=== PATIENT | female | born 1980 | race Caucasian/White ===

== ENCOUNTER 2016-10-22 10:26 | Emergency (ER) | payer BC ==
[2016-10-22 11:14] VITALS: BP 130/83
--- NOTE | 2016-10-22 15:13 | UC ---
Respiratory Complaint HPI - HPI Summary HPI Summary: PATIENT PRESENTS TO WITH CC OF COUGH WITHOUT PRODUCTION, SOB, POST NASAL DRAINAGE, AND SINUS PRESSURE X 5 DAYS. SHE DENIES WILKINSON, N/V/C/D. SHE ENDORSES SICK CONTACTS BUT NO TRAVEL. SHE STATES SHE HAS SOB ONLY WHILE COUGHING. COUGHING IS RATED 8/10 AND WORSE AT NIGHT. DENIES INSOMNIA OR SLEEP APNEA. DENIES ALLERGIES AND TAKES NO MEDICATIONS. SHE STATES SHE GETS SINUS INFECTIONS ABOUT ONCE PER YEAR AND USUALLY IMPROVES ON AZITHROMYCIN. - History of Current Complaint Chief Complaint: UCRespiratory Stated Complaint: COUGH,CHEST CONGESTION Hx Obtained From: Patient Hx Last Menstrual Period: 10/09/16 ?: No Onset/Duration: Sudden Onset Timing: Constant Severity Initially: Moderate Severity Currently: Moderate Pain Intensity: 3 Pain Scale Used: 0-10 Numeric Character: Cough: Nonproductive Aggravating Factors: Allergens, Deep Breaths Alleviating Factors: Bronchodilator, Upright Position Associated Signs And Symptoms: Positive: Negative, URI, Nasal Congestion, Hoarseness, Sinus Discomfort - Risk Factors Pulmonary Embolism Risk Factors: Negative Cardiac Risk Factors: Negative Pseudomonas Risk Factors: Negative Tuberculosis Risk Factors: Negative - Allergies/Home Medications Allergies/Adverse Reactions: Allergies Allergy/AdvReac Type Severity Reaction Status Date / Time No Known Allergies Allergy Verified 10/22/16 11:09 Home Medications: Home Medications [id number] W/ APAP [Delsym Cough + Cold D... [id number] mg/10Ml] 1 liq PO Q4H PRN 10/22/16 [History Confirmed 10/22/16] PMH/Surg Hx/FS Hx/Imm Hx Previously Healthy: Yes Endocrine History Of: Reports: Thyroid Disease - hypothyroidism, Hypothyroidism Cardiovascular History Of: Denies: Pacemaker/ICD Respiratory History Of: Reports: Asthma - Primarily childhood asthma, exacerbated by sports - Surgical History Surgical History: None - Family History Known Family History: Negative: Cardiac Disease, Hypertension, Diabetes - Social History Occupation: Employed Full-time Lives: With Family Alcohol Use: Occasionally Substance Use Type: None Smoking Status (MU): Never Smoked Tobacco - Immunization History Most Recent Influenza Vaccination: 03/2014 Most Recent Tetanus Shot: Within past 5 years Most Recent Pneumonia Vaccination: Never Review of Systems Skin: Negative ENT: Sore Throat, Nasal Discharge Respiratory: Cough Cardiovascular: Negative Neurovascular: Negative Musculoskeletal: Negative Neurological: Negative Psychological: Negative All Other Systems Reviewed And Are Negative: Yes Physical Exam Triage Information Reviewed: Yes Appearance: Well-Appearing, No Pain Distress, Well-Nourished Vital Signs: Initial Vital Signs Temp 99.2 F 10/22/16 11:11 Pulse 84 10/22/16 11:11 Resp 14 10/22/16 11:11 BP 130/83 10/22/16 11:11 Pulse Ox 98 10/22/16 11:11 Vital Signs Reviewed: Yes Eye Exam: Normal Eyes: Positive: Conjunctiva Clear ENT Exam: Normal ENT: Positive: Pharynx normal, Nasal congestion, Nasal drainage, Muffled/hoarse voice, Other: - PRESSURE OVER MAXILLARY AND FRONTAL SINUS BILATERALLY Dental Exam: Normal Neck exam: Normal Neck: Positive: Supple, Nontender, No Lymphadenopathy Respiratory Exam: Normal Respiratory: Positive: Chest non-tender, Lungs clear Cardiovascular Exam: Normal Cardiovascular: Positive: RRR Musculoskeletal Exam: Normal Musculoskeletal: Positive: Strength Intact Neurological Exam: Normal Neurological: Positive: Alert Psychological Exam: Normal Psychological: Positive: Normal Response To Family Skin Exam: Normal UC Diagnostic Evaluation - Laboratory O2 Sat by Pulse Oximetry: 98 Respiratory Course/Dx - Course Course Of Treatment: PATIENT WITH SINUS PRESSURE OVER MAXILLARY SINUS BILATERALLY. COUGH WITH SOB. PATIENT GIVEN ROBITUSSIN, TESSALON PERLES AND AZITHROMYCIN. PATIENT WILL FOLLOW UP OR RETURN IF SYMPTOMS BECOME WORSE. - Differential Dx/Diagnosis Differential Diagnosis/HQI/PQRI: Bronchitis, Laryngitis, Lower Resp Infection, Sinusitis Provider Diagnoses: SINUSITIS Discharge - Discharge Plan Condition: Stable Disposition: HOME Prescriptions: Azithromycin TAB* [Zithromax TAB (Z-BENY) 250 mg #6 tabs] 2 tab PO .TODAY, THEN 1 DAILY #1 beny Benzonatate CAP* [Tessalon CAP*] 100 mg PO TID #21 cap guaiFENesin/CODIEN 100MG-10MG* [Robitussin AC 100Mg-10Mg*] 10 ml PO BEDTIME PRN #60 udc MDD 10 PRN Reason: Cough Patient Education Materials: Sinusitis (ED) Referrals: Dianne Garcia MD [Primary Care Provider] - Additional Instructions: Follow up with PCP. Neti Pot can be used to clear out sinus of infection. Tylenol as needed for discomfort Robitussin with codeine at night for cough Tessalon during the day for cough - up to three times daily. Z-pack for sinusitis.
== END 2016-10-22 12:27 | disposition home or self-care (01) ==
LOC: UCCORT 10:26
DX: J32.9 Chronic sinusitis, unspecified (principal); E03.9 Hypothyroidism, unspecified
CPT/HCPCS: 99212; G0463

== ENCOUNTER 2016-12-12 16:56 | Emergency (ER) | payer BC ==
[2016-12-12 17:06] VITALS: BP 142/83
[2016-12-12] MEDS ORDERED: Albuterol HFA INHALER* 8 gm MDI INH ONE (17:43)
[2016-12-12] MEDS ORDERED: predniSONE TAB* 20 MG PO ONE (17:43)
--- NOTE | 2016-12-12 17:45 | UC ---
Respiratory Complaint HPI - HPI Summary HPI Summary: 36 female has a "bad cold" weeks ago. Has had a cough/wheezing/chest tightness intermittently since then Today had chills and felt out of sorts..had BP checked and it was high Has appt with PMD tomorrow Hx bronchospasm...once admitted to hosp with wheezing about 2 yrs ago had PFTs - History of Current Complaint Chief Complaint: UCGeneralIllness Stated Complaint: high blood pressure reading/light headed Time Seen by Provider: 12/12/16 17:30 Hx Obtained From: Patient Hx Last Menstrual Period: 11/09/16 Onset/Duration: Gradual Onset, Lasting Weeks Severity Initially: Mild Severity Currently: Mild Pain Intensity: 0 Pain Scale Used: 0-10 Numeric Character: Cough: Productive - at times Aggravating Factors: Nothing Alleviating Factors: Nothing Associated Signs And Symptoms: Positive: Wheezing - Allergies/Home Medications Allergies/Adverse Reactions: Allergies Allergy/AdvReac Type Severity Reaction Status Date / Time No Known Allergies Allergy Verified 12/12/16 17:05 PMH/Surg Hx/FS Hx/Imm Hx Previously Healthy: Yes Respiratory History: Bronchitis Psychological History: Anxiety - Surgical History Surgical History: None - Family History Known Family History: Negative: Cardiac Disease, Hypertension, Diabetes - Social History Alcohol Use: Occasionally Substance Use Type: None Smoking Status (MU): Never Smoked Tobacco - Immunization History Most Recent Influenza Vaccination: 03/2014 Most Recent Tetanus Shot: Within past 5 years Most Recent Pneumonia Vaccination: Never Review of Systems Constitutional: Chills Skin: Negative Eyes: Negative ENT: Negative Respiratory: Cough, Other - chest tightness Cardiovascular: Negative Gastrointestinal: Negative Genitourinary: Negative Motor: Negative Neurovascular: Negative Musculoskeletal: Negative Neurological: Negative Psychological: Negative All Other Systems Reviewed And Are Negative: Yes Physical Exam Triage Information Reviewed: Yes Appearance: Well-Appearing, No Pain Distress, Well-Nourished Vital Signs: Initial Vital Signs Temp 99.9 F 12/12/16 16:58 Pulse 81 12/12/16 16:58 Resp 16 12/12/16 16:58 BP 142/83 12/12/16 16:58 Pulse Ox 100 12/12/16 16:58 Eye Exam: Normal Eyes: Positive: Conjunctiva Clear ENT: Positive: Hearing grossly normal, Pharynx normal, TMs normal. Negative: Nasal congestion, Nasal drainage, Tonsillar exudate, Trismus, Muffled/hoarse voice Respiratory: Positive: No accessory muscle use, Respiratory distress, Wheezing - with forced expiration Cardiovascular: Positive: RRR, No Murmur Musculoskeletal: Positive: ROM Intact, No Edema Neurological: Positive: Alert Psychological Exam: Normal Skin Exam: Normal UC Diagnostic Evaluation - Laboratory O2 Sat by Pulse Oximetry: 100 - normal/not hypoxic Respiratory Course/Dx - Differential Dx/Diagnosis Provider Diagnoses: bronchitis with bronchospasm Discharge - Discharge Plan Condition: Stable Disposition: HOME Prescriptions: Amoxicillin (*) [Amoxicillin 875 MG (*)] 875 mg PO BID #14 tab Prednisone [Deltasone] 40 mg PO DAILY #8 tab Patient Education Materials: Bronchospasm (ED) Referrals: Dianne Garcia MD [Primary Care Provider] - 1 Day (follow up as planned) Additional Instructions: use inhaler as directed
== END 2016-12-12 18:06 | disposition home or self-care (01) ==
LOC: UCCORT 16:56
DX: J20.9 Acute bronchitis, unspecified (principal)
CPT/HCPCS: 99212; 99213; A9270-GY; G0463; J7512

== ENCOUNTER 2016-12-18 10:18 | Emergency (ER) | payer BC ==
[2016-12-18] MEDS ORDERED: Albuterol/Ipratropium NEB.SOL* Albuterol 2.5 MG/Ipratropium 0.5 MG 3 ML INH ONE (10:30)
[2016-12-18] MEDS ORDERED: methylPREDNISolone 125 MG* 2 ML VIAL IM ONE (10:34)
--- NOTE | 2016-12-18 10:42 | UC ---
Respiratory Complaint HPI - HPI Summary HPI Summary: Patient was here for outpatient chest xray to evaluated some ongoing wheezing and cough. She was seen at on 12/12/16 for Respiratory issues and placed on amoxicillin and prednisone. she is experiencing moderate - severe difficulty catching her breath and is sitting in the tripod position, breathing shallow. States she "had asthma as a kid" has had pulmonary function testing that did not show asthma. she is afebrile, Outpatient xray neg for pneumonia, positive for inflammation and elevated lung volumes suggestive of COPD. - History of Current Complaint Stated Complaint: DIFFICULTY BREATHING Time Seen by Provider: 12/18/16 10:25 Hx Obtained From: Patient Hx Last Menstrual Period: 11/09/16 ?: No Onset/Duration: Sudden Onset, Lasting Days Timing: Intermittent Episodes - of severity Severity Initially: Mild Severity Currently: Severe Character: Cough: Nonproductive Aggravating Factors: Allergens, Exertion, Deep Breaths, Recumbent Position Alleviating Factors: Nothing Associated Signs And Symptoms: Positive: Dyspnea, Wheezing, URI - Risk Factors Pulmonary Embolism Risk Factors: Negative Cardiac Risk Factors: Negative Pseudomonas Risk Factors: Negative Tuberculosis Risk Factors: Negative - Allergies/Home Medications Allergies/Adverse Reactions: Allergies Allergy/AdvReac Type Severity Reaction Status Date / Time No Known Allergies Allergy Verified 12/18/16 10:30 Home Medications: Home Medications Albuterol HFA INHALER* [Ventolin HFA Inhaler*] 2 puff INH Q6H PRN 12/18/16 [ History Confirmed 12/18/16] Omeprazole CAP* [Prilosec CAP* 20 MG] 20 mg PO DAILY 12/18/16 [History Confirmed 12/18/16] PMH/Surg Hx/FS Hx/Imm Hx Previously Healthy: Yes - Surgical History Surgical History: None - Family History Known Family History: Negative: Cardiac Disease, Hypertension, Diabetes - Social History Alcohol Use: Occasionally Substance Use Type: None Smoking Status (MU): Never Smoked Tobacco - Immunization History Most Recent Influenza Vaccination: 03/2014 Most Recent Tetanus Shot: Within past 5 years Most Recent Pneumonia Vaccination: Never Review of Systems Constitutional: Negative Skin: Negative Eyes: Negative ENT: Negative Respiratory: Shortness Of Breath, Cough Cardiovascular: Negative Gastrointestinal: Negative Genitourinary: Negative Motor: Negative Neurovascular: Negative Musculoskeletal: Negative Neurological: Negative Psychological: Negative All Other Systems Reviewed And Are Negative: Yes Physical Exam Triage Information Reviewed: Yes Appearance: Ill-Appearing, Pain Distress, Obese Vital Signs Reviewed: Yes Eye Exam: Normal ENT: Positive: Pharyngeal erythema, TMs normal Dental Exam: Normal Neck exam: Normal Neck: Positive: Supple, Nontender, No Lymphadenopathy Respiratory: Positive: Respiratory distress - moderate, Decreased breath sounds , Stridor, Wheezing, Inspiration, Other: - tripod position Cardiovascular: Positive: RRR, No Murmur, Pulses Normal Abdominal Exam: Normal Abdomen Description: Positive: Nontender, No Organomegaly, Soft Bowel Sounds: Positive: Present Musculoskeletal Exam: Normal Musculoskeletal: Positive: Strength Intact, ROM Intact, No Edema Neurological Exam: Normal Neurological: Positive: Alert, Muscle Tone Normal Psychological Exam: Normal Skin Exam: Normal Respiratory Course/Dx - Course Course Of Treatment: hx obtained, exam performed, meds reviewed, peak flow testing, neb treatment and solumedrol given. upon discharge patient states she remembered she had to show me a red spot on her arm. there is a large indurated reaaction to what patient thinks is a bug bite. recommend the current order of prednisone and warm compresses to the site. - Differential Dx/Diagnosis Differential Diagnosis/HQI/PQRI: Exacerbation Of COPD, Laryngitis, Lower Resp Infection, Pulmonary Embolism, Sinusitis Provider Diagnoses: moderate respiratory distress. wheezing. shortness of breath Discharge - Discharge Plan Condition: Stable Disposition: HOME Prescriptions: Albuterol 2.5MG/3ML (0.083%)* [Ventolin 2.5 MG/3 ML NEB.KRISH*] 2.5 mg INH Q4H #2 box predniSONE TAB* [Deltasone TAB*] 40 mg PO DAILY #8 tab Patient Education Materials: Reactive Airways Disease (ED) Referrals: Dianne Garcia MD [Primary Care Provider] - Additional Instructions: 1. You responded well to the nebulizer and steroids today. 2. Continue to use the medication as prescribed. 3. We did draw a CBC to rule out infection and a D Dimer to test for possibility of a blood clot. 4. Follow up with your Doctor if symtpoms get worse.
[2016-12-18] MEDS ORDERED: Albuterol 2.5 MG/3 ML NEB.SOL* (0.083%) INH ONE (10:46)
[2016-12-18] MEDS ORDERED: Ipratropium 0.5MG/2.5ML NEB* 0.5 MG/2.5 ML NEB.SOLN INH ONE (10:46)
[2016-12-18 10:50] VITALS: BP 141/86
[2016-12-18 14:18] LABS: Hematocrit 38 % (35-47); Hemoglobin 12.3 g/dl (12.0-16.0); Mean Corpuscular HGB Conc 32 g/dl (31-36); Mean Corpuscular Hemoglobin 28 pg (27-31); Mean Corpuscular Volume 87 fL (80-97); Mean Platelet Volume 9 um3 (7.4-10.4); Red Blood Count 4.37 10^6/ul (4.0-5.4); Red Cell Distribution Width 14 % (10.5-15)
== END 2016-12-18 11:50 | disposition home or self-care (01) ==
LOC: UCCORT 10:18
DX: R06.00 Dyspnea, unspecified (principal); R06.2 Wheezing; R06.02 Shortness of breath; E66.9 Obesity, unspecified
CPT/HCPCS: 36415; 85025; 85379; 93005; 96372; 99212; G0463; J2930; J7644

== ENCOUNTER 2016-12-18 20:20 | Emergency (ER) | payer BC ==
[2016-12-18] MEDS ORDERED: Albuterol/Ipratropium NEB.SOL* Albuterol 2.5 MG/Ipratropium 0.5 MG 3 ML INH ONE (20:49)
[2016-12-18] MEDS ORDERED: hydrOXYzine HCL TAB* 50 MG PO ONE (21:13)
[2016-12-18 22:27] VITALS: BP 136/80
--- NOTE | 2016-12-18 22:29 | ED ---
Yudith Samaniego Edward, scribed for Venancio Valentin MD on 12/18/16 at 2036 . Shortness of Breath - HPI Summary HPI Summary: 36 y/o female presents to ED c/o SOB initial onset at 0800. She was seen by [facility] and treated with a albuterol and atrovent nebulizer, which she states alleviated symptoms. She takes the nebulizer every 4 hours; last nebulizer taken at 18:10. Associated symptoms: wheezing and cough. Patient was seen at Urgent Care today, where she was treated with amoxicillin and prednisone. She also stated she had a similar respiratory issue around 2 years ago and was also treated with a nebulizer then. Secondary complaint of red spots on her left upper arm that spread to her upper back and left shoulder. Patient states that the spots are tender and pruritic. - History of Current Complaint Chief Complaint: EDShortnessOfBreath Time Seen by Provider: 12/18/16 20:32 Hx Obtained From: Patient Onset/Duration: Lasting Hours - today's episode, Lasting Days - prev episode last week, Still Present Timing: Constant Current Severity: Mild Aggrevating Factors: Deep Breaths Alleviating Factors: Bronchodilators - Predisone, Albuterol and Atrovent nebulizer Associated Signs & Symptoms: Cough (Nonproductive), Wheezing Related History: Obesity - Allergy/Home Medications Allergies/Adverse Reactions: Allergies Allergy/AdvReac Type Severity Reaction Status Date / Time No Known Allergies Allergy Verified 12/18/16 21:00 PMH/Surg Hx/FS Hx/Imm Hx Previously Healthy: No Endocrine/Hematology History: Reports: Hx Thyroid Disease - hypothyroidism Cardiovascular History: Denies: Hx Pacemaker/ICD Respiratory History: Reports: Hx Asthma - Primarily childhood asthma, exacerbated by sports Musculoskeletal History: Denies: Hx Arthritis, Hx Osteoporosis Sensory History: Reports: Hx Contacts or Glasses Denies: Hx Hearing Aid Opthamlomology History: Reports: Hx Contacts or Glasses Psychiatric History: Denies: Hx Panic Disorder Infectious Disease History: Denies: Traveled Outside the [place] in Last 30 Days - Family History Known Family History: Negative: Cardiac Disease, Hypertension, Diabetes - Social History Occupation: Employed Full-time Lives: With Family Alcohol Use: Occasionally Hx Substance Use: No Substance Use Type: Reports: None Hx Tobacco Use: No Smoking Status (MU): Never Smoked Tobacco Review of Systems Constitutional: Negative Eyes: Negative ENT: Negative Cardiovascular: Negative Positive: Shortness Of Breath, Cough, Other - wheezing Gastrointestinal: Negative Genitourinary: Negative Musculoskeletal: Negative Positive: Rash - Red spots on upper left arm spreading to upper back and shoulder Neurological: Negative Psychological: Normal All Other Systems Reviewed And Are Negative: Yes Physical Exam Triage Information Reviewed: Yes Vital Signs On Initial Exam: Initial Vitals Temp Pulse Resp BP Pulse Ox 97.4 F 97 22 149/88 95 12/18/16 20:22 12/18/16 20:22 12/18/16 20:22 12/18/16 20:22 12/18/16 20:22 Vital Signs Reviewed: Yes Appearance: Positive: Well-Appearing, No Pain Distress Skin: Positive: Warm, Skin Color Reflects Adequate Perfusion, Dry, Other - Macular rash on outside of left arm, lateral shoulder, and medial left upper arm Head/Face: Positive: Normal Head/Face Inspection Eyes: Positive: Normal ENT: Positive: Normal ENT inspection Neck: Positive: Supple, Nontender Respiratory/Lung Sounds: Positive: Wheezes - Sparse wheezing Cardiovascular: Positive: RRR Abdomen Description: Positive: Nontender, Soft Bowel Sounds: Positive: Present Musculoskeletal: Positive: Normal Neurological: Positive: Normal Psychiatric: Positive: Normal, Affect/Mood Appropriate Diagnostics - Vital Signs Vital Signs Temp Pulse Resp BP Pulse Ox 12/18/16 20:22 97.4 F 97 22 149/88 95 - Laboratory Lab Statement: Any lab studies that have been ordered have been reviewed, and results considered in the medical decision making process. Course/Dx - Course Course Of Treatment: Ms. Solo was not really in any distress on arrival to the ED. She did have some sparse wheezing and some anxiety associated with it. She has been treated appropriately so far and I gave her another duoneb and some hydroxyzine for the itching and she felt a lot better. I recommended that she continue her meds and she should see some improvement by tomorrow. - Diagnoses Provider Diagnoses: Bronchospasm Discharge - Discharge Plan Condition: Stable Disposition: HOME Patient Education Materials: Bronchiolitis (ED) Referrals: Dianne Garcia MD [Primary Care Provider] - 3 Days (Please follow up in 2-3 days) The documentation as recorded by the Yudith banks Edward accurately reflects the service I personally performed and the decisions made by me, Venancio Valentin MD.
== END 2016-12-18 22:26 | disposition home or self-care (01) ==
LOC: ED 20:20
DX: J98.01 Acute bronchospasm (principal); R21 Rash and other nonspecific skin eruption; R06.02 Shortness of breath; R05 Cough; R06.2 Wheezing; Z87.09 Personal history of other diseases of the respiratory system
CPT/HCPCS: 94640; 99282; A9270-GY

== ENCOUNTER 2016-12-24 10:07 | Observation (INO) | payer BC ==
[2016-12-24] MEDS ORDERED: methylPREDNISolone 125 MG* 2 ML VIAL IV ONE (10:28)
[2016-12-24] MEDS ORDERED: NS 0.9% 1000 ML* 1,000 ML IV ONE (10:28)
[2016-12-24] MEDS: Albuterol/Ipratropium NEB.SOL* Albuterol 2.5 MG/Ipratropium 0.5 MG 3 ML INH SCH ×2 (10:41→11:57)
--- NOTE | 2016-12-24 11:03 | RAD ---
Indication: Shortness of breath. 2 views of the chest including dual energy PA views demonstrate no mediastinal shift. Heart is of normal size and configuration. Lung whitney appear clear. IMPRESSION: NO ACTIVE CARDIOPULMONARY DISEASE IS NOTED. NO CHANGES NOTED SINCE DECEMBER 18, 2016.
[2016-12-24 11:25] LABS: FIO2 8; Patient Temp ABG 98.9
[2016-12-24 11:29] LABS: PCO2 Arterial 42 mmHg (35-45)
[2016-12-24 11:32] LABS: Hematocrit 37 % (35-47); Hemoglobin 11.9 g/dl (12.0-16.0); Mean Corpuscular HGB Conc 33 g/dl (31-36); Mean Corpuscular Hemoglobin 28 pg (27-31); Mean Corpuscular Volume 85 fL (80-97); Mean Platelet Volume 8 um3 (7.4-10.4); Red Blood Count 4.34 10^6/ul (4.0-5.4); Red Cell Distribution Width 13 % (10.5-15); White Blood Count 15.1 10^3/ul (3.5-10.8)
[2016-12-24 11:49] LABS: Albumin 4.1 g/dL (3.2-5.2); BUN/Creatinine Ratio 14.8 (8-20); C Reactive Protein 22.41 mg/L (< 5.00); Calcium 9.6 mg/dL (8.6-10.3); EGFR African American 92.5 (>60); EGFR Non-African American 71.9 (>60); Globulin 3.4 g/dL (2-4); Potassium 4.1 mmol/L (3.5-5.0); Total Bilirubin 0.4 mg/dL (0.2-1.0); Total Protein 7.5 g/dL (6.4-8.9)
[2016-12-24 11:56] LABS: Urine Bacteria Absent (Absent); Urine Bilirubin Negative (Negative); Urine Glucose Negative (Negative); Urine Nitrite Negative (Negative)
[2016-12-24] MEDS ORDERED: Iohexol 350* (CONTRAST) 500 ML MDV IV ONE (13:54)
--- NOTE | 2016-12-24 14:09 | RAD ---
INDICATION: Chest pain. Short of breath. Evaluate for pulmonary embolus. COMPARISON: Chest x-ray December 24, 2016 TECHNIQUE: Axial source images were obtained from the thoracic inlet to the hemidiaphragms following administration of [address] angiographic technique was utilized. Coronal and sagittal reconstructed images were acquired. CHEST FINDINGS: Neck/thyroid: The visualized neck to include the thyroid appear normal. Chest wall: There are no acute abnormalities of the bony thorax or chest wall. There is no supraclavicular, infraclavicular, or axillary lymphadenopathy. Lungs : There are no pulmonary parenchymal masses or infiltrates. The pulmonary interstitium appears normal. There are no endobronchial lesions. Cardiomediastinal structures: There is no CT evidence of acute pulmonary embolic disease. The heart is normal in size. There is no pericardial effusion. There is no evidence of aortic aneurysm or dissection. There is no mediastinal or hilar adenopathy. The esophagus appears normal. Pleura : There are no pleural-based masses or effusions. Other: None. IMPRESSION: NO CT EVIDENCE OF ACUTE PULMONARY EMBOLIC DISEASE. LUNGS CLEAR
[2016-12-24] MEDS ORDERED: Acetaminophen TAB* 325 MG PO PRN (17:29)
--- NOTE | 2016-12-24 18:00 | HP ---
History of Present Illness - History of Present Illness Reason for Visit: SOB with worsening cough History of Present Illness: Rand Stevens is a 36 yo obese white female with PMH of hypothyroidism that presents to ED on 12/24 with SOB and worsening cough over the past month. She describes her cough as productive green sputum that with an alternating dry cough. She has been coughing so hard that she is incontinent of urine. Standing makes her cough better and laying down makes the cough worse. She admits to increased wheezing and is unsure if SOB with exertion as she has been refraining herself from exerting herself. When asked about hx of asthma patient states she was hospitalized 2.5 years ago with similar sx but was never diagnosed after PFT. Per report from 11/03/2014 hospitalization, FEV1 was 117% of predicted at baseline but she tested positive after methacholine challenge. Patient admits to pain with breathing and chest pressure. She states she feels as if someone is "sitting on her chest" She also has erythematous rash on the dorsum of her upper arms that appear like hives and are mildly pruritic. Patient also admits increase in diarrhea in the past week and WILKINSON. She denies travel, palpitations, fever, chills, dizziness, numbness, history of blood clots. D-Dimer was done and was negative and Chest/thoracic CTA showed no evidence of PE or infiltrate. Patient discussed in detail the timeline up to today's admission. She states that Wed 12/12 she went to urgent care with worsening symptoms and was perscribed a course of amoxicillin for which she finished, albuterol, and four day course of prednisone. She then went back to the urgent care the next day and got a nebulizer treatment for home. She came to the ED here on 12/18 where she was diagnosed with bronchospasm for which she received Duoneb and hydroxyzine and went home same day with improvement. On Thursday 12/28 she went to [facility] ED with numbness in her face and arms, they ruled out CVA and Zepeda's Palsy and she went home the same day with no diagnosis. She followed up with PCP the next day for which she received another 4 day course of prednisone and omeprazole as she felt bloated and had abdominal pain. Once she finished her prednisone course on Saturday she states her cough was notable worsened and she used her home neb three times until she finally came to the ED this morning. - Past Medical History Endocrine: Hypothyroidism - Past Surgical History Past Surgical History: None - Past Family History Family History: CAD, Hypertension, Other - Father had TN at age 40 - Past Social History Smoke: No Occupation: Has worked for 8 years at [employer] Alcohol: Rare Drugs: None Review of Systems - Review of Systems Other: General: Negative for fever, chills Head: Positive for WILKINSON Negative for dizziness Lungs: Positive for productive cough, SOB, wheezing pain with inspiration, orthopnea Heart: Positive for chest pressure Negative for palpitations Abdomen: Positive for diarrhea over this past week Negative for n/v, constipation Extremities: Positive for edema Negative for numbness, muscle weakness Psych: Positive for increased stress/anxiety Negative for panic attacks - Medications/Allergies Allergies/Adverse Reactions: Allergies Allergy/AdvReac Type Severity Reaction Status Date / Time No Known Allergies Allergy Verified 12/18/16 21:00 Medications: Home medications: Albuterol HFA inhaler (Ventolin) 2 puffs Q 6 hours PRN Omeprazole 20mg PO daily for abdominal discomfort and reflux Levothyroxine 25 mcg PO daily for hypothyroidism Exam - Exam Vital Signs: Vital Signs (72 hours) 12/24/16 12/24/16 16:00 16:26 Temperature 98.1 F Pulse Rate 84 Respiratory 18 18 Rate Blood Pressure 141/89 (mmHg) O2 Sat by Pulse 96 Oximetry General: Patient is an alert and oriented obese 36 yo white female sitting upright in her hospital bed in [facility]. Skin: erythematous wheal appearing skin markings mainly on the posterior arm and some wheals on the legs. Neck: Carotid pulses are 2+ bilaterally with murmurs or thrills. Lungs: Chest is symmetric and nontender to palpation to sterum and rib compression. Deep breaths yield coughing spells for patient. Mild wheezing across lung whitney. No rhonchi or crackles. Heart: RRR no murmurs, rubs, or gallops. Abdomen: Normactive bowel sounds in all 4 quadrants. Abdomen is soft and tender to palpation in RUQ. Extremities: distal pulses are intact, legs without edema. Labs/Diagnostics: WBC 15.1 10^3/ul (3.5-10.8) H 12/24/16 11:10 RBC 4.34 10^6/ul (4.0-5.4) 12/24/16 11:10 Hgb 11.9 g/dl (12.0-16.0) L 12/24/16 11:10 Hct 37 % (35-47) 12/24/16 11:10 MCV 85 fL (80-97) 12/24/16 11:10 MCH 28 pg (27-31) 12/24/16 11:10 MCHC 33 g/dl (31-36) 12/24/16 11:10 RDW 13 % (10.5-15) 12/24/16 11:10 Plt Count 218 10^3/ul (150-450) 12/24/16 11:10 MPV 8 um3 (7.4-10.4) 12/24/16 11:10 Neut % (Auto) 75.4 % (38-83) 12/24/16 11:10 Lymph % (Auto) 16.6 % (25-47) L 12/24/16 11:10 [place] % (Auto) 4.7 % (1-9) 12/24/16 11:10 Eos % (Auto) 2.8 % (0-6) 12/24/16 11:10 Baso % (Auto) 0.5 % (0-2) 12/24/16 11:10 Absolute Neuts (auto) 11.4 10^3/ul (1.5-7.7) H 12/24/16 11:10 Absolute Lymphs (auto) 2.5 10^3/ul (1.0-4.8) 12/24/16 11:10 Absolute Monos (auto) 0.7 10^3/ul (0-0.8) 12/24/16 11:10 Absolute Eos (auto) 0.4 10^3/ul (0-0.6) 12/24/16 11:10 Absolute Basos (auto) 0.1 10^3/ul (0-0.2) 12/24/16 11:10 Absolute Nucleated RBC 0.01 10^3/ul 12/24/16 11:10 Nucleated RBC % 0 12/24/16 11:10 D-Dimer, Quantitative < 200 ng/mL (Less Than 230) 12/24/16 11:10 Patient Temperature 98.9 12/24/16 11:15 ABG pH 7.45 (7.35-7.45) 12/24/16 11:15 ABG pCO2 42 mmHg (35-45) 12/24/16 11:15 ABG pO2 113 mmHg (80-100) H 12/24/16 11:15 ABG HCO3 28.6 mmol/L (19-31) 12/24/16 11:15 ABG O2 Saturation 99.5 % (95-98) H 12/24/16 11:15 ABG Base Excess 4.7 (-2.0-2.0) H 12/24/16 11:15 Respiration Rate Not Reportable 12/24/16 11:15 O2 Delivery Device nebulizer 12/24/16 11:15 Ventilator Type Not Reportable 12/24/16 11:15 Vent Mode Not Reportable 12/24/16 11:15 FiO2 8 12/24/16 11:15 Inspiratory Time Not Reportable 12/24/16 11:15 PEEP Not Reportable 12/24/16 11:15 Pressure Support Not Reportable 12/24/16 11:15 Pressure Control Not Reportable 12/24/16 11:15 EPAP Not Reportable 12/24/16 11:15 IPAP Not Reportable 12/24/16 11:15 BiPAP Not Reportable 12/24/16 11:15 Sodium 136 mmol/L (133-145) 12/24/16 11:10 Potassium 4.1 mmol/L (3.5-5.0) 12/24/16 11:10 Chloride 102 mmol/L (101-111) 12/24/16 11:10 Carbon Dioxide 26 mmol/L (22-32) 12/24/16 11:10 Anion Gap 8 mmol/L (2-11) 12/24/16 11:10 BUN 13 mg/dL (6-24) 12/24/16 11:10 Creatinine 0.88 mg/dL (0.51-0.95) 12/24/16 11:10 Est GFR ( Amer) 92.5 (>60) 12/24/16 11:10 Est GFR (Non-Af Amer) 71.9 (>60) 12/24/16 11:10 BUN/Creatinine Ratio 14.8 (8-20) 12/24/16 11:10 Glucose 104 mg/dL (70-100) H 12/24/16 11:10 Lactic Acid 0.8 mmol/L (0.5-2.0) 12/24/16 11:10 Calcium 9.6 mg/dL (8.6-10.3) 12/24/16 11:10 Total Bilirubin 0.40 mg/dL (0.2-1.0) 12/24/16 11:10 AST 16 U/L (13-39) 12/24/16 11:10 ALT 14 U/L (7-52) 12/24/16 11:10 Alkaline Phosphatase 58 U/L (34-104) 12/24/16 11:10 Total Creatine Kinase 214 U/L (10-223) 12/24/16 11:10 Troponin I 0.00 ng/mL (<0.04) 12/24/16 11:10 C-Reactive Protein 22.41 mg/L (< 5.00) H 12/24/16 11:10 B-Natriuretic Peptide 14 pg/mL (-100) 12/24/16 11:10 Total Protein 7.5 g/dL (6.4-8.9) 12/24/16 11:10 Albumin 4.1 g/dL (3.2-5.2) 12/24/16 11:10 Globulin 3.4 g/dL (2-4) 12/24/16 11:10 Albumin/Globulin Ratio 1.2 (1-3) 12/24/16 11:10 Urine Color Straw 12/24/16 10:45 Urine Appearance Clear 12/24/16 10:45 Urine pH 7.0 (5-9) 12/24/16 10:45 Ur Specific D Hanis 1.006 (1.010-1.030) L 12/24/16 10:45 Urine Protein Negative (Negative) 12/24/16 10:45 Urine Ketones Negative (Negative) 12/24/16 10:45 Urine Blood 3+ (Negative) H 12/24/16 10:45 Urine Nitrate Negative (Negative) 12/24/16 10:45 Urine Bilirubin Negative (Negative) 12/24/16 10:45 Urine Urobilinogen Negative (Negative) 12/24/16 10:45 Ur Leukocyte Esterase Trace (Negative) H 12/24/16 10:45 Urine WBC (Auto) 1+(6-10/hpf) (Absent) H 12/24/16 10:45 Urine RBC (Auto) 3+(>10/hpf) (Absent) H 12/24/16 10:45 Ur Squamous Epith Cells Present (Absent) H 12/24/16 10:45 Urine Bacteria Absent (Absent) 12/24/16 10:45 Urine Glucose Negative (Negative) 12/24/16 10:45 D-Dimer: <200 (negative) CXR: No evidence of active cardiopulmonary disease. EKG: Sinus Rhythm with LVH with normal axis. Thoracic CTA: No evidence of embolic disease. Assessment/Plan - Assessment/Plan Assessment: This is a 36 yo obese white female with PMH of hypothyroidism admitted on 2016 with increasing SOB and cough. Assessment/Plan: 1) Bronchospasm secondary to intrinsic exercised induced asthma: Per positive results from methylcholine challenge, patient does have an exercise induced variant of asthma which has lead to her worsening symptoms of bronchospasm. Patient will be started on 60 mg PO daily prednisone treatment and continue Duonebs Q4 hours while awake. Patient will also be started on LABA and ICS treatment per asthma protocol. Patient will be started on Advair Diskus one inhalation Q 12 hours for combined therapy. Patient will also be started on Azithromycin 250 mg/Sodium Chloride @ 250 mls/hr IV Q 24 hrs for its added benefit of bronchodilation. A Pertussis titer will also be order even though treatment will not vary but for completeness sake. Order for patient to follow up with outpatient pulmonology. 2) Hypothyoidism: Continue Synthroid 25 mcg. 3) DVT Prophylaxis: Anticipate short stay for patient so ambulate patient daily and use of compression devices. 4) Code status: Full code.
[2016-12-24] MEDS: Azithromycin IV(*) 250 MG in NS 0.9% 250 ML* 250 ML IVPB SCH ×2 (18:06→18:11)
--- NOTE | 2016-12-24 18:33 | HP ---
HISTORY AND PHYSICAL: * ADDENDUM: Rand Solo is a 36-year-old obese female with a history of childhood asthma, who presents with asthma exacerbation. The patient is going to be placed on overnight observation. For further details of the patient's presentation and plan, please see history and physical dictated by Hayden Jo on 12/24/16, with which I agree. [id number]/[facility] #: [id number] MTDD
[2016-12-24] MEDS: Albuterol 2.5 MG/3 ML NEB.SOL* (0.083%) INH SCH ×2 (19:30→23:37)
--- NOTE | 2016-12-24 19:31 | HP ---
SUPERVISING PHYSICIAN ADDENDUM NOW INCLUDED ON THIS REPORT CC: Dr. Dianne Garcia* ADMISSION HISTORY AND PHYSICAL: DATE OF ADMISSION: 12/24/16 PRIMARY CARE PROVIDER: Dr. Dianne Garcia. SUPERVISING PHYSICIAN: Candie Gomez MD * (DICTATED BY DARWIN HAMPTON) CHIEF COMPLAINT: Shortness of breath. HISTORY OF PRESENT ILLNESS: This is a 36-year-old female with hypothyroidism and obesity who presented to the emergency department with complaints of shortness of breath and cough. The patient has had symptoms of a cough which has been intermittently productive with associated pleuritic chest pain for about a month. She states that the cough has been worse while lying flat and sitting. She has had multiple medical encounters over the last couple of weeks for these complaints. She was originally seen about 10 days ago at urgent care and treated with albuterol, prednisone, and amoxicillin at that time. She felt that she had improved slightly, but then symptoms got worse again. She was seen in the emergency department and received DuoNeb treatments at that time. She subsequently then presented to [facility] with complaints of numbness in her arms and face and had a reportedly negative workup. This was approximately 5 days ago and then was seen by her primary care provider both on and Saturday of last week and was treated with prednisone and omeprazole again where she thought she received some mild improvement in symptoms. She has had no associated fever or chills. She reports a similar hospital admission approximately 2 years ago. Review of her prior hospital admission shows that her presentation was quite similar, but more dramatic and she was having severe bronchospasm at that time and required an inpatient hospital stay for IV steroids. She subsequently underwent outpatient pulmonary function tests which did demonstrate a positive methacholine challenge. The patient is under the impression that she does not carry the diagnosis of asthma. PAST MEDICAL HISTORY: 1. Hypothyroidism. 2. Obesity. 3. Childhood exercise-induced asthma. PAST SURGICAL HISTORY: None. HOME MEDICATIONS: 1. Nebulized albuterol inhaled q.4 hours as needed for shortness of breath. 2. Albuterol inhaler 2 puffs inhaled q.6 hours as needed for shortness of breath. 3. Levothyroxine 25 mcg p.o. daily. 4. Multivitamin 1 tablet p.o. daily. 5. Omeprazole 20 mg p.o. daily. 6. Prednisone in a tapering dose starting 6 days ago. FAMILY HISTORY: Positive for hypertension and heart disease. SOCIAL HISTORY: The patient denies any smoking history. No occupational exposures. Lives at home with her . REVIEW OF SYSTEMS: As listed above in HPI. All other systems reviewed and negative. PHYSICAL EXAMINATION GENERAL: This is a pleasant 36-year-old obese female who does not appear to be in any acute distress and seems to be somewhat fatigued, lying in the hospital bed. VITAL SIGNS: Temperature 98.3 degrees Fahrenheit, pulse 82 beats per minute, respiratory rate 22 per minute, oxygen saturation 99% on room air, and blood pressure 159/57 mmHg. HEENT: Head is normocephalic, atraumatic. Mucous membranes are pink and moist. RESPIRATORY: She has reduced breath sounds diffusely without significant wheeze or rhonchi. CARDIOVASCULAR: Heart has a regular rate and rhythm without murmurs, rubs, or gallops. ABDOMEN: Soft and nontender to palpation. EXTREMITIES: She has trace edema. LABORATORY EVALUATION: Shows a CBC with white blood cell count of 15,100, hemoglobin 11.9 g/dL, and a platelet count of 218,000. D-dimer negative. ABG shows a normal pH with 7.45, PO2 normal at 113, PCO2 of 42, bicarb 28. Comprehensive metabolic panel shows sodium of 136, potassium 4.1, serum bicarb of 26, BUN 13, creatinine 0.88. Random glucose of 104. Transaminases and total bilirubin within normal limits. Troponin negative. CRP mildly elevated at 22. Urinalysis shows trace leukocyte esterase, positive white blood cells in the urine and 3+ blood. IMAGING: Chest x-ray shows no acute process. CTA shows no PE. Lungs are clear. EKG shows a sinus rhythm and LVH by voltage criteria. ASSESSMENT AND PLAN: This is a 36-year-old female with hypothyroidism and obesity as well as what it seems to be exercise-induced asthma, who presents with complaints of shortness of breath and cough for several weeks. 1. Asthma exacerbation - the patient's presenting symptoms appeared to be consistent with an asthma exacerbation. She received Solu-Medrol and multiple nebulizer treatments in the emergency department with some improvement. She is not hypoxic with a normal ABG and appears to be stable at this time. We will admit for further stabilization of her symptoms. We will treat with scheduled albuterol nebulizers as well as continue oral steroid therapy. We will start combination long-acting beta agonist and inhaled corticosteroid. Also, may be worth checking for pertussis due to her prolonged period of cough at this point which may not do much for her change of her treatment regimen, but would be helpful for contact precaution reasons. 2. Hypothyroidism - plan to continue her current dose of levothyroxine. 3. Obesity with a BMI of 39. 4. Code status - the patient is full code. 5. DVT prophylaxis - the patient is relatively low risk and will be placed on SCDs and encouraged to ambulate regularly. 6. Disposition: The patient is being admitted to observation status with anticipated likely discharge for tomorrow. DARWIN HAMPTON ADDENDUM: Rand Solo is a 36-year-old obese female with a history of childhood asthma, who presents with asthma exacerbation. The patient is going to be placed on overnight observation. For further details of the patient's presentation and plan, please see history and physical dictated by Hayden Jo on 12/24/16, with which I agree. CANDIE GOMEZ MD [id number]/[facility] #: [id number]/[facility] #: [id number] OSEI
[2016-12-24] MEDS: Mometasone/Formoter 100/5 MDI INH SCH (19:33)
[2016-12-25] MEDS: Albuterol 2.5 MG/3 ML NEB.SOL* (0.083%) INH SCH ×2 (03:24→07:41)
[2016-12-25] MEDS: Mometasone/Formoter 100/5 MDI INH SCH (07:41)
[2016-12-25] MEDS ORDERED: predniSONE TAB* 20 MG PO SCH (08:30)
[2016-12-25] MEDS ORDERED: Levothyroxine TAB* 25 MCG TAB PO SCH (09:00)
[2016-12-25 09:03] VITALS: BP 137/81
--- NOTE | 2016-12-25 11:07 | DCNOTE ---
DOA: 12/24/2016 DOD: 12/25/2016 Care team: Admitting provider: Dr. Candie Gomez Attending provider: DARWIN Duque PCP: Dr. Dianne Garcia Discharge diagnosis: 1) Asthma exacerbation Secondary diagnosis: 1) Hypothyroidism 2) Obesity: With BMI of 39 Discharge medications: 1) Dulera 100/5 Two inhalations twice daily. 2) Prednisone 60mg PO daily with 10 mg taper every 3 days (60 mg for one additional day, 50 mg for three days, 40 mg for three days, etc.) 3) Azithromycin 250mg PO for 4 days 4) Albuterol inhaler 2 inhalations every 4-6 hours scheduled dose and then once feeling better use as PRN. 5) Albuterol 2.5 mg nebulizer solution 3-4 times daily as needed. 6) Continue levothyroxine 25 mcg daily for hypothyroidism. Changes to medications: 1) Add Dulera 2) Add prednisone 3) Add Azithromycin 4) Add albuterol Imagin) CXR: no evidence of active cardiopulmonary disease. 2) EKG: Normal sinus rhythm and LVH, no axis deviation. 3) Thoracic CTA: No evidence for pulmonary embolus or lung infiltrate. Hospital Course: This is a 36 yo obese white female with PMH of hypothyroidism presented to the ED on 12/24 with worsening cough and SOB over that past month. Her cough is described as productive green sputum with alternating dry cough over that time. The cough is worse with laying down/sitting and better standing up. She admits to increased wheezing and SOB. Patient has sought out numerous medical encounters over the past two weeks including her original visit to urgent care and was treated with albuterol, prednisone, and amoxicillin at that time. She shara improved but then presented to ED on 12/18 with worsening symptoms and she received multiple DuoNebs. Patient states she went to [facility] ED after discharge from ED here with complaints of numbness and weakness in her legs with negative workup. After discharge there she states she went to her PCP which prescribed her prednisone and omeprazole with some relief. Patient reports hospitalizations 2 years ago with similar symptoms. Review of her admission shows more dramatic bronchospasm that required IV steroid. She underwent outpatient PFT which demonstrated a positive methacholine challenge but the patient is under the impression that she is not an asthmatic. Mrs. Solo was treated for an asthma exacerbation for which she received Solu-Medrol and nebulizer treatments in the ED with mild improvement. She showed continued improvement on albuterol nebulizer treatments and PO steroids. SHe was also started on LABA and inhaled steroids with Dulera for better asthma management. Patient remains stable throughout hospitalization with improving symptoms, normal oxygenation saturations, afebrile with normal ABG. PE upon discharge: General: Patient is obese white female in NAD. Skin: Several wheals appearing on the dorsum of the arms, otherwise no rashes or lesions. Lungs: Mild wheezing across lung whitney. No crackles of rhonchi. Heart: RRR, no murmurs, rubs, or gallops. Abdomen: Soft and tender to palpation, normactive bowel sounds in all four quadrants. Extremities: warm without edema. Follow up Plan/Disposition: Patient is to remain on Long acting beta agonist/inhaled corticosteroid combination (Dulura), prednisone PO 60mg with taper, and albuterol nebulizer treatments as she has a nebulizer at home for asthma management. She will also be instructed to finish her Azithromycin 250 mg orally for the next four days for added bronchodilation. Information regarding medications and tapering prednisone dose was relayed to the patient and any questions or concerns were answered. She will be instructed to follow up with PCP within the next couple of weeks and earlier if symptoms worsen. She will be returning home to her in the [place] area.
--- NOTE | 2016-12-26 04:09 | DS ---
CC: Dr. Dianne Garcia; Dr. Aguilar * DISCHARGE SUMMARY: DATE OF ADMISSION: 12/24/16 DATE OF DISCHARGE: 12/25/16 PRIMARY CARE PROVIDER: Dr. Dianne Garcia. DISCHARGING PROVIDER: DARWIN Hampton SUPERVISING PHYSICIAN: Candie Gomez MD (dictated by DARWIN Hampton) PRIMARY DISCHARGE DIAGNOSIS: Asthma exacerbation. SECONDARY DISCHARGE DIAGNOSES: 1. Hypothyroidism. 2. Obesity with a BMI of 39. DISCHARGE MEDICATIONS: 1. Nebulized albuterol inhaled q.4 hours as needed for shortness of breath. 2. Albuterol inhaler 2 puffs inhaled q.6 hours as needed for shortness of breath. 3. Azithromycin 250 mg p.o. daily x4 days. 4. Levothyroxine 25 mcg p.o. daily. 5. Dulera 100/5 two puffs inhaled twice daily. 6. Multivitamin 1 tablet p.o. daily. 7. Omeprazole 20 mg p.o. daily. 8. Prednisone in a tapering dose starting at 60 mg daily. MEDICATION CHANGES: 1. Tapering prednisone with instructions to take 60 mg for one additional day followed by 50 mg x3 days, followed by 40 mg x3 days, followed by 30 mg x3 days , followed by 20 mg x3 days, followed by 10 mg x3 days. 2. Start Dulera. 3. Azithromycin x4 days. HOSPITAL IMAGIN. Chest x-ray shows no acute process. 2. CTA of the chest shows no PE or infiltrates. HOSPITAL COURSE: This is a 36-year-old female who is obese with hypothyroidism who presented to the emergency department with complaints of shortness of breath and cough. Symptoms had been present for several weeks and she has pursued treatment on multiple occasions, starting at Urgent Care with 3 prior ER visits and seeing her primary care provider on 2 occasions last week. Her symptoms were worse with lying flat and had some associated pleuritic chest pain , but was afebrile at home. She underwent chest x-ray when she reached the emergency department, which was unremarkable followed by a CTA of the chest, which was negative for PE, infiltrates, or other acute process. Initial labs were remarkable for a white blood cell count of 15,000, which was likely due to recent steroid use. Her ABG was normal as was her chemistries. The patient was subsequently admitted to a period of observation and treated for asthma exacerbation. She has a history of exercise-induced asthma as a child and had pulmonary function testing completed a couple of years ago, which showed normal baseline PFTs, but positive methacholine challenge. She had a similar hospital stay in 2014 at which point, she was treated for an asthma exacerbation as well. During her hospital stay, the patient was treated with scheduled albuterol nebs , IV and oral steroids, and started on long-acting beta-agonist and inhaled corticosteroid combination as well as treated with azithromycin. Her bronchospasms seem to improve with this and the patient's symptoms were manageable at the time of discharge and consisted of just an occasional cough, but her dyspnea had resolved. DISPOSITION AND FOLLOWUP PLAN: The patient is being discharged to home where she lives with her . Recommend followup with her primary care provider within the next week, but the patient would likely benefit from pulmonology consultation with Dr. Aguilar. She has been scheduled for outpatient PFTs, which were rescheduled for a couple of weeks from now and the patient was interested in pursuing an fine arts chair consultation, which may be beneficial as well, but advised her to make sure that appointment is after she completes her steroid taper as it may affect skin testing result otherwise. At the time of discharge, her PCR is still pending. Because of the length and severity of her cough, this lab was ordered, but not resulted at discharge. DARWIN HAMPTON [id number]/[facility] #: [id number] OSEI
== END 2016-12-25 12:10 | disposition home or self-care (01) ==
LOC: ED 10:07 → MED 14:52
PROVIDERS: ADMIT Internal Medicine; ATTEND Internal Medicine
DX: J45.901 Unspecified asthma with (acute) exacerbation (principal); E03.9 Hypothyroidism, unspecified; E66.9 Obesity, unspecified; Z68.39 Body mass index [BMI] 39.0-39.9, adult
CPT/HCPCS: 36415; 36600; 71020; 71275; 80053; 81003; 81015; 82550; 82803; 83605; 83880; 84484; 85025; 85379; 86140; 87040; 87070; 87086; 87205; 87798; 93005; 94640; 94760; 96374; 99283; A9270-GY; G0378; J0456; J2930; J7512; Q9967

== ENCOUNTER 2017-02-02 17:48 | Emergency (ER) | payer BC ==
[2017-02-02] MEDS ORDERED: Mupirocin 2% CREAM* 15 GM TOPICAL ONE (18:26)
[2017-02-02] MEDS ORDERED: predniSONE TAB* 20 MG PO ONE (18:27)
[2017-02-02] MEDS ORDERED: Erythromycin OPTH OINT* APPLIC OINT RIGHT EYE ONE (18:27)
[2017-02-02] MEDS ORDERED: Mupirocin 2% OINT* TUBE TOPICAL ONE ×2 (18:29→18:33)
[2017-02-02 18:34] VITALS: BP 132/92
--- NOTE | 2017-02-02 18:34 | UC ---
General HPI - HPI Summary HPI Summary: Patient has crusty red right eye for the past 24 hours she also has a bug bite from last night that is red, hot and large area of erythema on the inner aspect of right ankle - History of Current Complaint Chief Complaint: UCEye Stated Complaint: EYE COMPLAINT/SKIN COMPLAINT Time Seen by Provider: 02/02/17 18:15 Hx Obtained From: Patient Onset/Duration: Sudden Onset, Lasting Days Timing: Constant Onset Severity: Mild Current Severity: Moderate - Allergy/Home Medications Allergies/Adverse Reactions: Allergies Allergy/AdvReac Type Severity Reaction Status Date / Time No Known Allergies Allergy Verified 12/18/16 21:00 Home Medications: Home Medications LoraTADine TAB(NF) [Claritin 10 MG TAB(NF)] 10 mg PO DAILY 02/02/17 [History Confirmed 02/02/17] PMH/Surg Hx/FS Hx/Imm Hx Previously Healthy: Yes Endocrine History: Hypothyroidism Respiratory History: Asthma - Surgical History Surgical History: None - Family History Known Family History: Negative: Cardiac Disease, Hypertension, Diabetes - Social History Alcohol Use: Occasionally Substance Use Type: None Smoking Status (MU): Never Smoked Tobacco - Immunization History Most Recent Influenza Vaccination: 03/2014 Most Recent Tetanus Shot: Within past 5 years Most Recent Pneumonia Vaccination: Never Review of Systems Constitutional: Negative Skin: Other - local allergic reaction Eyes: Negative, Drainage, Eye Redness ENT: Negative Respiratory: Negative Cardiovascular: Negative Gastrointestinal: Negative Genitourinary: Negative Motor: Negative Neurovascular: Negative Musculoskeletal: Negative Neurological: Negative Psychological: Negative All Other Systems Reviewed And Are Negative: Yes Physical Exam Triage Information Reviewed: Yes Appearance: Well-Appearing, Well-Nourished, Pain Distress Vital Signs: Initial Vital Signs Temp 98.6 F 02/02/17 18:09 Pulse 79 02/02/17 18:09 Resp 17 02/02/17 18:09 BP 132/92 02/02/17 18:09 Pulse Ox 100 02/02/17 18:09 Vital Signs Reviewed: Yes Eye Exam: Normal Eyes: Positive: Conjunctiva Inflamed, Discharge ENT Exam: Normal ENT: Positive: Hearing grossly normal, Pharynx normal, TMs normal Dental Exam: Normal Neck exam: Normal Respiratory Exam: Normal Cardiovascular Exam: Normal Abdominal Exam: Normal Bowel Sounds: Positive: Present Musculoskeletal Exam: Normal Musculoskeletal: Positive: Strength Intact, ROM Intact, No Edema Neurological Exam: Normal Neurological: Positive: Alert, Muscle Tone Normal Psychological Exam: Normal Skin: Positive: Other - large 10 cm diamerter area of erythema and warmth on right ankle Course/Dx - Course Course Of Treatment: hx obtained, exam performed ,meds reviewed, treated for allergic reacation, cellulitis and pink eye - Differential Dx - Multi-Symptom Provider Diagnoses: cellulitis,. local allergic reaction to bug bite. conjunctivitis Discharge - Discharge Plan Condition: Stable Disposition: HOME Prescriptions: predniSONE TAB* [Deltasone TAB*] 40 mg PO DAILY #18 tab Patient Education Materials: Conjunctivitis (ED) Additional Instructions: 1. use the medication as prescribed. 2. elevate foot at rest. 3. If redness begins to increase follow up. Addendum entered and electronically signed by Anya Monroy NP 02/02/17 21: 07:
== END 2017-02-02 18:46 | disposition home or self-care (01) ==
LOC: UCCORT 17:48
DX: H10.9 Unspecified conjunctivitis (principal); L03.115 Cellulitis of right lower limb; W57.XXXA Bitten or stung by nonvenomous insect and other nonvenomous arthropods, initial encounter; J45.909 Unspecified asthma, uncomplicated
CPT/HCPCS: 99213; A9270-GY; G0463; J7512

== ENCOUNTER 2017-04-04 19:42 | Emergency (ER) | payer BC ==
[2017-04-04 20:05] VITALS: BP 133/85
--- NOTE | 2017-04-04 20:30 | UC ---
Skin Complaint HPI - HPI Summary HPI Summary: Pt reports that she hit her right lower anterior ankle and has a small abrasion that is tender and erythematous. - History of Current Complaint Chief Complaint: UCSkin Time Seen by Provider: 04/04/17 20:15 Stated Complaint: RIGHT LEG SKIN COMPLAINT Hx Obtained From: Patient Hx Last Menstrual Period: first of Mar 2017 ?: No Onset/Duration: Sudden Onset, Lasting Days Skin Exposure Onset/Duration: Days Ago Timing: Constant Onset Severity: Mild Current Severity: Moderate Location: Discrete - right anterior ankle Character: Pain, Redness Aggravating Factor(s): Touch Alleviating Factor(s): Nothing Associated Signs & Symptoms: Positive: Tenderness Related History: Trauma - hit ankle on right lower anterior ankle - Allergy/Home Medications Allergies/Adverse Reactions: Allergies Allergy/AdvReac Type Severity Reaction Status Date / Time seasonal, cats Allergy Congestion Uncoded 04/04/17 20:06 Home Medications: Home Medications Albuterol 2.5MG/3ML (0.083%)* [Ventolin 2.5 MG/3 ML NEB.KRISH*] 2.5 mg INH Q4H PRN 04/04/17 [History Confirmed 04/04/17] Levocetirizine Dihydrochloride [Levocetirizine Dihydrochl] 5 mg PO QPM 04/04/17 [History Confirmed 04/04/17] Mometasone Furoate (Nasal) [Mometasone Furoate] 50 mcg NA DAILY 04/04/17 [ History Confirmed 04/04/17] Review of Systems Constitutional: Negative Skin: Other - erytheam healing laceration Eyes: Negative ENT: Negative Respiratory: Negative Cardiovascular: Negative Gastrointestinal: Negative Genitourinary: Negative Motor: Negative Neurovascular: Negative Musculoskeletal: Myalgia - right lower anterior ankle Neurological: Negative Psychological: Negative Is Patient Immunocompromised?: No All Other Systems Reviewed And Are Negative: Yes PMH/Surg Hx/FS Hx/Imm Hx Previously Healthy: Yes - Surgical History Surgical History: None - Family History Known Family History: Negative: Cardiac Disease, Hypertension, Diabetes - Social History Occupation: Employed Full-time Lives: With Family Alcohol Use: Occasionally Substance Use Type: None Smoking Status (MU): Never Smoked Tobacco Have You Smoked in the Last Year: No - Immunization History Most Recent Influenza Vaccination: 03/2014 Most Recent Tetanus Shot: Within past 5 years Most Recent Pneumonia Vaccination: Never Physical Exam Triage Information Reviewed: Yes Appearance: Well-Appearing Vital Signs: Initial Vital Signs Temp 97.8 F 04/04/17 19:55 Pulse 72 04/04/17 19:55 Resp 18 04/04/17 19:55 BP 133/85 04/04/17 19:55 Eye Exam: Normal ENT Exam: Normal Respiratory: Positive: No respiratory distress Musculoskeletal Exam: Normal Neurological Exam: Normal Psychological Exam: Normal Skin Exam: Other - 3 cm healing laceration to right lower anterior ankle, 2 cm healing laceration 4 cm erythematous circumference around laceration Course/Dx - Course Course Of Treatment: I presecribed bactrim but patient requested to change to another antibiotic because her mother is allergic to sulfa based medications. It was explained to her that allergies are not genetic or hereditary. I changed prescription to Doxycycline. - Differential Diagnoses - Skin Complaint Differential Diagnoses: Cellulitis, MRSA - Diagnoses Provider Diagnoses: cellulitis Discharge - Discharge Plan Condition: Stable Disposition: HOME Prescriptions: DOXYcycline CAP(*) [DOXYcycline 100MG CAP(*)] 100 mg PO Q12H #14 cap Patient Education Materials: Cellulitis (ED) Referrals: Dianne Garcia MD [Primary Care Provider] - If Needed Additional Instructions: Please follow up with your PCP or return to clinic.
== END 2017-04-04 20:42 | disposition home or self-care (01) ==
LOC: UCCORT 19:42
DX: L03.115 Cellulitis of right lower limb (principal); J30.81 Allergic rhinitis due to animal (cat) (dog) hair and dander; J30.2 Other seasonal allergic rhinitis; X58.XXXA Exposure to other specified factors, initial encounter
CPT/HCPCS: 99212; G0463

== ENCOUNTER 2017-06-05 08:02 | Emergency (ER) | payer BC ==
[2017-06-05 08:12] VITALS: BP 132/88
--- NOTE | 2017-06-05 08:25 | UC ---
Respiratory Complaint HPI - HPI Summary HPI Summary: Cough for about 5days. She has asthma and has been mostly compliant with her steroid inhaler. She denies fever today. She has also had congestion which has been improved by mucinex. - History of Current Complaint Chief Complaint: UCRespiratory Stated Complaint: COUGH Time Seen by Provider: 06/05/17 08:13 Hx Obtained From: Patient Hx Last Menstrual Period: 05/25/17 Onset/Duration: Gradual Onset, Lasting Days, Still Present Timing: Constant Severity Initially: Mild Severity Currently: Moderate Character: Cough: Productive Aggravating Factors: Deep Breaths, Recumbent Position Alleviating Factors: OTC Meds Associated Signs And Symptoms: Positive: Wheezing, URI, Nasal Congestion. Negative: Dyspnea, Fever, Chills, Pleuritic Chest Pain, Hemoptysis, Dizziness, Calf Pain, Calf Swelling - Allergies/Home Medications Allergies/Adverse Reactions: Allergies Allergy/AdvReac Type Severity Reaction Status Date / Time seasonal, cats Allergy Congestion Uncoded 06/05/17 08:06 Home Medications: Home Medications Hydrochlorothiazide TAB* [Hydrodiuril TAB*] 25 mg PO DAILY 06/05/17 [History Confirmed 06/05/17] PMH/Surg Hx/FS Hx/Imm Hx Previously Healthy: No - asthma. - Surgical History Surgical History: None - Family History Known Family History: Positive: Cardiac Disease - Father had CO at 40 y/o Negative: Hypertension, Diabetes - Social History Occupation: Employed Full-time Alcohol Use: Occasionally Substance Use Type: None Smoking Status (MU): Never Smoked Tobacco Have You Smoked in the Last Year: No - Immunization History Most Recent Influenza Vaccination: 2017 Most Recent Tetanus Shot: Within past 5 years Most Recent Pneumonia Vaccination: Never Review of Systems Respiratory: Cough All Other Systems Reviewed And Are Negative: Yes Physical Exam Triage Information Reviewed: Yes Appearance: Well-Appearing, No Pain Distress, Well-Nourished Vital Signs: Initial Vital Signs Temp 98.8 F 06/05/17 08:08 Pulse 95 06/05/17 08:08 Resp 18 06/05/17 08:08 BP 132/88 06/05/17 08:08 Pulse Ox 98 06/05/17 08:08 Vital Signs Reviewed: Yes Eyes: Positive: Conjunctiva Clear ENT: Positive: Nasal congestion, TMs normal, Uvula midline. Negative: Pharyngeal erythema, Tonsillar swelling, Tonsillar exudate, Trismus, Muffled voice, Hoarse voice, Sinus tenderness Neck: Positive: Supple, Nontender, No Lymphadenopathy Respiratory: Positive: Chest non-tender, Lungs clear, Normal breath sounds, No respiratory distress, No accessory muscle use. Negative: Respiratory distress, Decreased breath sounds, Accessory muscle use, Crackles, Rhonchi, Stridor Cardiovascular: Positive: RRR, No Murmur, Pulses Normal Abdomen Description: Positive: Nontender, No Organomegaly. Negative: Distended , Guarding Musculoskeletal: Positive: Strength Intact, ROM Intact, No Edema Neurological: Positive: Alert, Muscle Tone Normal. Negative: Fatigued Psychological Exam: Normal Skin: Negative: rashes UC Diagnostic Evaluation - Laboratory O2 Sat by Pulse Oximetry: 98 Respiratory Course/Dx - Course Course Of Treatment: She will continue mucinex and she has teskaranon lisa at home. - Differential Dx/Diagnosis Provider Diagnoses: viral uri. acute asthma exacerbation. Discharge - Discharge Plan Condition: Good Disposition: HOME Prescriptions: Azithromyxin JEYSON (NF) [Z-Jeyson (Zithromax) 250 mg tabs #6] 2 tab PO .TODAY, THEN 1 DAILY #6 tab predniSONE TAB* [Deltasone TAB*] 20 mg PO DAILY #15 tab Patient Education Materials: Upper Respiratory Infection (ED) Referrals: Dianne Garcia MD [Primary Care Provider] - If Needed
== END 2017-06-05 08:26 | disposition home or self-care (01) ==
LOC: UCCORT 08:02
DX: J06.9 Acute upper respiratory infection, unspecified (principal); J45.901 Unspecified asthma with (acute) exacerbation
CPT/HCPCS: 99212; G0463

== ENCOUNTER 2017-09-18 16:17 | Emergency (ER) | payer BC ==
--- OUTSIDE RECORDS SUMMARY | 2017-09-18 16:28 | XMS REPORT ---
:1980 External Reference #:[id number] Author Organization [facility] Address [address] [place] [address] Phone [phone] Care Team Providers Name Role Phone Dianne Garcia M.D. Care Team Information Mill Work Unavailable Dianne Garcia M.D. Primary Care Physician Unavailable Payers Type Date Identification Numbers Payment Provider Subscriber Commercial Effective: Policy Number: BC/BS Of LUIS EDUARDOEdna Estrella 2012 [id number] [employer] Name: [employer] [address] [address] PayID: [id number] [place] [address] Problems Date Description Provider Status Onset: 11/21/2011 Vitamin D deficiency Renee Dwoning M.D. Active Onset: 11/21/2011 Overweight Renee Downing M.D. Active Onset: 01/21/2012 Deficiency anemias Renee Downing M.D. Active Onset: 01/07/2013 Hypothyroidism Izaiah Culver M.D. Active Onset: 01/07/2013 Hearing loss Izaiah Culver M.D. Active Onset: 01/24/2015 Mixed hyperlipidemia Dianne Garcia M.D. Active Onset: 04/25/2017 Essential hypertension Dianne Garcia M.D. Active Onset: 06/12/2017 Asthma Dianne Garcia M.D. Active Family History Date Family Member(s) Problem(s) Comments Father Coronary Artery Disease (CAD) several CO, pacemaker Onset: (age 40 Father CO Years) Father Hypertension Father Hypercholesterolemia Father Gout Mother Hypothyroidism First Brother None Paternal Grandfather due to CAD () Paternal Grandfather Diabetes Mellitus, II Paternal Grandmother due to CAD () Text Input no family history of breast cancer or colon cancer Social History Type Date Description Comments Marital Status Patient is Living Situation Lives with spouse and daughter Diet Diet is healthy and well balanced; has many fruits and vegetable; she eats sweets to excess at times; she is working on Weight Watchers Pets Household pets include a dog 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 Cigarette Use Nonsmoker Cigarette Use Never Smoked Cigarettes ETOH Use Occasional Smoking Patient has never smoked Exercise Type/Frequency Current cardio and strength video 5 days a week for thirty minutes, heavy exertion Seat Belt/Car Seat Always uses a seat belt Guns in Home There are not guns in the home Smoke Alarms There are smoke alarms in the house Currently Active The patient is currently sexually active # Partners in a Lifetime The patient has had over 5 sexual partners Allergies, Adverse Reactions, Alerts Date Description Reaction Status Severity Comments 09/13/2010 NKDA active Medications Medication Date Status Form Strength Qnty SIG Indications Ordering Provider Clotrimazole 09/10 Active Cream 2% 42gm apply to affected mauricio Garcia M.DCar twice a day Hydrochlorothiaz 09/08 Active Tablets 25mg 30tabs Take One Tablet By Blane Garcia M.DCar Every Day Ciclopirox 06/12 Active Solution 8% 6.600ml once a B35.1 day to nigel Garcia M.D. toenails Omeprazole 04/25 Active Capsules 20mg 90caps 1 by R10.13 soham Olmstead M.D. Dulera 12/28 Active Aerosol 100-5mcg/ 17.6gm inhale Act two puffs Jose by blane M.DCar twice a day Multi 01/07 Active Tablets 100tabs 1 po qd Bliss A. Vitamin/Minerals [place] Full Spectrum Loco Levothyroxine 09/04 Active Tablets 25mcg 90tabs Take One E07.9 Dianne Sodium Tablet By Blane Garcia M.DCar Every Day Levocetirizine Active Tablets 5mg 1 by Unknown Dihydrochloride /0000 mouth every day Proair HFA Active Aerosol 108(90Bas 2 puffs Unknown /0000 e) every 4 mcg/Act hours as needed Hydrochlorothiaz 06/19 Hx Tablets 12.5mg 30tabs Take One Dianne Tablet By [place], - Mouth M.D. 09/08 Every Hydrochlorothiaz 06/12 Hx Tablets 25mg 30tabs 1 by Dianne mouth [place], - every day M.D. 06/19 Hydrochlorothiaz 04/25 Hx Tablets 12.5mg 30tabs 1 by Dianne bethanie mouth [place], - every day M.D. 06/12 Doxycycline 04/09 Hx Tablets 150mg Dianne Hyclate /2016 [place], - M.D. 04/09 Albuterol 12/28 Hx Nebulizer (5mg/ML) 40ml 1 unit R06.2 Dianne Sulfate 0.5% every 6 , - hours as M.D. 04/08 needed Hydroxyzine HCL 12/21 Hx Tablets 25mg 60tabs 1 tab R21 three [place], - times a M.D. 04/08 day as needed itch Omeprazole 12/13 Hx Capsules 20mg 90caps 1 by R10.13 Hodan /2017 DR blane Gibson, - twice WINDOW TINTER 04/08 daily-- pty stomach Physical Therapy 05/02 Hx evaluatio Hodan /2016 Rosie, - treatment WINDOW TINTER [id number] floor dysfuncti on Prednisone 10/19 Hx Tablets 20mg 21tabs 3 tabs x 493.92 4 days, 2 [place], - tab x 3 M.D. 12/06 days, tab x 3 days then stop Ambien 10/19 Hx Tablets 5mg 30tabs 1 tab by 300.00 mouth at [place], - bedtime M.D. 11/17 as needed Physical Therapy 07/07 Hx evaluate 719.46 and treat [place], - neck and M.D. 09/19 l shoulder pain and L knee pain Note - Exercise 08/18 Hx ok to . exercise [place], - without M.D. 01/14 restricti on Penicillin V 01/16 Hx Tablets 500mg 21tabs one . tablet po [place], - tid for 7 M.D. Levothyroxine 11/22 Hx Tablets 25mcg 90tabs 1 po qd 246.9 Renee M. Sodium [place] - M.DCar 08/19 Lac-Hydrin 11/20 Hx Lotion 12% 400gm apply to 692.9 Renee M. feet at [facility], - hs M.D. 05/25 + Dha 11/20 Hx Misc 27-1& 90units 1 po qd V65.49 [facility]. 01/07 alterativ e vitamin w/ efas is fine) Fluticasone 09/03 Hx Suspension 50mcg/Act 16gm 2 sprays 461.8 Renee M. Propionate each [place], - nostril M.D. 11/20 Azithromycin 09/03 Hx Tablets 250mg 6tabs 2 po 461.8 Renee M. /2011 today and [place], - 1 po x 4 M.D. Augmentin 10/09 Hx Tablets 875-125mg 28tabs 1 po bid 465.9 Emy with food Yuri, - x 14d WINDOW TINTER 09/03 Robitussin A-C 10/09 Hx 120ml 1-2 tsp 465.9 po q4h Yuri, - prn cough WINDOW TINTER 09/03 Symbicort 10/09 Hx Aerosol 80-4.5mcg sample 2 puff 465.9 Emy /Act bid Yuri, - WINDOW TINTER 09/03 Vitamin D3 09/13 Hx 2000Unit 90units 1 po qd 268.9 Renee M. [place] - M.D. 05/25 Cryselle-28 Hx Tablets 0.3-30mg- 1pk 1 po qd Unknown /0000 mcg - 09/03 Proair HFA 00 Hx Aerosol 108(90Bas 1Mdi 2 puffs Unknown /0000 e) mcg/ac every 4 - hours as 09/03 for cough Iron Hx otc Unknown /0000 - 05/25 Proair HFA 00 Hx Aerosol 108(90Bas 2 puffs Unknown /0000 e) every 4 - mcg/Act hours as 11/17 Prednisone Hx Tablets 20mg 2 po qd Unknown /0000 for 3 - days 10/19 Advair Diskus Hx Aerosol 250-50mcg 1inhale 1 puff Hodan /0000 /Dose r twice a Arthur, - day WINDOW TINTER 12/[address] Ferrous Sulf[address] Hx Table[address] 325(65Fe) 1 by Unknown /0000 mg mouth - every day 04/08 Medrol 00 Hx Tablets 4mg dose-pack Unknown /0000 as - instructe 04/08 Doxycycline Hx Capsules 100mg 1 by Unknown Hyclate /0000 mouth - twice a Immunizations CPT Code Status Date Vaccine Lot # [id number] Given 11/21/2011 Tdap Tetanus, W Pertussis [id number] Vital Signs Date Vital Result Comment 09/10/2017 BP Systolic 124 mmHg BP Diastolic 86 mmHg Heart Rate 68 /min Body Temperature 98.6 F Respiratory Rate 18 /min Height 65.75 inches 5'5.75" Weight 246.00 lb BMI (Body Mass Index) 40.0 kg/m2 06/12/2017 BP Systolic 130 mmHg BP Diastolic 90 mmHg Heart Rate 84 /min Body Temperature 98.2 F Respiratory Rate 18 /min Height 65.75 inches 5'5.75" Weight 244.00 lb BMI (Body Mass Index) 39.7 kg/m2 04/09/2017 BP Systolic 142 mmHg BP Diastolic 90 mmHg Heart Rate 96 /min Body Temperature 97.7 F Height 65.75 inches 5'5.75" Weight 248.12 lb BMI (Body Mass Index) 40.3 kg/m2 02/06/2017 BP Systolic 120 mmHg BP Diastolic 80 mmHg Heart Rate 80 /min Body Temperature 98.2 F Respiratory Rate 16 /min Height 65.75 inches 5'5.75" Weight 255.25 lb BMI (Body Mass Index) 41.5 kg/m2 12/28/2016 BP Systolic 132 mmHg BP Diastolic 80 mmHg Heart Rate 84 /min Body Temperature 97.9 F Respiratory Rate 20 /min Height 65.75 inches 5'5.75" Weight 246.00 lb BMI (Body Mass Index) 40.0 kg/m2 12/24/2016 BP Systolic 128 mmHg BP Diastolic 78 mmHg Heart Rate 82 /min Body Temperature 98.1 F Respiratory Rate 20 /min O2 % BldC Oximetry 93 % Height 65.75 inches 5'5.75" Weight 246.25 lb BMI (Body Mass Index) 40.0 kg/m2 12/24/2016 BP Systolic 128 mmHg BP Diastolic 78 mmHg Heart Rate 82 /min Body Temperature 98.1 F Height 65.75 inches 5'5.75" Weight 246.25 lb BMI (Body Mass Index) 40.0 kg/m2 12/13/2016 BP Systolic 128 mmHg BP Diastolic 78 mmHg Heart Rate 98 /min Body Temperature 98.8 F Respiratory Rate 18 /min O2 % BldC Oximetry 98 % Height 65.75 inches 5'5.75" Weight 248.00 lb BMI (Body Mass Index) 40.3 kg/m2 08/23/2016 BP Systolic 130 mmHg BP Diastolic 80 mmHg Heart Rate 72 /min Body Temperature 98.2 F Respiratory Rate 16 /min Height 65.75 inches 5'5.75" Weight 246.00 lb BMI (Body Mass Index) 40.0 kg/m2 01/27/2016 BP Systolic 122 mmHg BP Diastolic 80 mmHg Heart Rate 72 /min Body Temperature 98.1 F Respiratory Rate 16 /min Height 65.75 inches 5'5.75" Weight 219.12 lb BMI (Body Mass Index) 35.6 kg/m2 11/18/2015 BP Systolic 130 mmHg BP Diastolic 80 mmHg Heart Rate 80 /min Body Temperature 98.3 F Height 65 inches 5'5" Weight 220.00 lb BMI (Body Mass Index) 36.6 kg/m2 01/24/2015 BP Systolic 126 mmHg BP Diastolic 70 mmHg Heart Rate 84 /min Body Temperature 97.9 F Respiratory Rate 16 /min Height 65 inches 5'5" Weight 249.00 lb BMI (Body Mass Index) 41.4 kg/m2 12/06/2014 BP Systolic 124 mmHg BP Diastolic 68 mmHg Heart Rate 84 /min Body Temperature 98.1 F Respiratory Rate 16 /min Height 65 inches 5'5" Weight 248.00 lb BMI (Body Mass Index) 41.3 kg/m2 10/19/2014 BP Systolic 140 mmHg BP Diastolic 90 mmHg Heart Rate 88 /min Body Temperature 99.6 F Respiratory Rate 20 /min O2 % BldC Oximetry 98 % Height 65 inches 5'5" Weight 245.00 lb BMI (Body Mass Index) 40.8 kg/m2 10/05/2014 BP Systolic 130 mmHg BP Diastolic 74 mmHg Heart Rate 84 /min Body Temperature 97.9 F Respiratory Rate 18 /min O2 % BldC Oximetry 99 % Height 65 inches 5'5" Weight 246.00 lb BMI (Body Mass Index) 40.9 kg/m2 09/20/2014 BP Systolic 130 mmHg BP Diastolic 80 mmHg Heart Rate 92 /min Body Temperature 99.3 F O2 % BldC Oximetry 95 % Height 65 inches 5'5" 07/07/2014 BP Systolic 120 mmHg BP Diastolic 84 mmHg Heart Rate 80 /min Body Temperature 99.2 F Respiratory Rate 16 /min Height 65 inches 5'5" Weight 247.00 lb BMI (Body Mass Index) 41.1 kg/m2 01/15/2014 BP Systolic 130 mmHg BP Diastolic 70 mmHg Heart Rate 90 /min Body Temperature 97.7 F Height 65 inches 5'5" Weight 235.12 lb BMI (Body Mass Index) 39.1 kg/m2 06/16/2013 BP Systolic 142 mmHg BP Diastolic 88 mmHg Heart Rate 64 /min Body Temperature 99.3 F Respiratory Rate 16 /min Height 65 inches 5'5" Weight 239.00 lb BMI (Body Mass Index) 39.8 kg/m2 05/26/2013 BP Systolic 130 mmHg BP Diastolic 82 mmHg Heart Rate 72 /min Body Temperature 97.9 F Height 65 inches 5'5" Weight 238.38 lb BMI (Body Mass Index) 39.7 kg/m2 01/07/2013 BP Systolic 134 mmHg BP Diastolic 80 mmHg Heart Rate 76 /min Body Temperature 98.8 F Respiratory Rate 18 /min Height 65 inches 5'5" Weight 235.50 lb BMI (Body Mass Index) 39.2 kg/m2 08/14/2012 BP Systolic 110 mmHg BP Diastolic 70 mmHg Heart Rate 60 /min Body Temperature 98.1 F Height 65 inches 5'5" Weight 237.00 lb BMI (Body Mass Index) 39.4 kg/m2 02/14/2012 BP Systolic 130 mmHg BP Diastolic 80 mmHg Heart Rate 84 /min Body Temperature 98.6 F Height 65 inches 5'5" Weight 232.00 lb BMI (Body Mass Index) 38.6 kg/m2 01/21/2012 BP Systolic 140 mmHg BP Diastolic 90 mmHg Heart Rate 78 /min Body Temperature 98.3 F Height 65 inches 5'5" Weight 236.00 lb BMI (Body Mass Index) 39.3 kg/m2 11/21/2011 BP Systolic 120 mmHg BP Diastolic 80 mmHg Heart Rate 64 /min Body Temperature 98.8 F Height 65 inches 5'5" Weight 234.00 lb BMI (Body Mass Index) 38.9 kg/m2 09/03/2011 BP Systolic 132 mmHg BP Diastolic 90 mmHg Heart Rate 78 /min Body Temperature 97.8 F Height 65 inches 5'5" Weight 235.00 lb BMI (Body Mass Index) 39.1 kg/m2 10/09/2010 BP Systolic 140 mmHg BP Diastolic 80 mmHg Heart Rate 98 /min Body Temperature 99.3 F Respiratory Rate 20 /min O2 % BldC Oximetry 98 % Height 65 inches 5'5" Weight 234.00 lb BMI (Body Mass Index) 38.9 kg/m2 09/13/2010 BP Systolic 128 mmHg BP Diastolic 82 mmHg Heart Rate 72 /min Respiratory Rate 15 /min Height 65 inches 5'5" Weight 236.00 lb BMI (Body Mass Index) 39.3 kg/m2 Results Test Date Test Result H/L Range Note Laboratory test finding 04/25/2017 Troponin I 0.00 ng/mL <0.04 CBC Auto Diff 04/24/2017 White Blood Count 10.9 10^3/uL High 3.5-10.8 Red Blood Count 4.19 10^6/uL 4.0-5.4 Hemoglobin 11.8 g/dL Low 12.0-16.0 Hematocrit 36 % 35-47 Mean Corpuscular Volume 85 fL 80-97 Mean Corpuscular Hemoglobin 28 pg 27-31 Mean Corpuscular HGB Conc 33 g/dL 31-36 Red Cell Distribution Width 13 % 10.5-15 Platelet Count 251 10^3/uL 150-450 Mean Platelet Volume 8 um3 7.4-10.4 Abs Neutrophils 6.8 10^3/uL 1.5-7.7 Abs Lymphocytes 3.1 10^3/uL 1.0-4.8 Abs Monocytes 0.7 10^3/uL 0-0.8 Abs Eosinophils 0.1 10^3/uL 0-0.6 Abs Basophils 0.1 10^3/uL 0-0.2 Abs Nucleated RBC 0.01 10^3/uL Granulocyte % 62.1 % 38-83 Lymphocyte % 28.5 % 25-47 Monocyte % 6.8 % 1-9 Eosinophil % 1.3 % 0-6 Basophil % 1.3 % 0-2 Nucleated Red Blood Cells % 0.1 Laboratory test finding 04/24/2017 Lactic Acid 0.7 mmol/L 0.5-2.0 1 Inr/Protime 04/24/2017 Inr 1.02 0.89-1.11 Comp Metabolic Panel 04/24/2017 Sodium 136 mmol/L 133-145 Potassium 4.0 mmol/L 3.5-5.0 Chloride 104 mmol/L 101-111 Co2 Carbon Dioxide 27 mmol/L 22-32 Anion Gap 5 mmol/L 2-11 Glucose 104 mg/dL High 70-100 Blood Urea Nitrogen 10 mg/dL 6-24 Creatinine 0.82 mg/dL 0.51-0.95 BUN/Creatinine Ratio 12.2 8-20 Calcium 9.4 mg/dL 8.6-10.3 Total Protein 7.6 g/dL 6.4-8.9 Albumin 4.3 g/dL 3.2-5.2 Globulin 3.3 g/dL 2-4 Albumin/Globulin Ratio 1.3 1-3 Total Bilirubin 0.40 mg/dL 0.2-1.0 Alkaline Phosphatase 57 U/L 34-104 Alt 14 U/L 7-52 Ast 17 U/L 13-39 Egfr Non- 78.0 >60 Egfr 100.3 >60 2 Laboratory test finding 04/24/2017 Troponin I 0.00 ng/mL <0.04 HCG < 0.60 mIU/mL 3 TSH (Thyroid Stim Horm) 2.28 mcIU/mL 0.34-5.60 Laboratory test finding 04/10/2017 C Reactive Protein 13.14 mg/L High &lt ; 5.00 4 TSH (Thyroid Stim Horm) 1.90 mcIU/mL 0.34-5.60 Free T4 (Free Thyroxine) 0.95 ng/dL 0.61-1.12 Vitamin B12 524 pg/mL 180-914 5 Hemoglobin A1c (Glyco HGB) 5.7 % Less than 6.0 6 Rheumatoid Factor <15 IU/mL <15 7 Anti Nuclear Antibody 0.2 U 8 Lipid Profile (Trig/Chol/HDL) 04/10/2017 Triglycerides 60 mg/dL 9 Cholesterol 191 mg/dL 10 HDL Cholesterol 61.6 mg/dL 11 LDL Cholesterol 117 mg/dL 12 Comp Metabolic Panel 04/10/2017 Sodium 136 mmol/L 133-145 Potassium 4.1 mmol/L 3.5-5.0 Chloride 103 mmol/L 101-111 Co2 Carbon Dioxide 26 mmol/L 22-32 Anion Gap 7 mmol/L 2-11 Glucose 99 mg/dL 70-100 Blood Urea Nitrogen 17 mg/dL 6-24 Creatinine 0.81 mg/dL 0.51-0.95 BUN/Creatinine Ratio 21.0 High 8-20 Calcium 9.5 mg/dL 8.6-10.3 Total Protein 7.3 g/dL 6.4-8.9 Albumin 4.3 g/dL 3.2-5.2 Globulin 3.0 g/dL 2-4 Albumin/Globulin Ratio 1.4 1-3 Total Bilirubin 0.40 mg/dL 0.2-1.0 Alkaline Phosphatase 52 U/L 34-104 Alt 13 U/L 7-52 Ast 18 U/L 13-39 Egfr Non- 79.1 >60 Egfr 101.8 >60 13 CBC Auto Diff 04/10/2017 White Blood Count 8.3 10^3/uL 3.5-10.8 Red Blood Count 4.21 10^6/uL 4.0-5.4 Hemoglobin 11.7 g/dL Low 12.0-16.0 Hematocrit 36 % 35-47 Mean Corpuscular Volume 85 fL 80-97 Mean Corpuscular Hemoglobin 28 pg 27-31 Mean Corpuscular HGB Conc 33 g/dL 31-36 Red Cell Distribution Width 14 % 10.5-15 Platelet Count 234 10^3/uL 150-450 Mean Platelet Volume 9 um3 7.4-10.4 Abs Neutrophils 5.4 10^3/uL 1.5-7.7 Abs Lymphocytes 2.1 10^3/uL 1.0-4.8 Abs Monocytes 0.5 10^3/uL 0-0.8 Abs Eosinophils 0.2 10^3/uL 0-0.6 Abs Basophils 0.1 10^3/uL 0-0.2 Abs Nucleated RBC 0 10^3/uL Granulocyte % 65.3 % 38-83 Lymphocyte % 25.4 % 25-47 Monocyte % 6.2 % 1-9 Eosinophil % 2.3 % 0-6 Basophil % 0.8 % 0-2 Nucleated Red Blood Cells % 0 Urinalysis Profile 04/10/2017 Urine Color Straw Urine Appearance Clear Urine Specific [place] 1.006 Low 1.010-1.030 Urine pH 6.0 5-9 Urine Urobilinogen Negative Negative Urine Ketones Negative Negative Urine Protein Negative Negative Urine Leukocytes Negative Negative Urine Blood 3+ Negative Urine Nitrite Negative Negative Urine Bilirubin Negative Negative Urine Glucose Negative Negative Urine White Blood Cell Trace(0-5/hpf) Absent Urine Red Blood Cell Trace(0-2/hpf) Absent Urine Bacteria Absent Absent Urine Squamous Epithelial Cell Present Absent 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 14 Note See Comment: 14, 20 Iglbp See Comment: 14, 21 HPV Aptima Negative Negative 14, 22 Laboratory test finding 04/09/2017 PDF [id number] SEE IMAGE 14 Arterial Blood Gas 12/24/2016 O2 Device nebulizer Fio2 8 Patient Temp ABG 98.9 PH Arterial 7.45 7.35-7.45 Pco2 Arterial 42 mmHg 35-45 Po2 Arterial 113 mmHg High 80-100 O2 Saturation Arterial 99.5 % High 95-98 Base Excess Arterial 4.7 High -2.0-2.0 23 Hco3 Arterial 28.6 mmol/L 19-31 Laboratory test 12/24/2016 D Dimer Quantitative < 200 ng/mL Less Than 24 finding 230 CBC Auto Diff 12/24/2016 White Blood Count 15.1 10^3/uL High 3.5-10.8 Red Blood Count 4.34 10^6/uL 4.0-5.4 Hemoglobin 11.9 g/dL Low 12.0-16.0 Hematocrit 37 % 35-47 Mean Corpuscular Volume 85 fL 80-97 Mean Corpuscular Hemoglobin 28 pg 27-31 Mean Corpuscular HGB Conc 33 g/dL 31-36 Red Cell Distribution Width 13 % 10.5-15 Platelet Count 218 10^3/uL 150-450 Mean Platelet Volume 8 um3 7.4-10.4 Abs Neutrophils 11.4 10^3/uL High 1.5-7.7 Abs Lymphocytes 2.5 10^3/uL 1.0-4.8 Abs Monocytes 0.7 10^3/uL 0-0.8 Abs Eosinophils 0.4 10^3/uL 0-0.6 Abs Basophils 0.1 10^3/uL 0-0.2 Abs Nucleated RBC 0.01 10^3/uL Granulocyte % 75.4 % 38-83 Lymphocyte % 16.6 % Low 25-47 Monocyte % 4.7 % 1-9 Eosinophil % 2.8 % 0-6 Basophil % 0.5 % 0-2 Nucleated Red Blood Cells % 0 Laboratory test finding 12/24/2016 B-Type Natriuretic Peptide 14 pg/mL 25 BNP Comp Metabolic Panel 12/24/2016 Sodium 136 mmol/L 133-145 Potassium 4.1 mmol/L 3.5-5.0 Chloride 102 mmol/L 101-111 Co2 Carbon Dioxide 26 mmol/L 22-32 Anion Gap 8 mmol/L 2-11 Glucose 104 mg/dL High 70-100 Blood Urea Nitrogen 13 mg/dL 6-24 Creatinine 0.88 mg/dL 0.51-0.95 BUN/Creatinine Ratio 14.8 8-20 Calcium 9.6 mg/dL 8.6-10.3 Total Protein 7.5 g/dL 6.4-8.9 Albumin 4.1 g/dL 3.2-5.2 Globulin 3.4 g/dL 2-4 Albumin/Globulin Ratio 1.2 1-3 Total Bilirubin 0.40 mg/dL 0.2-1.0 Alkaline Phosphatase 58 U/L 34-104 Alt 14 U/L 7-52 Ast 16 U/L 13-39 Egfr Non- 71.9 >60 Egfr 92.5 >60 26 Laboratory test finding 12/24/2016 Creatine Kinase(CK) 214 U/L 10-223 C Reactive Protein 22.41 mg/L High < 5.00 27 Troponin I 0.00 ng/mL <0.04 Lactic Acid 0.8 mmol/L 0.5-2.0 28 Urinalysis Profile 12/24/2016 Urine Color Straw Urine Appearance Clear Urine Specific [place] 1.006 Low 1.010-1.030 Urine pH 7.0 5-9 Urine Urobilinogen Negative Negative Urine Ketones Negative Negative Urine Protein Negative Negative Urine Leukocytes Trace Negative Urine Blood 3+ Negative Urine Nitrite Negative Negative Urine Bilirubin Negative Negative Urine Glucose Negative Negative Urine White Blood Cell 1+(6-10/hpf) Absent Urine Red Blood Cell 3+(>10/hpf) Absent Urine Bacteria Absent Absent Urine Squamous Epithelial Cell Present Absent Laboratory test finding 12/24/2016 Blood Culture SEE RESULT BELOW 29 Urine Culture And Sensitivities SEE RESULT BELOW 30 CBC Auto Diff 12/18/2016 White Blood Count 16.0 10^3/uL High 3.5-10.8 Red Blood Count 4.37 10^6/uL 4.0-5.4 Hemoglobin 12.3 g/dL 12.0-16.0 Hematocrit 38 % 35-47 Mean Corpuscular Volume 87 fL 80-97 Mean Corpuscular Hemoglobin 28 pg 27-31 Mean Corpuscular HGB Conc 32 g/dL 31-36 Red Cell Distribution Width 14 % 10.5-15 Platelet Count 230 10^3/uL 150-450 Mean Platelet Volume 9 um3 7.4-10.4 Abs Neutrophils 12.8 10^3/uL High 1.5-7.7 Abs Lymphocytes 2.0 10^3/uL 1.0-4.8 Abs Monocytes 0.8 10^3/uL 0-0.8 Abs Eosinophils 0.4 10^3/uL 0-0.6 Abs Basophils 0.1 10^3/uL 0-0.2 Abs Nucleated RBC 0.01 10^3/uL Granulocyte % 80.1 % 38-83 Lymphocyte % 12.2 % Low 25-47 Monocyte % 5.2 % 1-9 Eosinophil % 2.2 % 0-6 Basophil % 0.3 % 0-2 Nucleated Red Blood Cells % 0 Laboratory test 12/18/2016 D Dimer Quantitative < 200 ng/mL Less Than 31 finding 230 Laboratory test 12/13/2016 Sedimentation Rate 23 mm finding CBC Electronic 12/13/2016 WBC 16.1 High 3.6-9.6 32 (Fma) RBC 4.23 3.90-5.70 Hemoglobin (Fma/CMC/CTX) 12.2 g/dL 12.1 - 17.2 Hematocrit (Fma/CMC/CTX) 36.5 % 36.1 - 50.3 Platelets 277 10^3/ul 150-400 Lymph% 11.5 % Low 17.0-48.0 Mixed% 3.4 Neutrophils % 85.1 Mean Corpuscular Vol 86 82.2-97.4 Mean Corpuscular Hemoglobin 28.9 27.6-33.3 Mean Corpuscular Hemo Concen 33.4 32.0-36.0 RDW 13.8 High 11.6-13.7 Mean Platelet Volume 7.3 5.5-11.0 Laboratory test finding 12/13/2016 TSH 0.55 mIU/L 0.50-6.00 Free T4 0.91 ng/dL 0.75-1.54 Comprehensive Metabolic Prof 12/13/2016 Sodium 140 mEq/L 134-149 Potassium 4.3 mEq/L 3.6-5.5 Chloride 106 mEq/L 94-112 Carbon Dioxide 23 mEq/L 21-32 Glucose 118 mg/dL High 70-105 33 BUN 17 mg/dL 6-26 Creatinine 0.8 mg/dL 0.6-1.4 BUN/Creat Ratio 21.3 CALC 8.0-36.0 Calcium 9.6 mg/dL 8.6-10.2 Total Protein 7.6 g/dL 6.4-8.3 Albumin 4.6 g/dL 3.8-5.5 Globulin 3.0 g/dL 2.0-4.8 A/G Ratio 1.5 CALC 0.6-2.3 Alk. Phosphatase 63 U/L 30-110 Alt (SGPT) 16 U/L 7-35 Ast (Sgot) 22 U/L 5-34 Total Bilirubin 0.3 mg/dL 0.2-1.3 GFR Non- >60 ml/min/1.73m^ >=60 GFR >60 ml/min/1.73m^ >=60 Iron And Tibc 08/23/2016 Iron Bind.Cap.(Tibc) 353 g/dL 250-450 Uibc 286 g/dL 131-425 Iron, Serum 67 g/dL 27-159 Iron Saturation 19 % 15-55 Laboratory test finding 08/23/2016 Lipase, Serum 32 U/L 0-59 Complete Blood Count 08/23/2016 WBC 8.5 x10^3/UL 3.6-9.6 RBC 4.24 x10^6/UL 3.90-5.70 HGB 12.2 g/dL 12.1-17.2 HCT 37 % 36-50 MCV 87.0 fL 82.2-97.4 MCH 28.7 pg 27.6-33.3 MCHC 33.1 g/dL 33.0-35.5 RDW 13.8 % High 11.6-13.7 PLT 249 x10^3/UL 150-400 MPV 7.4 fL 7.4-10.4 Gran # 5.9 x10^3/UL 1.5-7.2 Lymph# 2.4 x10^3/UL 0.7-4.9 Crowley# 0.2 x10^3/UL 0.1-0.9 Gran % 67.8 % 42.2-75.2 Lymph % 28.8 % 20.5-51.1 Crowley% 3.4 % 1.7-9.3 Laboratory test finding 08/23/2016 Free T3 2.01 pg/mL 2.00-4.90 Free T4 0.92 ng/dL 0.75-1.54 TSH 2.06 mIU/L 0.50-6.00 Amylase, Serum 42 U/L 20-105 Comprehensive Metabolic Prof 08/23/2016 Sodium 141 mEq/L 134-149 Potassium 4.9 mEq/L 3.6-5.5 Chloride 108 mEq/L 94-112 Carbon Dioxide 27 mEq/L 21-32 Glucose 96 mg/dL 70-105 BUN 20 mg/dL 6-26 Creatinine 0.7 mg/dL 0.6-1.4 BUN/Creat Ratio 28.6 CALC 8.0-36.0 Calcium 10.0 mg/dL 8.6-10.2 Total Protein 7.8 g/dL 6.4-8.3 Albumin 4.5 g/dL 3.8-5.5 Globulin 3.3 g/dL 2.0-4.8 A/G Ratio 1.4 CALC 0.6-2.3 Alk. Phosphatase 58 U/L 30-110 Alt (SGPT) 16 U/L 7-35 Ast (Sgot) 22 U/L 5-34 Total Bilirubin 0.3 mg/dL 0.2-1.3 GFR Non- >60 ml/min/1.73m^ >=60 GFR >60 ml/min/1.73m^ >=60 Laboratory test finding 08/23/2016 Vitamin B-12 700 pg/mL 230-1050 Ua - Non Micro (a) 01/27/2016 Appearance CLEAR Color YELLOW Glucose, Urine (a/CMC/CTX) NEG Bilirubin NEG Ketones NEG SP Grav 1.010 Blood NEG PH 7.0 Protein NEG Urobil 0.2 Nitrite NEG Leukocytes (a/[facility]) NEG Comprehensive Metabolic Prof 01/27/2016 Sodium 137 mEq/L 134-149 Potassium 4.2 mEq/L 3.6-5.5 Chloride 100 mEq/L 94-112 Carbon Dioxide 25 mEq/L 21-32 Glucose 93 mg/dL 70-105 BUN 17 mg/dL 6-26 Creatinine 0.7 mg/dL 0.6-1.4 BUN/Creat Ratio 24.3 CALC 8.0-36.0 Calcium 9.6 mg/dL 8.6-10.2 Total Protein 7.7 g/dL 6.4-8.3 Albumin 4.7 g/dL 3.8-5.5 Globulin 3.0 g/dL 2.0-4.8 A/G Ratio 1.6 CALC 0.6-2.3 Alk. Phosphatase 59 U/L 30-110 Alt (SGPT) 14 U/L 7-35 Ast (Sgot) 19 U/L 5-34 Total Bilirubin 0.4 mg/dL 0.2-1.3 GFR Non- >60 ml/min/1.73m^ >=60 GFR >60 ml/min/1.73m^ >=60 Lipid Profile 01/27/2016 Cholesterol 203 mg/dL High 120-200 Triglycerides 94 mg/dL 30-200 HDL Cholesterol 67 mg/dL 30-85 LDL (Calculated) 117 CALC 0-129 VLDL Cholesterol 19 mg/dL 0-50 HDL Risk Factor 3.0 CALC 0.0-4.4 Laboratory test finding 01/27/2016 TSH 1.53 mIU/L 0.50-6.00 Free T4 1.07 ng/dL 0.75-1.54 Laboratory test 01/27/2016 Antinuclear Negative 34, 35 finding Antibodies, Ifa Rheumatoid Arthritis 01/27/2016 Ra Latex Turbid. 8.1 IU/mL 0.0-13.9 34 Factor ([facility]) Laboratory test 11/18/2015 LDH 164 IU/L 119-226 36 finding Ebv Acute Infection 11/18/2015 Ebv Ab Vca, IgM <36.0 U/mL 0.0-35.9 36 , 37 Antibodies Profile Ebv Early Antigen Ab, IgG <9.0 U/mL 0.0-8.9 36, 38 Ebv Ab Vca, IgG 150.0 U/mL High 0.0-17.9 36, 39 Ebv Nuclear Antigen Ab, IgG 250.0 U/mL High 0.0-17.9 36, 40 Interpretation: See Comment: 36, 41 Laboratory test finding 11/18/2015 RPR Non Reactive Non Reactive 36 Parvovirus B19, IgG 0.2 index 0.0-0.8 36, 42 Parvovirus B19, IgM 0.1 index 0.0-0.8 36, 43 HIV 1/O/2 Ag/AB 11/18/2015 HIV Screen 4th Non Reactive Non Reactive 36 Prelim Generation wRfx W/Evans RFX Sup CMV Igg/Igm 11/18/2015 Cytomegalovirus (CMV) 4.90 U/mL High 0.00-0.59 36 , 44 Ab, IgG Cytomegalovirus (CMV) Ab, IgM <30.0 AU/mL 0.0-29.9 36, 45 Laboratory test finding 11/18/2015 TSH 2.47 mIU/L 0.50-6.00 Free T4 0.97 ng/dL 0.75-1.54 Comprehensive Metabolic Prof 11/18/2015 Sodium 142 mEq/L 134-149 Potassium 4.7 mEq/L 3.6-5.5 Chloride 103 mEq/L 94-112 Carbon Dioxide 24 mEq/L 21-32 Glucose 97 mg/dL 70-105 BUN 20 mg/dL 6-26 Creatinine 0.7 mg/dL 0.6-1.4 BUN/Creat Ratio 28.6 CALC 8.0-36.0 Calcium 9.9 mg/dL 8.6-10.2 Total Protein 7.3 g/dL 6.4-8.3 Albumin 4.3 g/dL 3.8-5.5 Globulin 3.0 g/dL 2.0-4.8 A/G Ratio 1.4 CALC 0.6-2.3 Alk. Phosphatase 62 U/L 30-110 Alt (SGPT) 12 U/L 7-35 Ast (Sgot) 18 U/L 5-34 Total Bilirubin 0.3 mg/dL 0.2-1.3 GFR Non- >60 ml/min/1.73m^ >=60 GFR >60 ml/min/1.73m^ >=60 CBC Manual Diff-[facility] 11/18/2015 WBC 7.2 3.6-9.6 RBC 4.22 3.90-5.70 Hemoglobin (Fma/CMC/CTX) 12.3 g/dL 12.1 - 17.2 Hematocrit (Fma/CMC/CTX) 37.0 % 36.1 - 50.3 Mean Corpuscular Vol 88 82.2-97.4 Mean Corpuscular Hemoglobin 29.3 27.6-33.3 Mean Corpuscular Hemo Concen 33.4 32.0-36.0 Platelets 247 10^3/ul 150-400 RDW 13.7 11.6-13.7 Mean Platelet Volume 7.2 5.5-11.0 Neutrophil 64 Band 1 Lymphocytes 31 Monocyte 3 Eosinophils 1 Anisocytosis (a/CMC/Centrex) slight Hypochrom slight Z#Comment plts normal Laboratory test finding 11/18/2015 Monospot ([facility]) NEGATIVE Laboratory test finding 01/18/2015 TSH 1.69 mIU/L 0.50-6.00 Free T4 0.89 ng/dL 0.75-1.54 Complete Blood Count 01/18/2015 WBC 7.9 x10^3/UL 3.6-9.6 RBC 4.22 x10^6/UL 3.90-5.70 HGB 12.5 g/dL 12.1-17.2 HCT 37 % 36-50 MCV 87.0 fL 82.2-97.4 MCH 29.6 pg 27.6-33.3 MCHC 34.1 g/dL 33.0-35.5 RDW 13.3 % 11.6-13.7 PLT 235 x10^3/UL 150-400 MPV 7.1 fL Low 7.4-10.4 Gran # 5.2 x10^3/UL 1.5-7.2 Lymph# 2.4 x10^3/UL 0.7-4.9 Crowley# 0.3 x10^3/UL 0.1-0.9 Gran % 64.1 % 42.2-75.2 Lymph % 31.0 % 20.5-51.1 Crowley% 4.9 % 1.7-9.3 Laboratory test finding 01/18/2015 Serum Iron 49 g/dL Low 60-150 46 Lipid Profile 01/18/2015 Cholesterol 222 mg/dL High 120-200 Triglycerides 73 mg/dL 30-200 HDL Cholesterol 69 mg/dL 30-85 LDL (Calculated) 138 CALC High 0-129 VLDL Cholesterol 15 mg/dL 0-50 HDL Risk Factor 3.2 CALC 0.0-4.4 Comprehensive Metabolic Prof 01/18/2015 Sodium 135 mEq/L 134-149 Potassium 4.3 mEq/L 3.6-5.5 Chloride 101 mEq/L 94-112 Carbon Dioxide 23 mEq/L 21-32 Glucose 105 mg/dL 70-105 BUN 13 mg/dL 6-26 Creatinine 0.8 mg/dL 0.6-1.4 BUN/Creat Ratio 16.3 CALC 8.0-36.0 Calcium 9.6 mg/dL 8.6-10.2 Total Protein 7.1 g/dL 6.4-8.3 Albumin 4.5 g/dL 3.8-5.5 Globulin 2.6 g/dL 2.0-4.8 A/G Ratio 1.7 CALC 0.6-2.3 Alk. Phosphatase 55 U/L 30-110 Alt (SGPT) 15 U/L 7-35 Ast (Sgot) 20 U/L 5-34 Total Bilirubin 0.3 mg/dL 0.2-1.3 CBC Auto Diff 09/20/2014 White Blood Count 20.4 10^3/uL High 4.8-10.8 Red Blood Count 4.38 10^6/uL 4.0-5.4 Hemoglobin 12.5 g/dL 12.0-16.0 Hematocrit 38 % 35-47 Mean Corpuscular Volume 86 fL 80-97 Mean Corpuscular Hemoglobin 28 pg 27-31 Mean Corpuscular HGB Conc 33 g/dL 31-36 Red Cell Distribution Width 14 % 10.5-15 Platelet Count 257 10^3/uL 150-450 Mean Platelet Volume 8 um3 7.4-10.4 Abs Neutrophils 15.5 10^3/uL High 1.5-7.7 Abs Lymphocytes 2.5 10^3/uL 1.0-4.8 Abs Monocytes 1.4 10^3/uL High 0-0.8 Abs Eosinophils 0.9 10^3/uL High 0-0.6 Abs Basophils 0.1 10^3/uL 0-0.2 Abs Nucleated RBC 0 10^3/uL Granulocyte % 75.9 % 38-83 Lymphocyte % 12.4 % Low 25-47 Monocyte % 6.9 % 1-9 Eosinophil % 4.4 % 0-6 Basophil % 0.4 % 0-2 Nucleated Red Blood Cells % 0 Laboratory test finding 09/20/2014 Lactic Acid 0.8 mmol/L 0.5-2.2 Inr/Protime 09/20/2014 Inr 1.02 0.78-1.07 Laboratory test finding 09/20/2014 Activated Partial 31.4 seconds 26.0- 36.3 47 Thrombo Time D Dimer Quantitative 204 ng/mL Less Than 230 48 Comp Metabolic Panel 09/20/2014 Sodium 131 mmol/L Low 133-145 Potassium 3.7 mmol/L 3.5-5.0 Chloride 100 mmol/L Low 101-111 Co2 Carbon Dioxide 24 mmol/L 22-32 Anion Gap 7 mmol/L 2-11 Glucose 123 mg/dL High 70-100 Blood Urea Nitrogen 11 mg/dL 6-24 Creatinine 0.74 mg/dL 0.51-0.95 BUN/Creatinine Ratio 14.9 8-20 Calcium 9.6 mg/dL 8.6-10.3 Total Protein 7.9 g/dL 6.4-8.9 Albumin 4.3 g/dL 3.2-5.2 Globulin 3.6 g/dL 2-4 Albumin/Globulin Ratio 1.2 1-3 Total Bilirubin 0.40 mg/dL 0.2-1.0 Alkaline Phosphatase 54 U/L 34-104 Alt 14 U/L 7-52 Ast 20 U/L 13-39 Egfr Non- 88.8 >60 Egfr 114.2 >60 49 Laboratory test finding 09/20/2014 Magnesium 2.0 mg/dL 1.9-2.7 Troponin I 0.00 ng/mL <0.03 50 TSH (Thyroid Stimulating Horm) 1.18 IU/mL 0.34-5.60 C Reactive Protein 31.22 mg/L High < 5.00 51 Comprehensive Metabolic Prof 01/18/2014 Sodium 138 mEq/L 134-149 Potassium 4.4 mEq/L 3.6-5.5 Chloride 104 mEq/L 94-112 Carbon Dioxide 23 mEq/L 21-32 Glucose 95 mg/dL 70-105 BUN 15 mg/dL 6-26 Creatinine 0.9 mg/dL 0.6-1.4 BUN/Creat Ratio 16.7 CALC 8.0-36.0 Calcium 9.1 mg/dL 8.6-10.2 Total Protein 7.7 g/dL 6.3-8.1 Albumin 4.5 g/dL 3.8-5.5 Globulin 3.2 g/dL 2.0-4.8 A/G Ratio 1.4 CALC 0.6-2.3 Alk. Phosphatase 64 U/L 30-110 Alt (SGPT) 13 U/L 7-35 Ast (Sgot) 13 U/L 5-34 Total Bilirubin 0.4 mg/dL 0.2-1.3 Lipid Profile 01/18/2014 Cholesterol 190 mg/dL 120-200 Triglycerides 96 mg/dL 30-200 HDL Cholesterol 50 mg/dL 30-85 LDL (Calculated) 121 CALC 0-129 VLDL Cholesterol 19 mg/dL 0-50 HDL Risk Factor 3.8 CALC 0.0-4.4 Laboratory test finding 01/18/2014 TSH 1.72 mIU/L 0.50-6.00 Free T4 0.93 ng/dL 0.75-1.54 Complete Blood Count 01/18/2014 WBC 7.2 x10^3/UL 3.6-9.6 RBC 3.95 x10^6/UL 3.90-5.70 HGB 11.8 g/dL Low 12.1-17.2 52 HCT 34 % Low 36-50 53 MCV 87.0 fL 82.2-97.4 MCH 29.9 pg 27.6-33.3 MCHC 34.5 g/dL 33.0-35.5 RDW 11.7 % 11.6-13.7 PLT 214 x10^3/UL 150-400 MPV 7.4 fL 7.4-10.4 Gran # 4.9 x10^3/UL 1.5-7.2 Lymph# 2.0 x10^3/UL 0.7-4.9 Crowley# 0.3 x10^3/UL 0.1-0.9 Gran % 65.9 % 42.2-75.2 Lymph % 29.1 % 20.5-51.1 Crowley% 5.0 % 1.7-9.3 Ua - Micro ([facility]) 01/15/2014 Appearance clear Color yellow Glucose neg Bilirubin neg Ketones neg SP Grav 1.010 Blood trace-lysed PH 6.5 Protein neg Urobil 0.2 Nitrite neg Leukocytes (Fma/CMC/Centrex) neg Hyaline - /Lpf Granular - /Lpf WBC ([facility]) 1-2 RBC 1-2 Mucus - /Lpf Epith occass /Lpf Bacteria - /Hpf Amorphous - /Lpf Crystals, Fluid (a/CMC/CTX) - Z#Comments - Laboratory test finding 05/26/2013 TSH 2.38 mIU/L 0.50-6.00 Comprehensive Metabolic Prof 05/26/2013 Albumin 4.4 g/dL 3.8-5.5 Alk. Phos. 67 U/L 30-110 Alt (SGPT) 12 U/L 7-35 Ast (Sgot) 20 U/L 5-34 BUN 18 mg/dL 6-26 Calcium 9.4 mg/dL 8.6-10.2 Chloride 102 mEq/L 94-112 Creatinine 0.9 mg/dL 0.6-1.4 Carbon Dioxide 23 mEq/L 21-32 Glucose 77 mg/dL 70-105 Sodium 138 mEq/L 134-149 Total Bilirubin 0.2 mg/dL 0.2-1.3 Total Protein 7.3 g/dL 6.3-8.1 Potassium 4.3 mEq/L 3.6-5.5 Globulin 3.0 g/dL 2.0-4.8 A/G Ratio 1.5 Calc 0.6-2.3 BUN/Creat Ratio 19.8 Calc 8.0-36.0 CBC Electronic ([facility]) 05/26/2013 WBC 9.5 3.6-9.6 RBC 4.04 3.90-5.70 Hemoglobin (a/CMC/CTX) 11.5 g/dL Low 12.1 - 17.2 Hematocrit (a/CMC/CTX) 35.2 % Low 36.1 - 50.3 Platelets 247 10^3/ul 150-400 Lymph% 27.9 20.5-51.1 Mixed% 4.9 Neutrophils % 67.2 Mean Corpuscular Vol 87 82.2-97.4 Mean Corpuscular Hemoglobin 28.5 27.6-33.3 Mean Corpuscular Hemo Concen 32.7 32.0-36.0 RDW 11.8 11.6-13.7 Mean Platelet Volume 6.9 6.5-11.0 Laboratory test finding 05/26/2013 D Dimer Quantitative 206 ng/mL 0.0- 400 Laboratory test finding 01/23/2013 Thyroid Peroxidase AB 10 IU/mL 0-34 Lipid Profile 01/23/2013 Cholesterol 201 mg/dL High 120-200 HDL 57 mg/dL 30-85 Triglycerides 61 mg/dL 30-200 HDL Risk Factor 3.5 CALC 0.0-4.4 LDL (Calculated) 132 CALC High 0-129 VLDL (Calculated) 12 mg/dL 0-50 Basic Metabolic Profile 01/23/2013 BUN 15 mg/dL 6-26 Calcium 10.0 mg/dL 8.6-10.2 Chloride 99 mEq/L 94-112 Creatinine 0.9 mg/dL 0.6-1.4 Carbon Dioxide 25 mEq/L 21-32 Glucose 96 mg/dL 70-105 Sodium 136 mEq/L 134-149 Potassium 4.5 mEq/L 3.6-5.5 BUN/Creat Ratio 17.6 Calc 8.0-36.0 Laboratory test finding 01/23/2013 TSH 1.56 mIU/L 0.50-6.00 Free T4 1.04 ng/dL 0.75-1.54 CBC Electronic (a) 01/23/2013 WBC 7.4 3.6-9.6 RBC 4.25 3.90-5.70 Hemoglobin (Fma/CMC/CTX) 12.0 g/dL Low 12.1 - 17.2 Hematocrit (Fma/CMC/CTX) 36.2 % 36.1 - 50.3 Platelets 238 10^3/ul 150-400 Lymph% 27.8 20.5-51.1 Mixed% 3.8 Neutrophils % 68.4 Mean Corpuscular Vol 85 82.2-97.4 Mean Corpuscular Hemoglobin 28.3 27.6-33.3 Mean Corpuscular Hemo Concen 33.2 32.0-36.0 RDW 12.1 11.6-13.7 Mean Platelet Volume 6.9 6.5-11.0 Laboratory test finding 01/07/2013 Urine Culture Enterococcus anabela <SEE 54 NOTE> Ua - Micro ([facility]) 01/07/2013 Appearance CLEAR Color YELLOW Glucose NEG Bilirubin NEG Ketones NEG SP Grav 1.015 Blood TRACE-INTACT PH 6.5 Protein NEG Urobil 0.2 Nitrite NEG Leukocytes (Fma/CMC/[facility]) LARGE Hyaline - /Lpf Granular - /Lpf WBC (a,[facility]) 20-30 RBC 1-2 Mucus - /Lpf Epith OCC /Lpf Bacteria 2+ /Hpf Amorphous - /Lpf Crystals, Fluid (a/CMC/CTX) - Z#Comments - Laboratory test finding 08/14/2012 Free T3 2.89 pg/mL 2.00-4.90 Free T4 1.10 ng/dL 0.75-1.54 TSH 0.89 mIU/L 0.50-6.00 Laboratory test finding 02/12/2012 Free T4 0.93 ng/dL 0.75-1.54 TSH 1.78 mIU/L 0.50-6.00 Free T3 2.35 pg/mL 2.00-4.90 Laboratory test 02/12/2012 Vitamin D, 25 Oh 27.4 ng/mL Low 30.0-100.0 55 finding Laboratory test 02/12/2012 Hematocrit 37.4 % 36.1 - 50.3 finding (Fma/CMC/CTX) Ua - Micro ([facility]) 11/21/2011 Appearance CLOUDY Color YELLOW Glucose, Urine (a/CMC/CTX) NEG Bilirubin NEG Ketones NEG SP Grav 1.025 Blood TRACE-INTACT PH 5.5 Protein NEG Urobil 0.2 Nitrite NEG Leukocytes (Fma/CMC/Centrex) NEG Hyaline - /Lpf Granular - /Lpf WBC (a,[facility]rex) - RBC 0-1 Mucus (Fma/CBC/Centrex) - /Lpf Epith - /Lpf Bacteria - /Hpf Amorphous (Fma/CMC/[facility]rex) - /Lpf Crystals, Fluid (Fma/CMC/CTX) - Z#Comments - CBC Electronic ([facility]) 11/21/2011 WBC 7.7 3.6-9.6 RBC 4.09 3.90-5.70 Hemoglobin (Fma/CMC/CTX) 11.6 g/dL Low 12.1 - 17.2 Hematocrit (Fma/CMC/CTX) 35.3 % Low 36.1 - 50.3 Platelets 225 10^3/ul 150-400 Lymph% 28.4 20.5-51.1 Mixed% 3.2 Neutrophils % 68.4 Mean Corpuscular Vol 86 82.2-97.4 Mean Corpuscular Hemoglobin 28.3 27.6-33.3 Mean Corpuscular Hemo Concen 32.8 32.0-36.0 RDW 11.8 11.6-13.7 Mean Platelet Volume 7.7 6.5-11.0 Laboratory test finding 11/21/2011 Vitamin D, 25 Oh 28.2 ng/mL Low 30.0- 100.0 56 Laboratory test finding 11/21/2011 TSH 2.17 mIU/L 0.50-6.00 Free T4 0.72 ng/dL Low 0.75-1.54 57 Free T3 2.12 pg/mL 2.00-4.90 Basic Metabolic Profile 11/21/2011 BUN 12 mg/dL 6-26 Calcium 9.6 mg/dL 8.6-10.2 Chloride 103 mEq/L 94-112 Creatinine 0.7 mg/dL 0.6-1.4 Carbon Dioxide 25 mEq/L 21-32 Glucose 102 mg/dL 70-105 Sodium 143 mEq/L 134-149 Potassium 5.0 mEq/L 3.6-5.5 BUN/Creat Ratio 15.9 Calc 8.0-36.0 Urine (Fma) 11/21/2011 SP Grav 1.025 Urine, (Fma/CMC/CTX) NEGATIVE Laboratory test finding 09/13/2010 Vitamin D, 25 Oh 28.2 ng/mL Low 32.0- 100.0 58 Laboratory test finding 09/13/2010 TSH 2.08 mIU/L 0.50-6.00 Free T4 1.05 ng/dL 0.75-1.54 Laboratory test finding 10/31/2009 [facility] [place] Lab Test B12,FOLATE 1 [facility] Severe Sepsis and Septic Shock Management Bundle Measure requires all lactic acids initially measuring >2.0 mmol/L be repeated. 2 Because ethnic data is not always readily available, this report includes an eGFR for both -Americans and non- Americans. The National Kidney Disease Education Program (NKDEP) does not endorse the use of the MDRD equation for patients that are not between the ages of 18 and 70, are , have extremes of body size, muscle mass, or nutritional status, or are non- or non-. According to the National Kidney Foundation, irrespective of diagnosis, the stage of the disease is based on the level of kidney function: Stage Description GFR(mL/min/1.73 m(2)) 1 Kidney damage with normal or decreased GFR 90 2 Kidney damage with mild decrease in GFR 60-89 3 Moderate decrease in GFR 30-59 4 Severe decrease in GFR 15-29 5 Kidney failure <15 (or dialysis) 3 <5.0 Negative 5.0 - 25.0 Indeterminate (Repeat testing recommended after 72 hours) >25.0 Positive Perimenopausal women can display HCG levels of up to 20 mIU/mL 4 Acute inflammation: >10.00 5 Normal Range 180 to 914 Indeterminate Range 145 to 180 Deficient Range <145 6 Therapeutic target for the treatment of diabetes Mellitus patients is <7% HBA1C, and in selective patients <6.0%.Please refer to [place] [employer] Diabetic care guidelines for further information. 7 Test Performed by: [address] [id number] 8 REFERENCE VALUE <=1.0 (Negative) Test Performed by: [address] [id number] 9 Desirable <150 Borderline high 150-199 High 200-499 Very High >500 10 Desirable <200 Borderline high 200-239 High >239 11 Low <40 Desirable: 40-60 High: >60 12 Desirable: <100 mg/dL Near Optimal: 100-129 mg/dL Borderline High: 130-159 mg/dL High: 160-189 mg/dL Very High: >189 mg/dL 13 Because ethnic data is not always readily available, this report includes an eGFR for both -Americans and non- Americans. The National Kidney Disease Education Program (NKDEP) does not endorse the use of the MDRD equation for patients that are not between the ages of 18 and 70, are , have extremes of body size, muscle mass, or nutritional status, or are non- or non-. According to the National Kidney Foundation, irrespective of diagnosis, the stage of the disease is based on the level of kidney function: Stage Description GFR(mL/min/1.73 m(2)) 1 Kidney damage with normal or decreased GFR 90 2 Kidney damage with mild decrease in GFR 60-89 3 Moderate decrease in GFR 30-59 4 Severe decrease in GFR 15-29 5 Kidney failure <15 (or dialysis) 14 Source.............[employer] Dates / Results....2014 No. of containers..01 ThinPrep Vial [id number] 15 NEGATIVE FOR INTRAEPITHELIAL LESION AND MALIGNANCY. REACTIVE CELLULAR CHANGES AND/OR REPAIR ARE PRESENT. 16 Satisfactory for evaluation. Endocervical and/or squamous metaplastic cells (endocervical component) are present. 17 Z12.4 18 Brenna Vlae, Woods Superintendent (ASCP) 19 Denise Urbina MD, Pathologist 20 The Pap smear is a screening test designed to aid in the detection of premalignant and malignant conditions of the uterine cervix. It is not a diagnostic procedure and should not be used as the sole means of detecting cervical cancer. Both false-positive and false-negative reports do occur. 21 This liquid based ThinPrep(R) pap test was screened with the use of an image guided system. 22 This test detects fourteen high-risk HPV types (16/18/31/33/35/39/45/ 51/52/56/58/59/66/68) without differentiation. 23 Reference ranges based on room air. 24 Please note: The following may produce a false positive D Dimer test: - Rheumatoid factor greater than 60 IU/ml - Plasma hemoglobin greater than 0.05 gm/dl - Bilirubin greater than 50 mg/dl - Lipids greater than 1000 mg/dl - FDP greater than 20 ug/ml 25 >100 to <200 pg/mL: likely compensated congestive heart failure (CHF) 200 to 400 pg/mL: likely moderate CHF >400 pg/mL: likely moderate to severe CHF 26 Because ethnic data is not always readily available, this report includes an eGFR for both -Americans and non- Americans. The National Kidney Disease Education Program (NKDEP) does not endorse the use of the MDRD equation for patients that are not between the ages of 18 and 70, are , have extremes of body size, muscle mass, or nutritional status, or are non- or non-. According to the National Kidney Foundation, irrespective of diagnosis, the stage of the disease is based on the level of kidney function: Stage Description GFR(mL/min/1.73 m(2)) 1 Kidney damage with normal or decreased GFR 90 2 Kidney damage with mild decrease in GFR 60-89 3 Moderate decrease in GFR 30-59 4 Severe decrease in GFR 15-29 5 Kidney failure <15 (or dialysis) 27 Acute inflammation: >10.00 28 [facility] Severe Sepsis and Septic Shock Management Bundle Measure requires all lactic acids initially measuring >2.0 mmol/L be repeated. 29 SEE RESULT BELOW Name: RAND PARRISH : [address]: Candie Gomez MD Acct: [id number] Unit: [id number] AGE: 36 Location: [place] [address] Re12/24/16 Dis: 12/25/16 SEX: F Status: DIS Zaina SPEC: [id number] LD: 12/25/[address]: Zack Jones MD REQ: [id number] RECD: 12/25/16 STATUS: HAILY ESPINOZA DR: Dianne Garcia MD _ SOURCE: BLOOD,VENO SPDES: ORDERED: Blood Cult Procedure Result Reported Site Aerobic Culture Bottle Final 12/30/1632 ML No Growth Day 5 Anaerobic Culture Bottle Final 12/30/1632 ML No Growth Day 5 * ML - MAIN LAB (PSC1) . END OF REPORT * ML=Testing performed at Main Lab DEPARTMENT OF PATHOLOGY, [address] [place] [address] Andrea Blair M.D. Director [facility] # [id number] 30 SEE RESULT BELOW Name: RAND PARRISH : [address]: Hayden GRANADOS Acct: [id number] Unit: [id number] AGE: 36 Location: [place] [address] Re12/24/16 Dis: 12/25/16 SEX: F Status: DIS Zaina SPEC: [id number] LD: 12/24/16-1045 [facility] DR: Zack Jones MD REQ: [id number] RECD: 12/24/16 STATUS: HAILY ESPINOZA DR: Dianne Garcia MD _ SOURCE: URINE SPDESC: ORDERED: Urine Culture Procedure Result Reported Site Urine Culture Final 12/25/16- 1247 ML No Growth (<1,000 CFU/mL) * ML - MAIN LAB (PSC1) . END OF REPORT * ML=Testing performed at Main Lab DEPARTMENT OF PATHOLOGY, [address] [place] [address] Andrea Blair M.D. Director [facility] # [id number] 31 Please note: The following may produce a false positive D Dimer test: - Rheumatoid factor greater than 60 IU/ml - Plasma hemoglobin greater than 0.05 gm/dl - Bilirubin greater than 50 mg/dl - Lipids greater than 1000 mg/dl - FDP greater than 20 ug/ml 32 result sneha'bethanie and given to Dr Garcia in [facility]'s 33 NON-FASTING 34 1 sst 35 Negative <1:80 Borderline 1:80 Positive >1:80 36 3SST 37 Negative <36.0 Equivocal 36.0 - 43.9 Positive >43.9 38 Negative < 9.0 Equivocal 9.0 - 10.9 Positive >10.9 39 Negative <18.0 Equivocal 18.0 - 21.9 Positive >21.9 40 Negative <18.0 Equivocal 18.0 - 21.9 Positive >21.9 41 EBV Interpretation Chart Interpretation EBV-IgM EA(D)-IgG VCA-IgG EBNA-IgG EBV Seronegative - - - - Early Phase + - - - Acute Primary + +or- + - Infection Convalescence/Past - +or- + + Infection Reactivated +or- + + + Infection + Antibody Present - Antibody Absent 42 Negative <0.9 Equivocal 0.9 - 1.1 Positive >1.1 43 Negative <0.9 Equivocal 0.9 - 1.1 Positive >1.1 44 Negative <0.60 Equivocal 0.60 - 0.69 Positive >0.69 45 Negative <30.0 Equivocal 30.0 - 34.9 Positive >34.9 A positive result is generally indicative of acute infection, reactivation or persistent IgM production. 46 RESULTS VERIFIED BY REPEAT ANALYSIS 47 Effective September 03, 2014 at 12:00pm there is an updated reference range. 48 Please note: The following may produce a false positive D Dimer test: - Rheumatoid factor greater than 60 IU/ml - Plasma hemoglobin greater than 0.05 gm/dl - Bilirubin greater than 50 mg/dl - Lipids greater than 1000 mg/dl - FDP greater than 20 ug/ml 49 Because ethnic data is not always readily available, this report includes an eGFR for both -Americans and non- Americans. The National Kidney Disease Education Program (NKDEP) does not endorse the use of the MDRD equation for patients that are not between the ages of 18 and 70, are , have extremes of body size, muscle mass, or nutritional status, or are non- or non-. According to the National Kidney Foundation, irrespective of diagnosis, the stage of the disease is based on the level of kidney function: Stage Description GFR(mL/min/1.73 m(2)) 1 Kidney damage with normal or decreased GFR 90 2 Kidney damage with mild decrease in GFR 60-89 3 Moderate decrease in GFR 30-59 4 Severe decrease in GFR 15-29 5 Kidney failure <15 (or dialysis) 50 Reference Range and Interpretation: TnI (ng/mL) Interpretation Less Than 0.03 ng/mL Not supportive of diagnosis of CO 0.03 - 0.50 ng/mL Indeterminate: suggest serial studies if clinically indicated. Greater than 0.5 ng/mL Consistent with diagnosis of CO 51 Acute inflammation: >10.00 52 consistent w/ previous results 53 consistent w/ previous results 54 Enterococcus faecalis - (Group D) 20,000 col/ml URINE CULTURE organism 1 Enterococcus faecalis - (Group D) 20,000 col/ml Gentamicin 500 SYN-S Susceptible Nitrofurantoin 32 Susceptible Penicillin-G 4 Susceptible Streptomycin 2000 SYN-S Susceptible Vancomycin 2 Susceptible 55 Vitamin D deficiency has been defined by the [place] of Medicine and an Endocrine Society practice guideline as a level of serum 25-OH vitamin D less than 20 ng/mL (1,2). The Endocrine Society went on to further define vitamin D insufficiency as a level between 21 and 29 ng/mL (2). 1. IOM ([place] of Medicine). 2010. Dietary reference intakes for calcium and D. [place]: The National AcademItalia Online Press. 2. Kade Vigil, Maciej WILKINSON, et al. Evaluation, treatment, and prevention of vitamin D deficiency: an Endocrine Society clinical practice guideline. JCEM. 2010; 96(7):1911-30. 56 Vitamin D deficiency has been defined by the [place] of [employer] and an Endocrine Society practice guideline as a level of serum 25-OH vitamin D less than 20 ng/mL (1,2). The Endocrine Society went on to further define vitamin D insufficiency as a level between 21 and 29 ng/mL (2). 1. IOM ([place] of Medicine). 2010. Dietary reference intakes for calcium and D. [place]: The National AcademItalia Online Press. 2. Kade Vigil, Maciej WILKINSON, et al. Evaluation, treatment, and prevention of vitamin D deficiency: an Endocrine Society clinical practice guideline. JCEM. 2010; 96(7):1911-30. 57 result sneha'd 58 Recent studies consider the lower limit of 32.0 ng/mL to be a threshold for optimal health. Chin CREWS. J Nutr. 2004;135(2):317-22. Procedures Date CPT Code Description Status 12/24/2016 29845 Pulse Oximetry Completed 12/13/2016 95521 Pulse Oximetry Completed 10/19/2014 17960 Pulse Oximetry Completed 10/05/2014 39564 Farhat flow vital capacity, total (seperate procedure) Completed 09/20/2014 71498 Pulse Oximetry Completed 09/20/2014 55615 Nebulizer Treatment Completed 10/09/2010 82903 Pulse Oximetry Completed Encounters Type Date Location Provider CPT E/M Dx Office Visit 06/12/2017 4:20p [facility] Dianne Garcia M.D. 11371 I10 J45.20 E66.9 E03.9 F41.9 B35.1 K21.9 Office Visit 04/09/2017 11:00a [facility] Dianne Garcia M.D. 09876 Z00.01 J45.20 E66.9 F41.9 E03.9 N94.6 M25.549 R03.0 L03.115 Office Visit 02/06/2017 3:45p [facility] [place] [address] R21 H10.89 Office Visit 12/28/2016 3:20p [facility] Dianne Garcia M.D. 15476 R06.2 R06.02 Office Visit 12/24/2016 9:15a [facility] Ciara HilBryson cassidy-C 69140 R05 R06.02 Office Visit 12/21/2016 4:00p [facility] Dianne Garcia M.D. 44959 R21 R06.2 Office Visit 12/13/2016 3:45p [facility] Office Hodan Gibson [facility] 71075 R06.2 R06.02 R06.00 R10.13 E66.3 R06.83 Office Visit 08/23/2016 2:00p [facility] Emy Sternrer, [facility] 21558 R53.83 R10.811 Office Visit 01/27/2016 10:15a [facility] Hodan Arthur [facility] 29669 M25.552 M25.562 M25.572 R32 N94.1 E66.3 E03.8 Z00.01 Office Visit 11/18/2015 9:00a [facility] CHARLIE LundP 51029 L04.9 R51 Office Visit 01/24/2015 8:40a [facility] Dianne Garcia M.D. 35162 V70.0 244.8 281.9 272.2 278.00 719.40 Office Visit 12/06/2014 8:00a [facility] Dianne Garcia M.D. 60530 493.92 300.00 244.8 281.9 V77.91 Office Visit 10/19/2014 3:10p [facility] Office Dianne Garcia M.D. 76555 493.92 300.00 Office Visit 10/05/2014 1:40p [facility] Office Tanner Franco M.D. 74312 466.0 Office Visit 09/20/2014 3:45p [facility] Office Hdoan GibsonKRISTEN [address]1076 786.05 466.0 493.92 Office Visit 07/07/2014 9:10a [facility] Dianne Garcia M.D. 69681 719.46 719.41 Office Visit 01/15/2014 1:40p [facility] Office Enrrique Guerin M.D. 94843 V70.0 244.8 599.72 Office Visit 06/16/2013 10:40a [facility] Izaiah Culver M.D. 08206 780.2 719.46 Office Visit 05/26/2013 3:00p [facility] Office Izaiah Culver M.D. 75121 780.2 784.0 780.79 244.8 281.9 786.05 Office Visit 01/07/2013 2:00p [facility] Office Izaiah Culver M.D. 89359 V70.0 V77.91 244.8 278.02 719.46 281.9 389.9 709.9 791.7 Office Visit 08/14/2012 1:15p [facility] Office KRISTEN Ambriz 57208 246.9 Office Visit 02/14/2012 4:20p Main Office Renee Downing M.D. 60246 796.2 246.9 389.11 Office Visit 01/21/2012 8:40a [facility] Office Renee Downing M.D. 77762 246.9 278.02 796.2 281.9 268.9 719.46 Office Visit 11/21/2011 9:00a Main Office Renee Downing M.D. 97837 V70.0 246.9 268.9 278.02 692.9 796.2 782.0 V65.49 389.9 V06.5 599.72 626.0 Office Visit 09/03/2011 3:20p [facility] Office Renee Downing M.D. 20596 461.8 796.2 Office Visit 10/09/2010 1:15p Main Office Emy Welch [facility] 13608 465.9 Office Visit 09/13/2010 3:00p [facility] Office Renee Downing M.D. 92040 V70.0 246.9 268.9 799.81 448.1 Plan of Care Future Appointment(s):01/14/2018 4:30 pm - Dianne Garcia M.D. at [facility] Hzenun3209/10/2017 - Dianne Garcia M.D.I10 Essential (primary) hypertensionNew Labs:CCS-Comp Metabolic (Fma) FemalCBC Electronic (Fma)Comments:The patient will continue to monitor blood pressure and let me know the blood pressure results if there are readings persistently above 140/80. Goal blood pressure is less than 140/80. Recommend low salt/cardiac diet and routine exercise.Follow up :4 [id number] Hypothyroidism, unspecifiedNew Labs:TSH (Fma/[facility])Free T4 (Fma/[facility])Comments:check labs, stable on ebhnzoycexV52.3 Tinea pedisComments: clotrimazole , saw Dr [id number] Right upper quadrant abdominal tendernessComments:consider GI vs HIDA scan, had normal US last yearAllNew Medication:Clotrimazole 2 %Comments:~B_~U_Medication Management~b_~u_ Patient Understands medications she's taking? Yes No Are there Barriers to Adherence? Yes No Has the patient been asked about herbal supplements and therapies, and OTC meds? Yes No
[2017-09-18 16:38] VITALS: BP 139/90
--- NOTE | 2017-09-18 16:41 | UC ---
Abdominal Pain Female HPI - HPI Summary HPI Summary: 37 yo female with the onset of adb pain while having a bowel movement about an hour ago Pain is poorly localized and feels band like across abd no n/v/d no f/c no UTI symptoms pain 5/5 except a brief 2 minute episode of 8/10 epigastric pain for over a yr she has had RUQ abd pain which has been episodic had a (-) RUQ u/s about a year ago - History of Current Complaint Chief Complaint: UCAbdominalPain Stated Complaint: ABDOMINAL PAIN X 1 HR Time Seen by Provider: 09/18/17 16:36 Hx Obtained From: Patient Hx Last Menstrual Period: 09/04/17 Onset/Duration: Sudden Onset, Lasting Minutes Timing: Constant Severity Initially: Moderate Severity Currently: Moderate Pain Intensity: 5 Pain Scale Used: 0-10 Numeric Location: Diffuse - band like Radiates: No Character: Other - pressure Aggravating Factor(s): Nothing Alleviating Factor(s): Nothing Associated Signs and Symptoms: Negative: Diaphoresis, Fever, Cough, Chest Pain, Dizzy, Back Pain, Constipation, Blood in Stool, Urinary Symptoms, Decreased Appetite, Vaginal Bleeding, Vaginal Discharge, Nausea, Vomiting, Diarrhea Allergies/Adverse Reactions: Allergies Allergy/AdvReac Type Severity Reaction Status Date / Time seasonal, cats Allergy Congestion Uncoded 09/18/17 16:26 Home Medications: Home Medications Multivitamin [Multivitamins] 1 cap PO DAILY 09/18/17 [History Confirmed 09/18/17 ] PMH/Surg Hx/FS Hx/Imm Hx Previously Healthy: Yes Endocrine History: Hypothyroidism Cardiovascular History: Hypertension Respiratory History: Asthma - Surgical History Surgical History: None - Family History Known Family History: Positive: Cardiac Disease - Father had NC at 40 y/o Negative: Hypertension, Diabetes - Social History Alcohol Use: Occasionally Substance Use Type: None Smoking Status (MU): Never Smoked Tobacco Have You Smoked in the Last Year: No - Immunization History Most Recent Influenza Vaccination: 2017 Most Recent Tetanus Shot: Within past 5 years Most Recent Pneumonia Vaccination: Never Review of Systems Constitutional: Negative Skin: Negative Eyes: Negative ENT: Negative Respiratory: Negative Cardiovascular: Negative Gastrointestinal: Abdominal Pain Genitourinary: Negative Motor: Negative Neurovascular: Negative Musculoskeletal: Negative Neurological: Negative Psychological: Negative Is Patient Immunocompromised?: No All Other Systems Reviewed And Are Negative: Yes Physical Exam Triage Information Reviewed: Yes Appearance: Well-Appearing, No Pain Distress, Well-Nourished Vital Signs: Initial Vital Signs Temp 98.9 F 09/18/17 16:29 Pulse 83 09/18/17 16:29 Resp 18 09/18/17 16:29 BP 139/90 09/18/17 16:29 Pulse Ox 99 09/18/17 16:29 Vital Signs Reviewed: Yes Eyes: Positive: Conjunctiva Clear ENT: Positive: Normal ENT inspection, Uvula midline. Negative: Nasal congestion , Nasal drainage, Tonsillar swelling, Tonsillar exudate, Trismus, Muffled voice Neck: Positive: Supple, Nontender, No Lymphadenopathy Respiratory: Positive: Lungs clear, Normal breath sounds, No respiratory distress, No accessory muscle use Cardiovascular: Positive: RRR, No Murmur Abdomen Description: Positive: Soft, Other: - tender epigastrium and RUQ. Negative: Nontender, CVA Tenderness (R), CVA Tenderness (L), Distended, Guarding , Hepatomegaly, Splenomegaly Bowel Sounds: Positive: Present Musculoskeletal: Positive: ROM Intact, No Edema Neurological: Positive: Alert Psychological Exam: Normal Skin Exam: Normal Diagnostics - Laboratory Diagnostic Studies Completed/Ordered: UA (-), uHCG (-) - Radiology No standard instances Xray Interpretation: No Acute Changes Radiology Interpretation Completed By: Radiologist Re-Evaluation - Re-Evaluation First Eval Re-Evaluation Time: 17:42 Change: Unchanged - pain still 4-5/10, tender epigastrium and less so RLQ Abd Pain Female Course/Dx - Course Course Of Treatment: I explained to the patient that I didn't like the fact she had the acute onset of pain while having a BM. I also explained that for a minute or two she had intense epigastric pain. We discussed here going to the ER for a higher level of care and she decline. She states she will seek care for new or worsening symptoms. I advised she get rechecked in AM if not completely better. - Differential Dx/Diagnosis Provider Diagnoses: abdominal pain of uncertain cause Discharge - Discharge Plan Condition: Stable Disposition: HOME Patient Education Materials: Acute Abdominal Pain (DC) Referrals: Dianne Garcia MD [Primary Care Provider] - 1 Day (if not better) Additional Instructions: TO ER for increased pain fever vomiting if not better by tomorrow AM As discussed we can not do stat lab work here and workup of abdominal pain often needs imaging that we can't do here You had a brief episode of severe pain while here and certainly if that recurs I think you need to go to the ER If you pain goes away soon you I suggest you stick to a bland diet while out of town and see your provider when you return
--- NOTE | 2017-09-18 17:38 | RAD ---
INDICATION: Sudden onset of abdominal pain. COMPARISON: There are no prior studies available for comparison. TECHNIQUE: Supine and upright views of the abdomen were obtained. FINDINGS: The small bowel and colon appear nondistended. No free intraperitoneal air is seen. IMPRESSION: NO EVIDENCE FOR ACUTE FINDING.
== END 2017-09-18 17:59 | disposition home or self-care (01) ==
LOC: UCCORT 16:17
DX: R10.9 Unspecified abdominal pain (principal); Z32.02 Encounter for pregnancy test, result negative
CPT/HCPCS: 74019; 81003; 84702; 99211; G0463

== ENCOUNTER 2017-11-12 21:02 | Emergency (ER) | payer BC ==
[2017-11-12 21:16] VITALS: BP 129/81
--- NOTE | 2017-11-12 21:18 | UC ---
Skin Complaint HPI - HPI Summary HPI Summary: 37 yo female presents with ?insect bite to left upper arm. She tells me that she does not recall getting bitten by anything, but 3 days ago felt a bump on her left triceps area. Looked in the mirror and noticed some redness and swelling. Yesterday she noticed that the redness spread and that a blister formed in the central most area. Today the blister popped and the redness spread even further - also has some warmth and pain to the area. Denies drainage or bleeding. - History of Current Complaint Chief Complaint: UCSkin Stated Complaint: SKIN COMPLAINT, HEADACHE Hx Obtained From: Patient Hx Last Menstrual Period: 10/20/17 Onset/Duration: Gradual Onset Onset Severity: Mild Current Severity: Moderate Pain Intensity: 4 Pain Scale Used: 0-10 Numeric - Allergy/Home Medications Allergies/Adverse Reactions: Allergies Allergy/AdvReac Type Severity Reaction Status Date / Time seasonal, cats Allergy Congestion Uncoded 11/12/17 21:16 Review of Systems Constitutional: Negative Skin: Rash Respiratory: Negative Cardiovascular: Negative Gastrointestinal: Negative Neurovascular: Negative Neurological: Negative Psychological: Negative All Other Systems Reviewed And Are Negative: Yes PMH/Surg Hx/FS Hx/Imm Hx Previously Healthy: Yes Endocrine History: Hypothyroidism Cardiovascular History: Hypertension Respiratory History: Asthma GI/ History: Gastroesophageal Reflux - Surgical History Surgical History: None - Family History Known Family History: Positive: Cardiac Disease - Father had [place] at 40 y/o Negative: Hypertension, Diabetes - Social History Occupation: Employed Full-time Lives: With Family Alcohol Use: Occasionally Substance Use Type: None Smoking Status (MU): Never Smoked Tobacco Have You Smoked in the Last Year: No - Immunization History Most Recent Influenza Vaccination: 2017 Most Recent Tetanus Shot: Within past 5 years Most Recent Pneumonia Vaccination: Never Physical Exam - Summary Physical Exam Summary: GENERAL: NAD. WDWN. No pain distress. SKIN: Left triceps area: 12.0cm area of mild erythema, warmth, and TTP. Central superficial skin loss 5mm in diameter resembling recent broken blister. No streaking, bleeding, or drainage. NECK: Supple. Nontender. No lymphadenopathy. CHEST: No accessory muscle use. Breathing comfortably and in no distress. CV: RRR. Without m/r/g. NEURO: Alert. CN II-XII grossly intact. PSYCH: Age appropriate behavior. Triage Information Reviewed: Yes Vital Signs: Initial Vital Signs Temp 98.4 F 11/12/17 21:11 Pulse 95 11/12/17 21:11 Resp 16 11/12/17 21:11 BP 129/81 11/12/17 21:11 Pulse Ox 100 11/12/17 21:11 Course/Dx - Course Course Of Treatment: Cellulitis s/p insect or arthropod bite/sting. Rx for augmentin. Area was outlined with marking pen and advised to seek f/u if redness extends beyond this area. - Diagnoses Provider Diagnoses: Cellulitis left arm Discharge - Sign-Out/Discharge Documenting (check all that apply): Discharge/Admit/Transfer - Discharge Plan Condition: Stable Disposition: HOME Prescriptions: Amoxicillin/Clavulanate TAB* [Augmentin TAB 875*] 875 mg PO BID #14 tab Patient Education Materials: Cellulitis (ED) Referrals: Dianne Garcia MD [Primary Care Provider] - Additional Instructions: If you develop a fever, shortness of breath, chest pain, new or worsening symptoms - please call your PCP or go to the ED. - Billing Disposition and Condition Condition: STABLE Disposition: HOME
[2017-11-12] MEDS ORDERED: Amoxicillin/Clavulanate TAB* 875 MG PO ONE (21:25)
== END 2017-11-12 21:31 | disposition home or self-care (01) ==
LOC: UCCORT 21:02
DX: L03.114 Cellulitis of left upper limb (principal)
CPT/HCPCS: 99212; A9270-GY; G0463

== ENCOUNTER 2017-12-06 20:29 | Emergency (ER) | payer BC ==
--- OUTSIDE RECORDS SUMMARY | 2017-12-06 20:52 | XMS REPORT ---
:1980 External Reference #:[id number] Author Organization [facility] Address [address] [place] [address] Phone [phone] Care Team Providers Name Role Phone Dianne Garcia M.D. Care Team Information Shaper Set Up Operator Unavailable Dianne Garcia M.D. Primary Care Physician Unavailable Payers Type Date Identification Numbers Payment Provider Subscriber Commercial Effective: Policy Number: BC/BS Of JANKI Estrella 2012 [id number] [employer] Group Name: [facility] Enhanced Benefits [address] [address] PayID: [id number] [place] [address] Problems Date Description Provider Status Onset: 11/21/2011 Vitamin D deficiency Renee Downing M.D. 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 Vitamin/Minerals Palomo Full Chad Adan Levothyroxine 09/04 Active Tablets 25mcg 90tabs Take One E07.9 Dianne Tablet By Blane Garcia M.DCar Every Day Levocetirizine Active Tablets 5mg 1 by Unknown Dihydrochloride /0000 mouth every day Proair HFA Active Aerosol 108(90Bas 2 puffs Unknown /0000 e) every 4 mcg/Act hours as needed Amoxicillin/Clav Active Tablets 875-125mg 1 twice a Unknown ulanate / day w/ Potassium food. Hydrochlorothiaz 06/19 Hx Tablets 12.5mg 30tabs Take One Tablet By Faber, - Mouth M.D. 09/08 Every Hydrochlorothiaz 06/12 Hx Tablets 25mg 30tabs 1 by Dianne mouth Faber, - every day M.D. 06/19 Hydrochlorothiaz 04/25 Hx Tablets 12.5mg 30tabs 1 by Dianne mouth Faber, - every day M.D. 06/12 Doxycycline 04/09 Hx Tablets 150mg Dianne Hyclate Faber, - M.D. 04/09 Albuterol 12/28 Hx Nebulizer (5mg/ML) 40ml 1 unit R06.2 Dianne [facility] 0.5% every 6 , - hours as M.D. 04/08 needed Hydroxyzine HCL 12/21 Hx Tablets 25mg 60tabs 1 tab R21 three Faber, - times a M.D. 04/08 day as needed itch Omeprazole 12/13 Hx Capsules 20mg 90caps [address] blane Gibson, - twice VEGETABLE CANNER 04/08 daily-- pty stomach Physical Therapy 05/02 Hx evaluatio Hodan /2016 Rosie, - treatment VEGETABLE CANNER 08/23 pelvic 2017 floor dysfuncti on Prednisone 10/19 Hx Tablets 20mg 21tabs 3 tabs x 493.92 4 days, 2 Faber, - tab x 3 M.D. 12/06 days, tab x 3 days then stop Ambien 10/19 Hx Tablets 5mg 30tabs 1 tab by 300.00 mouth at Faber, - bedtime M.D. 11/17 as needed Physical Therapy 07/07 Hx evaluate 719.46 and treat Faber, - neck and M.D. 09/19 l shoulder pain and L knee pain Note - Exercise 08/18 Hx ok to Bliss A. exercise Palomo, - without M.D. 01/14 restricti on Penicillin V 01/16 Hx Tablets 500mg 21tabs one Bliss A. Potassium tablet po Palomo, - tid for 7 M.D. Levothyroxine 11/22 Hx Tablets 25mcg 90tabs 1 po qd 246.9 Renee M. [place] - M.D. 08/19 Lac-Hydrin 11/20 Hx Lotion 12% 400gm apply to 692.9 Renee M. feet at [facility], - hs M.D. 05/25 + Dha 11/20 Hx Misc 27-1& 90units 1 po qd V65.49 Renee M. 250mg (any [place], - formulary M.D. 01/07 alterati e vitamin w/ efas is fine) Fluticasone 09/03 Hx Suspension 50mcg/Act 16gm 2 sprays 461.8 Renee M. Propionate each [place] - nostril M.D. 11/20 daily Azithromycin 09/03 Hx Tablets 250mg 6tabs 2 po 461.8 Renee M. today and [place], - 1 po x 4 M.D. Augmentin 10/09 Hx Tablets 875-125mg 28tabs 1 po bid 465.9 with food Yuri, - x 14d VEGETABLE CANNER 09/03 Robitussin A-C 10/09 Hx 120ml 1-2 tsp 465.9 po q4h Yuri, - prn cough VEGETABLE CANNER 09/03 Symbicort 10/09 Hx Aerosol 80-4.5mcg sample 2 puff 465.9 /Act bid Yuri, - VEGETABLE CANNER 09/03 Vitamin D3 09/13 Hx 2000Unit 90units 1 po qd 268.9 Renee M. [place] - M.D. 05/25 Cryselle-28 Hx Tablets 0.3-30mg- 1pk 1 po qd Unknown /0000 mcg - 09/03 Proair HFA Hx Aerosol 108(90Bas 1Mdi 2 puffs Unknown /0000 e) mcg/ac every 4 - hours as 09/03 for cough Iron 00 Hx otc Unknown / - 05/25 Proair HFA 00/00 Hx Aerosol 108(90Bas 2 puffs Unknown /0000 e) every 4 - mcg/Act hours as 11/17 Prednisone 00 Hx Tablets 20mg 2 po qd Unknown /0000 for 3 - days 10/19 Advair Diskus Hx Aerosol 250-50mcg 1inhale 1 puff Hodan /0000 /Dose r twice a Arthur, - day VEGETABLE CANNER 12/06 Ferrous Sulfate Hx Tablets [address] 325(65Fe) 1 by Unknown /0000 mg mouth - every day 04/08 Medrol Hx Tablets 4mg dose-pack Unknown /0000 as - instructe 04/08 Doxycycline Hx Capsules 100mg 1 by Unknown Hyclate /0000 mouth - twice a Immunizations CPT Code Status Date Vaccine Lot # [id number] Given 11/21/2011 Tdap Tetanus, W Pertussis [id number] Vital Signs Date Vital Result Comment 11/16/2017 BP Systolic 130 mmHg BP Diastolic 92 mmHg Heart Rate 68 /min Body Temperature 98.7 F Respiratory Rate 16 /min Height 65.75 inches 5'5.75" Weight 248.00 lb BMI (Body Mass Index) 40.3 kg/m2 10/12/2017 BP Systolic 118 mmHg BP Diastolic 74 mmHg Heart Rate 72 /min Body Temperature 97.9 F Respiratory Rate 16 /min Height 65.75 inches 5'5.75" Weight 249.38 lb BMI (Body Mass Index) 40.6 kg/m2 09/10/2017 BP Systolic 124 mmHg BP Diastolic [...] Result H/L Range Note Laboratory test finding 09/18/2017 Poc , Urine Negative Negative 1 Poc Urinalysis 09/18/2017 Poc Glucose, Urine Negative Negative Poc Bilirubin, Urine Negative Negative Poc Ketone, Urine Negative Negative Poc Specific [place], Urine 1.015 1.010-1.030 Poc Blood, Urine Negative Negative Poc pH, Urine 6.0 5-9 Poc Protein, Urine Negative Negative Poc Urobilinogen, Urine 0.2 Negative Poc Nitrite, Urine Negative Negative Poc Leukocytes, Urine Negative Negative Poc Color, Urine Yellow Poc Clarity, Urine Clear 2 Laboratory test finding 04/25/2017 Troponin I 0.00 [...] finding 04/24/2017 Lactic Acid 0.7 mmol/L 0.5-2.0 3 Inr/Protime 04/24/2017 Inr 1.02 0.89-1.11 Comp Metabolic [...] Egfr Non- 78.0 >60 Egfr 100.3 >60 4 Laboratory test finding 04/24/2017 Troponin I 0.00 ng/mL <0.04 HCG < 0.60 mIU/mL 5 TSH (Thyroid Stim Horm) 2.28 mcIU/mL 0.34-5.60 Urinalysis Profile 04/10/2017 Urine Color Straw Urine Appearance Clear Urine Specific [place] 1.006 Low 1.010-1.030 Urine pH 6.0 5-9 Urine Urobilinogen Negative Negative Urine Ketones Negative Negative Urine Protein Negative Negative Urine Leukocytes Negative Negative Urine Blood 3+ Negative Urine Nitrite Negative Negative Urine Bilirubin Negative Negative Urine Glucose Negative Negative Urine White Blood Cell Trace(0-5/hpf) Absent Urine Red Blood Cell Trace(0-2/hpf) Absent Urine Bacteria Absent Absent Urine Squamous Epithelial Cell Present Absent CBC Auto Diff 04/10/2017 White Blood Count [...] 0-2 Nucleated Red Blood Cells % 0 Comp Metabolic Panel 04/10/2017 Sodium 136 mmol/L [...] Egfr Non- 79.1 >60 Egfr 101.8 >60 6 Lipid Profile (Trig/Chol/HDL) 04/10/2017 Triglycerides 60 mg/dL 7 Cholesterol 191 mg/dL 8 HDL Cholesterol 61.6 mg/dL 9 LDL Cholesterol 117 mg/dL 10 Laboratory test finding 04/10/2017 C Reactive Protein 13.14 mg/L High &lt ; 5.00 11 TSH (Thyroid Stim Horm) 1.90 mcIU/mL 0.34-5.60 Free T4 (Free Thyroxine) 0.95 ng/dL 0.61-1.12 Vitamin B12 524 pg/mL 180-914 12 Hemoglobin A1c (Glyco HGB) 5.7 % Less than 6.0 13 Rheumatoid Factor <15 IU/mL <15 14 Anti Nuclear Antibody 0.2 U 15 Buying Intern Pap Test Age-Based GL Cerv CA & STDS 04/09/2017 Age 30-65 16 Age 1004/09/2017 Age 30-65 16 Diagn See Comment: 16, 17 Adeq See Comment: 16, 18 [email or web address] See Comment: 16, 19 Perfor See Comment: 16, 20 Signed See Comment: 16, 21 Comm . 16 Note See Comment: 16, 22 Iglbp See Comment: 16, 23 HPV Aptima Negative Negative 16, 24 Laboratory test finding 04/09/2017 PDF [id number] SEE IMAGE 16 Arterial Blood Gas 12/24/2016 O2 Device nebulizer Fio2 8 Patient Temp ABG 98.9 PH Arterial 7.45 7.35-7.45 Pco2 Arterial 42 mmHg 35-45 Po2 Arterial 113 mmHg High 80-100 O2 Saturation Arterial 99.5 % High 95-98 Base Excess Arterial 4.7 High -2.0-2.0 25 Hco3 Arterial 28.6 mmol/L 19- Laboratory test 12/24/2016 D Dimer Quantitative < 200 ng/mL Less Than 26 finding 230 CBC Auto Diff 12/24/2016 White [...] finding 12/24/2016 B-Type Natriuretic Peptide 14 pg/mL 27 BNP Comp Metabolic Panel 12/24/2016 Sodium 136 [...] Egfr Non- 71.9 >60 Egfr 92.5 >60 28 Laboratory test finding 12/24/2016 Creatine Kinase(CK) 214 U/L 10-223 C Reactive Protein 22.41 mg/L High < 5.00 29 Troponin I 0.00 ng/mL <0.04 Lactic Acid 0.8 mmol/L 0.5-2.0 30 Urinalysis Profile 12/24/2016 Urine Color Straw Urine Appearance Clear Urine Specific [place] 1.006 Low 1.010-1.030 Urine pH 7.0 5-9 [...] finding 12/24/2016 Blood Culture SEE RESULT BELOW 31 Urine Culture And Sensitivities SEE RESULT BELOW 32 Laboratory test 12/18/2016 D Dimer Quantitative < 200 ng/mL Less Than 33 finding 230 CBC Auto Diff 12/18/2016 White Blood Count [...] 0-2 Nucleated Red Blood Cells % 0 Comprehensive Metabolic Prof 12/13/2016 Sodium 140 mEq/L 134-149 Potassium 4.3 mEq/L 3.6-5.5 Chloride 106 mEq/L 94-112 Carbon Dioxide 23 mEq/L 21-32 Glucose 118 mg/dL High 70-105 34 BUN 17 mg/dL 6-26 Creatinine 0.8 mg/dL [...] GFR >60 ml/min/1.73m^ >=60 Laboratory test finding 12/13/2016 TSH 0.55 mIU/L 0.50-6.00 Free T4 0.91 ng/dL 0.75-1.54 CBC Electronic (Fma) 12/13/2016 WBC 16.1 High 3.6-9.6 35 RBC 4.23 3.90-5.70 Hemoglobin (Fma/CMC/CTX) 12.2 g/dL 12.1 - 17.2 Hematocrit (Fma/CMC/CTX) 36.5 % 36.1 - 50.3 Platelets 277 10^3/ul 150-400 Lymph% 11.5 % Low 17.0-48.0 Mixed% 3.4 Neutrophils % 85.1 Mean Corpuscular Vol 86 82.2-97.4 Mean Corpuscular Hemoglobin 28.9 27.6-33.3 Mean Corpuscular Hemo Concen 33.4 32.0-36.0 RDW 13.8 High 11.6-13.7 Mean Platelet Volume 7.3 5.5-11.0 Laboratory test finding 12/13/2016 Sedimentation Rate 23 mm Iron And Tibc 08/23/2016 Iron Bind.Cap.(Tibc) 353 [...] 5.9 x10^3/UL 1.5-7.2 Lymph# 2.4 x10^3/UL 0.7-4.9 [facility]# 0.2 x10^3/UL 0.1-0.9 Gran % 67.8 % 42.2-75.2 Lymph % 28.8 % 20.5-51.1 [facility]% 3.4 % 1.7-9.3 Laboratory test finding 08/23/2016 [...] 700 pg/mL 230-1050 Ua - Non Micro (Fma) 01/27/2016 Appearance CLEAR Color YELLOW Glucose, Urine (Fma/CMC/CTX) NEG Bilirubin NEG Ketones NEG SP Grav 1.010 Blood NEG PH 7.0 Protein NEG Urobil 0.2 Nitrite NEG Leukocytes (Fma/CMC/Centrex) NEG Comprehensive Metabolic Prof 01/27/2016 Sodium 137 [...] Free T4 1.07 ng/dL 0.75-1.54 Laboratory test finding 01/27/2016 Antinuclear Antibodies, Negative 36 , 37 Ifa Rheumatoid Arthritis 01/27/2016 Ra Latex Turbid. 8.1 IU/mL 0.0-13.9 36 Factor ([facility]) Laboratory test finding 11/18/2015 Monospot (Fma/Centrex) NEGATIVE CBC Manual Diff-[facility] 11/18/2015 WBC 7.2 3.6-9.6 RBC 4.22 3.90-5.70 Hemoglobin (Fma/CMC/CTX) 12.3 g/dL 12.1 - 17.2 Hematocrit (Fma/CMC/CTX) 37.0 % 36.1 - 50.3 Mean Corpuscular Vol 88 82.2-97.4 Mean Corpuscular Hemoglobin 29.3 27.6-33.3 Mean Corpuscular Hemo Concen 33.4 32.0-36.0 Platelets 247 10^3/ul 150-400 RDW 13.7 11.6-13.7 Mean Platelet Volume 7.2 5.5-11.0 Neutrophil 64 Band 1 Lymphocytes 31 Monocyte 3 Eosinophils 1 Anisocytosis (Fma/CMC/Centrex) slight Hypochrom slight Z#Comment plts normal Comprehensive Metabolic Prof 11/18/2015 Sodium 142 mEq/L [...] GFR >60 ml/min/1.73m^ >=60 Laboratory test finding 11/18/2015 TSH 2.47 mIU/L 0.50-6.00 Free T4 0.97 ng/dL 0.75-1.54 CMV Igg/Igm 11/18/2015 Cytomegalovirus (CMV) Ab, IgG 4.90 U/mL High 0.00- 0.59 38, 39 Cytomegalovirus (CMV) Ab, IgM <30.0 AU/mL 0.0-29.9 38, 40 HIV 1/O/2 Ag/AB 11/18/2015 HIV Screen 4th Non Reactive Non Reactive 38 Prelim W/[place] RFX Generation wRfx Sup Laboratory test 11/18/2015 RPR Non Reactive Non Reactive 38 finding Parvovirus B19, IgG 0.2 index 0.0-0.8 38, 41 Parvovirus B19, IgM 0.1 index 0.0-0.8 38, 42 Ebv Acute Infection 11/18/2015 Ebv Ab Vca, IgM <36.0 U/mL 0.0-35.9 38 , 43 Antibodies Profile Ebv Early Antigen Ab, IgG <9.0 U/mL 0.0-8.9 38, 44 Ebv Ab Vca, IgG 150.0 U/mL High 0.0-17.9 38, 45 Ebv Nuclear Antigen Ab, IgG 250.0 U/mL High 0.0-17.9 38, 46 Interpretation: See Comment: 38, 47 Laboratory test finding 11/18/2015 LDH 164 IU/L 119-226 38 Laboratory test finding 01/18/2015 TSH 1.69 mIU/L [...] 5.2 x10^3/UL 1.5-7.2 Lymph# 2.4 x10^3/UL 0.7-4.9 [facility]# 0.3 x10^3/UL 0.1-0.9 Gran % 64.1 % 42.2-75.2 Lymph % 31.0 % 20.5-51.1 [facility]% 4.9 % 1.7-9.3 Laboratory test finding 01/18/2015 Serum Iron 49 g/dL Low 60-150 48 Lipid Profile 01/18/2015 Cholesterol 222 mg/dL High [...] 09/20/2014 Activated Partial 31.4 seconds 26.0- 36.3 49 Thrombo Time D Dimer Quantitative 204 ng/mL Less Than 230 50 Comp Metabolic Panel 09/20/2014 Sodium 131 mmol/L [...] Egfr Non- 88.8 >60 Egfr 114.2 >60 51 Laboratory test finding 09/20/2014 Magnesium 2.0 mg/dL 1.9-2.7 Troponin I 0.00 ng/mL <0.03 52 TSH (Thyroid Stimulating Horm) 1.18 IU/mL 0.34-5.60 C Reactive Protein 31.22 mg/L High < 5.00 53 Complete Blood Count 01/18/2014 WBC 7.2 x10^3/UL 3.6-9.6 RBC 3.95 x10^6/UL 3.90-5.70 HGB 11.8 g/dL Low 12.1-17.2 54 HCT 34 % Low 36-50 55 MCV 87.0 fL 82.2-97.4 MCH 29.9 pg 27.6-33.3 MCHC 34.5 g/dL 33.0-35.5 RDW 11.7 % 11.6-13.7 PLT 214 x10^3/UL 150-400 MPV 7.4 fL 7.4-10.4 Gran # 4.9 x10^3/UL 1.5-7.2 Lymph# 2.0 x10^3/UL 0.7-4.9 [facility]# 0.3 x10^3/UL 0.1-0.9 Gran % 65.9 % 42.2-75.2 Lymph % 29.1 % 20.5-51.1 [facility]% 5.0 % 1.7-9.3 Laboratory test finding 01/18/2014 TSH 1.72 mIU/L 0.50-6.00 Free T4 0.93 ng/dL 0.75-1.54 Lipid Profile 01/18/2014 Cholesterol 190 mg/dL 120-200 Triglycerides 96 mg/dL 30-200 HDL Cholesterol 50 mg/dL 30-85 LDL (Calculated) 121 CALC 0-129 VLDL Cholesterol 19 mg/dL 0-50 HDL Risk Factor 3.8 CALC 0.0-4.4 Comprehensive Metabolic Prof 01/18/2014 Sodium 138 mEq/L [...] U/L 5-34 Total Bilirubin 0.4 mg/dL 0.2-1.3 Ua - Micro (Fma) 01/15/2014 Appearance clear Color yellow Glucose neg Bilirubin neg Ketones neg SP Grav 1.010 Blood trace-lysed PH 6.5 Protein neg Urobil 0.2 Nitrite neg Leukocytes (Fma/CMC/Centrex) neg Hyaline - /Lpf Granular - /Lpf WBC (Fma,Centrex) 1-2 RBC 1-2 Mucus - /Lpf Epith occass /Lpf Bacteria - /Hpf Amorphous - /Lpf Crystals, Fluid (Fma/CMC/CTX) - Z#Comments - Laboratory test finding 05/26/2013 [...] BUN/Creat Ratio 19.8 Calc 8.0-36.0 CBC Electronic (a) 05/26/2013 WBC 9.5 3.6-9.6 RBC 4.04 3.90-5.70 Hemoglobin (Fma/CMC/CTX) 11.5 g/dL Low 12.1 - 17.2 Hematocrit (Fma/CMC/CTX) 35.2 % Low 36.1 - 50.3 Platelets [...] finding 01/07/2013 Urine Culture Enterococcus anabela <SEE 56 NOTE> Ua - Micro ([facility]) 01/07/2013 Appearance CLEAR Color YELLOW Glucose NEG Bilirubin NEG Ketones NEG SP Grav 1.015 Blood TRACE-INTACT PH 6.5 Protein NEG Urobil 0.2 Nitrite NEG Leukocytes (Fma/CMC/Centrex) LARGE Hyaline - /Lpf Granular - /Lpf WBC (a,Centrex) 20-30 RBC 1-2 Mucus - /Lpf Epith OCC /Lpf Bacteria 2+ /Hpf Amorphous - /Lpf Crystals, Fluid (Fma/CMC/CTX) - Z#Comments - Laboratory test finding 08/14/2012 Free T3 2.89 pg/mL 2.00-4.90 Free T4 1.10 ng/dL 0.75-1.54 TSH 0.89 mIU/L 0.50-6.00 Laboratory test finding 02/12/2012 Free T4 0.93 ng/dL 0.75-1.54 TSH 1.78 mIU/L 0.50-6.00 Free T3 2.35 pg/mL 2.00-4.90 Laboratory test 02/12/2012 Vitamin D, 25 Oh 27.4 ng/mL Low 30.0-100.0 57 finding Laboratory test 02/12/2012 Hematocrit 37.4 % 36.1 - 50.3 finding (Fma/CMC/CTX) Ua - Micro (a) 11/21/2011 Appearance CLOUDY Color YELLOW Glucose, Urine (Fma/CMC/CTX) NEG Bilirubin NEG Ketones NEG SP Grav 1.025 Blood TRACE-INTACT PH 5.5 Protein NEG Urobil 0.2 Nitrite NEG Leukocytes (Fma/CMC/Centrex) NEG Hyaline - /Lpf Granular - /Lpf WBC (Fma,Centrex) - RBC 0-1 Mucus (Fma/CBC/Centrex) - /Lpf Epith - /Lpf Bacteria - /Hpf Amorphous (Fma/CMC/Centrex) - /Lpf Crystals, Fluid (Fma/CMC/CTX) - Z#Comments - CBC Electronic ([facility]) 11/21/2011 WBC 7.7 3.6-9.6 RBC 4.09 3.90-5.70 Hemoglobin (Fma/CMC/CTX) 11.6 g/dL Low 12.1 - 17.2 Hematocrit (Fma/CMC/CTX) 35.3 % Low 36.1 - 50.3 Platelets 225 10^3/ul 150-400 Lymph% 28.4 20.5-51.1 Mixed% 3.2 Neutrophils % 68.4 Mean Corpuscular Vol 86 82.2-97.4 Mean Corpuscular Hemoglobin 28.3 27.6-33.3 Mean Corpuscular Hemo Concen 32.8 32.0-36.0 RDW 11.8 11.6-13.7 Mean Platelet Volume 7.7 6.5-11.0 Urine ([facility]) 11/21/2011 SP Grav 1.025 Urine, (Fma/CMC/CTX) NEGATIVE Basic Metabolic Profile 11/21/2011 BUN 12 mg/dL 6-26 Calcium 9.6 mg/dL 8.6-10.2 Chloride 103 mEq/L 94-112 Creatinine 0.7 mg/dL 0.6-1.4 Carbon Dioxide 25 mEq/L 21-32 Glucose 102 mg/dL 70-105 Sodium 143 mEq/L 134-149 Potassium 5.0 mEq/L 3.6-5.5 BUN/Creat Ratio 15.9 Calc 8.0-36.0 Laboratory test finding 11/21/2011 TSH 2.17 mIU/L 0.50-6.00 Free T4 0.72 ng/dL Low 0.75-1.54 58 Free T3 2.12 pg/mL 2.00-4.90 Laboratory test finding 11/21/2011 Vitamin D, 25 Oh 28.2 ng/mL Low 30.0- 100.0 59 Laboratory test finding 09/13/2010 TSH 2.08 mIU/L 0.50-6.00 Free T4 1.05 ng/dL 0.75-1.54 Laboratory test finding 09/13/2010 Vitamin D, 25 Oh 28.2 ng/mL Low 32.0- 100.0 60 Laboratory test finding 10/31/2009 [facility] [place] [facility] Test B12,FOLATE 1 Manager Desktop: [id number] If is still suspected, please repeat test after 48 to 72 hours. 2 Manager Desktop: [id number] 3 [facility] Severe Sepsis and Septic Shock Management Bundle Measure requires all lactic acids initially measuring >2.0 mmol/L be repeated. 4 Because ethnic data is not always readily [...] 15-29 5 Kidney failure <15 (or dialysis) 5 <5.0 Negative 5.0 - 25.0 Indeterminate (Repeat testing recommended after 72 hours) >25.0 Positive Perimenopausal women can display HCG levels of up to 20 mIU/mL 6 Because ethnic data is not always readily [...] 15-29 5 Kidney failure <15 (or dialysis) 7 Desirable <150 Borderline high 150-199 High 200-499 Very High >500 8 Desirable <200 Borderline high 200-239 High >239 9 Low <40 Desirable: 40-60 High: >60 10 Desirable: <100 mg/dL Near Optimal: 100-129 mg/dL Borderline High: 130-159 mg/dL High: 160-189 mg/dL Very High: >189 mg/dL 11 Acute inflammation: >10.00 12 Normal Range 180 to 914 Indeterminate Range 145 to 180 Deficient Range <145 13 Therapeutic target for the treatment of diabetes Mellitus patients is <7% HBA1C, and in selective patients <6.0%.Please refer to [place] [employer] Diabetic care guidelines for further information. 14 Test Performed by: [address] [id number] 15 REFERENCE VALUE <=1.0 (Negative) Test Performed by: [address] [id number] 16 Source.............[employer] Dates / Results.. No. of containers..01 ThinPrep Vial [id number] 17 NEGATIVE FOR INTRAEPITHELIAL LESION AND MALIGNANCY. REACTIVE CELLULAR CHANGES AND/OR REPAIR ARE PRESENT. 18 Satisfactory for evaluation. Endocervical and/or squamous metaplastic cells (endocervical component) are present. 19 Z12.4 20 Brenna Vale, Issuer (ASCP) 21 Denise Urbina MD, Pathologist 22 The Pap smear is a screening test designed to aid in the detection of premalignant and malignant conditions of the uterine cervix. It is not a diagnostic procedure and should not be used as the sole means of detecting cervical cancer. Both false-positive and false-negative reports do occur. 23 This liquid based ThinPrep(R) pap test was screened with the use of an image guided system. 24 This test detects fourteen high-risk HPV types (16/18/31/33/35/39/45/ 51/52/56/58/59/66/68) without differentiation. 25 Reference ranges based on room air. 26 Please note: The following may produce a false positive D Dimer test: - Rheumatoid factor greater than 60 IU/ml - Plasma hemoglobin greater than 0.05 gm/dl - Bilirubin greater than 50 mg/dl - Lipids greater than 1000 mg/dl - FDP greater than 20 ug/ml 27 >100 to <200 pg/mL: likely compensated congestive heart failure (CHF) 200 to 400 pg/mL: likely moderate CHF >400 pg/mL: likely moderate to severe CHF 28 Because ethnic data is not always readily [...] 15-29 5 Kidney failure <15 (or dialysis) 29 Acute inflammation: >10.00 30 [facility] Severe Sepsis and Septic Shock Management Bundle Measure requires all lactic acids initially measuring >2.0 mmol/L be repeated. 31 SEE RESULT BELOW Name: RAND PARRISH : [address]: Candie Gomez MD Acct: [id number] Unit: [id number] AGE: 36 Location: [address] Re12/24/16 Dis: 12/25/16 SEX: F Status: DIS Zaina SPEC: [id number] LD: 12/25/16-[address] [facility] [address]: Zack Jones MD REQ: [id number] RECD: 12/25/16 STATUS: HAILY ESPINOZA DR: Dianne Garcia MD _ SOURCE: BLOOD,VENO SPDESC: ORDERED: Blood Cult Procedure Result Reported Site Aerobic Culture Bottle Final 12/30/16- 0033 ML No Growth Day 5 Anaerobic Culture Bottle Final 12/30/16- 0033 ML No Growth Day 5 * ML - MAIN LAB ([facility]) . END OF REPORT * ML=Testing performed at Main Lab DEPARTMENT OF PATHOLOGY, [address] [place] [address] Andrea Blair M.D. Director [facility] # [id number] 32 SEE RESULT BELOW Name: RAND PARRISH : [address]: Hayden GRANADOS Acct: [id number] Unit: [id number] AGE: 36 Location: [place] [id number] Re12/24/16 Dis: 12/25/16 SEX: F Status: DIS Zaina SPEC: [id number] LD: 12/24/16-[address] [facility] [address]: Zack Jones MD REQ: [id number] RECD: 12/24/16 STATUS: HAILY ESPINOZA DR: Dianne Garcia MD _ SOURCE: URINE SPDESC: ORDERED: Urine Culture Procedure Result Reported Site Urine Culture Final 12/25/16- 1247 ML No Growth (<1,000 CFU/mL) * ML - MAIN LAB ([facility]) . END OF REPORT * ML=Testing performed at Main Lab DEPARTMENT OF PATHOLOGY, [address] [place] [address] Andrea Blair M.D. Director [facility] # [id number] 33 Please note: The following may produce a false positive D Dimer test: - Rheumatoid factor greater than 60 IU/ml - Plasma hemoglobin greater than 0.05 gm/dl - Bilirubin greater than 50 mg/dl - Lipids greater than 1000 mg/dl - FDP greater than 20 ug/ml 34 NON-FASTING 35 result sneha'd and given to Dr Garcia in María's 36 1 sst 37 Negative <1:80 Borderline 1:80 Positive >1:80 38 3SST 39 Negative <0.60 Equivocal 0.60 - 0.69 Positive >0.69 40 Negative <30.0 Equivocal 30.0 - 34.9 Positive >34.9 A positive result is generally indicative of acute infection, reactivation or persistent IgM production. 41 Negative <0.9 Equivocal 0.9 - 1.1 Positive >1.1 42 Negative <0.9 Equivocal 0.9 - 1.1 Positive >1.1 43 Negative <36.0 Equivocal 36.0 - 43.9 Positive >43.9 44 Negative < 9.0 Equivocal 9.0 - 10.9 Positive >10.9 45 Negative <18.0 Equivocal 18.0 - 21.9 Positive >21.9 46 Negative <18.0 Equivocal 18.0 - 21.9 Positive >21.9 47 EBV Interpretation Chart Interpretation EBV-IgM EA(D)-IgG VCA-IgG EBNA-IgG EBV Seronegative - - - - Early Phase + - - - Acute Primary + +or- + - Infection Convalescence/Past - +or- + + Infection Reactivated +or- + + + Infection + Antibody Present - Antibody Absent 48 RESULTS VERIFIED BY REPEAT ANALYSIS 49 Effective September 03, 2014 at 12:00pm there is an updated reference range. 50 Please note: The following may produce a false positive D Dimer test: - Rheumatoid factor greater than 60 IU/ml - Plasma hemoglobin greater than 0.05 gm/dl - Bilirubin greater than 50 mg/dl - Lipids greater than 1000 mg/dl - FDP greater than 20 ug/ml 51 Because ethnic data is not always readily [...] 15-29 5 Kidney failure <15 (or dialysis) 52 Reference Range and Interpretation: TnI (ng/mL) Interpretation Less Than 0.03 ng/mL Not supportive of diagnosis of HI 0.03 - 0.50 ng/mL Indeterminate: suggest serial studies if clinically indicated. Greater than 0.5 ng/mL Consistent with diagnosis of HI 53 Acute inflammation: >10.00 54 consistent w/ previous results 55 consistent w/ previous results 56 Enterococcus faecalis - (Group D) 20,000 col/ml URINE CULTURE organism 1 Enterococcus faecalis - (Group D) 20,000 col/ml Gentamicin 500 SYN-S Susceptible Nitrofurantoin 32 Susceptible Penicillin-G 4 Susceptible Streptomycin 2000 SYN-S Susceptible Vancomycin 2 Susceptible 57 Vitamin D deficiency has been defined by the [place] of [employer] and an Endocrine Society practice guideline as a level of serum 25-OH vitamin D less than 20 ng/mL (1,2). The Endocrine Society went on to further define vitamin D insufficiency as a level between 21 and 29 ng/mL (2). 1. IOM ([place] of [employer]). 2010. Dietary reference intakes for calcium and D. [place]: The National Academies Press. 2. Pedrito MF, Kade TRIPATHI, Maciej WILKINSON, et al. Evaluation, treatment, and prevention of vitamin D deficiency: an Endocrine Society clinical practice guideline. JCEM. 2011 Jan; 96(7):1911-30. 58 result sneha'd 59 Vitamin D deficiency has been defined by the [place] [employer] and an Endocrine Society practice guideline as a level of serum 25-OH vitamin D less than 20 ng/mL (1,2). The Endocrine Society went on to further define vitamin D insufficiency as a level between 21 and 29 ng/mL (2). 1. IOM ([place] [employer]). 2010. Dietary reference intakes for calcium and D. [place]: The National Academies Press. 2. Pedrito MF, Kade [place], Maciej WILKINSON, et al. Evaluation, treatment, and prevention of vitamin D deficiency: an Endocrine Society clinical practice guideline. JCEM. 2010; 96(7):1911-30. 60 Recent studies consider the lower limit of 32.0 ng/mL to be a threshold for optimal health. Chin CREWS. J Nutr. 2004;135(2):317-22. Procedures Date CPT Code Description Status 12/24/2016 84755 Pulse Oximetry Completed 12/13/2016 05871 Pulse Oximetry Completed 10/19/2014 67946 Pulse Oximetry Completed 10/05/2014 58481 Farhat flow vital capacity, total (seperate procedure) Completed 09/20/2014 52754 Pulse Oximetry Completed 09/20/2014 40505 Nebulizer Treatment Completed 10/09/2010 42121 Pulse Oximetry Completed Encounters Type Date Location Provider CPT E/M Dx Office Visit 10/12/2017 11:00a [place] [address] L30.9 Office Visit 09/10/2017 4:30p [facility] Dianne Garcia M.D. 47664 I10 E03.9 B35.3 R10.811 Office Visit 06/12/2017 4:20p [facility] Dianne Garcia M.D. 61612 I10 J45.20 E66.9 E03.9 F41.9 B35.1 K21.9 Office Visit 04/09/2017 11:00a [facility] Dianne Garcia M.D. 13120 Z00.01 J45.20 E66.9 F41.9 E03.9 N94.6 M25.549 R03.0 L03.115 Office Visit 02/06/2017 3:45p [place] [address] R21 H10.89 Office Visit 12/28/2016 3:20p [facility] Dianne Garcia M.D. 05071 R06.2 R06.02 Office Visit 12/24/2016 9:15a [facility] Bryson Coello-Husam 54946 R05 R06.02 Office Visit 12/21/2016 4:00p [facility] Dianne Garcia M.D. 31468 R21 R06.2 Office Visit 12/13/2016 3:45p [facility] Office Hodan Gibson, [facility] [address] R06.2 R06.02 R06.00 R10.13 E66.3 R06.83 Office Visit 08/23/2016 2:00p [facility] Emy Welch, [facility] 92298 R53.83 R10.811 Office Visit 01/27/2016 10:15a [facility] Hodan Gibson, [facility] 61513 M25.552 M25.562 M25.572 R32 N94.1 E66.3 E03.8 Z00.01 Office Visit 11/18/2015 9:00a [facility] Hodan Gibson [facility] 55435 L04.9 R51 Office Visit 01/24/2015 8:40a [facility] Dianne Garcia M.D. 48146 V70.0 244.8 281.9 272.2 278.00 719.40 Office Visit 12/06/2014 8:00a [facility] Dianne Garcia M.D. 18638 493.92 300.00 244.8 281.9 V77.91 Office Visit 10/19/2014 3:10p Main Office Dianne Garcia M.D. 89584 493.92 300.00 Office Visit 10/05/2014 1:40p [facility] Tanner Franco M.D. 64498 466.0 Office Visit 09/20/2014 3:45p [facility] Hodan Gibson [facility] 62665 786.05 466.0 493.92 Office Visit 07/07/2014 9:10a [facility] Dianne Garcia M.D. 44601 719.46 719.41 Office Visit 01/15/2014 1:40p [facility] Enrrique Guerin M.D. 64268 V70.0 244.8 599.72 Office Visit 06/16/2013 10:40a [facility] Office Izaiah Culver M.D. 03363 780.2 719.46 Office Visit 05/26/2013 3:00p [facility] Office Izaiah Culver M.D. 39520 780.2 784.0 780.79 244.8 281.9 786.05 Office Visit 01/07/2013 2:00p [facility] Office Izaiah Culver M.D. 15098 V70.0 V77.91 244.8 278.02 719.46 281.9 389.9 709.9 791.7 Office Visit 08/14/2012 1:15p [facility] Office KRISTEN Ambriz 10295 246.9 Office Visit 02/14/2012 4:20p Main Office Renee Downing M.D. 67339 796.2 246.9 389.11 Office Visit 01/21/2012 8:40a [facility] Office Renee Downing M.D. 82283 246.9 278.02 796.2 281.9 268.9 719.46 Office Visit 11/21/2011 9:00a [facility] Renee Downing M.D. 70288 V70.0 246.9 268.9 278.02 692.9 796.2 782.0 V65.49 389.9 V06.5 599.72 626.0 Office Visit 09/03/2011 3:20p [facility] Office Renee Downing M.D. 88842 461.8 796.2 Office Visit 10/09/2010 1:15p Main Office KRISTEN Ambriz 26184 465.9 Office Visit 09/13/2010 3:00p Main Office Renee Downing M.D. 42390 V70.0 246.9 268.9 799.81 448.1 Plan of Care Future Appointment(s):01/14/2018 4:30 pm - Dianne Garcia M.D. at [facility] [id number]/16/2017 - Hodan Gibson, FNPR23.8 Other skin changesNew Xrays: Ultrasound Breast Complete RightMammography Screening, Bilateral; 2-View Each LtglqtP29.4 MastodyniaNew Xrays:Ultrasound Breast Complete RightMammography Screening, Bilateral; 2-View Each BreastAllComments:~B_~U_Medication Management~ b_~u_ Patient Understands medications he 's taking? Yes No Are there Barriers to Adherence? Yes No Has the patient been asked about herbal supplements and therapies, and OTC meds? Yes No
[2017-12-06 20:55] VITALS: BP 120/84
--- NOTE | 2017-12-06 21:28 | UC ---
Skin Complaint HPI - HPI Summary HPI Summary: Per [facility] consultant "about 5 insect bites to back of left knee and left leg 2 days ago. Areas are swollen, painful, warm, and red. " Hs ewas here several weeks ago w/ same thing on her left arm. she was given augmentin and sx resolved very quickly after that. + itching and painful. no fevers. no d/c. no swelling of lips, tongue or throat. no SOb, n/v/d. she tolerated augmentin w/o issues. - History of Current Complaint Chief Complaint: UCSkin Time Seen by Provider: 12/06/17 21:25 Stated Complaint: INSECT BITES - LEFT LEG Hx Last Menstrual Period: 11/16/17 Pain Intensity: 4 - Allergy/Home Medications Allergies/Adverse Reactions: Allergies Allergy/AdvReac Type Severity Reaction Status Date / Time seasonal, cats Allergy Congestion Uncoded 12/06/17 20:51 Review of Systems Constitutional: Negative Skin: Rash Eyes: Negative ENT: Negative Respiratory: Negative Cardiovascular: Negative Gastrointestinal: Negative Genitourinary: Negative Motor: Negative Neurovascular: Negative Musculoskeletal: Negative Neurological: Negative Psychological: Negative Is Patient Immunocompromised?: No All Other Systems Reviewed And Are Negative: Yes PMH/Surg Hx/FS Hx/Imm Hx Previously Healthy: Yes - Surgical History Surgical History: None - Family History Known Family History: Positive: Cardiac Disease - Father had AL at 40 y/o Negative: Hypertension, Diabetes - Social History Alcohol Use: Occasionally Substance Use Type: None Smoking Status (MU): Never Smoked Tobacco Have You Smoked in the Last Year: No - Immunization History Most Recent Influenza Vaccination: 2017 Most Recent Tetanus Shot: Within past 5 years Most Recent Pneumonia Vaccination: Never Physical Exam Triage Information Reviewed: Yes Appearance: Well-Appearing, No Pain Distress, Well-Nourished Vital Signs: Initial Vital Signs Temp 97.7 F 12/06/17 20:48 Pulse 77 12/06/17 20:48 Resp 15 12/06/17 20:48 BP 120/84 12/06/17 20:48 Pulse Ox 100 12/06/17 20:48 Vital Signs Reviewed: Yes Eye Exam: Normal ENT Exam: Normal ENT: Positive: Pharynx normal, TMs normal, Other - tongue nml. no swelling. uvula nml Neck exam: Normal Neck: Positive: Supple, Nontender, No Lymphadenopathy Respiratory: Positive: Lungs clear, Normal breath sounds, No respiratory distress, No accessory muscle use Cardiovascular: Positive: RRR Abdominal Exam: Normal Abdomen Description: Positive: Nontender, Soft Musculoskeletal Exam: Normal Neurological Exam: Normal Psychological Exam: Normal Skin: Positive: Other - lef calf and popliteal fossa with large areas of erythema golf ball sized. central clear fluid d/c. no streaks. some of them are tender. Course/Dx - Course Course Of Treatment: large impressive areas. treated well prev w/ augmentin w/ quick resolution. -medrol dose pack and zpack given. pt very agreeable w/ plan - Differential Diagnoses - Skin Complaint Differential Diagnoses: Allergic Reaction, Cellulitis, Contact Dermatitis, Urticaria - Diagnoses Provider Diagnoses: bug bites, cellulitis Discharge - Sign-Out/Discharge Documenting (check all that apply): Post-Discharge Follow Up - Discharge Plan Condition: Stable Disposition: HOME Prescriptions: Amoxicillin/Clavulanate TAB* [Augmentin TAB 875*] 875 mg PO BID #19 tab methylPREDNISolone [Medrol Dosepak 4 MG*] 4 mg PO DAILY #1 an Patient Education Materials: Cellulitis (ED), Insect Bite or Sting (ED) Referrals: Dianne Garcia MD [Primary Care Provider] - 5 Days Additional Instructions: -Make sure to take a probiotic daily while on antibiotics to help prevent a potential complication of antibiotic use called c diff. Some well known brands that can be found OTC are florastor, align and LightTable. Make sure to complete the entire prescription unless advised otherwise by your health care provider -We discussed risks of prednisone including but not limited to anxiety, agitation, insomnia, GI upset, elevated blood pressures and blood sugar readings , adrenal crisis and avascular necrosis of the hip. -We gave you the first dose of augmentin here. - Billing Disposition and Condition Condition: STABLE Disposition: HOME
[2017-12-06] MEDS ORDERED: Amoxicillin/Clavulanate TAB* 875 MG PO ONE (21:34)
== END 2017-12-06 21:43 | disposition home or self-care (01) ==
LOC: UCCORT 20:29
DX: S80.862A Insect bite (nonvenomous), left lower leg, initial encounter (principal); L03.116 Cellulitis of left lower limb; W57.XXXA Bitten or stung by nonvenomous insect and other nonvenomous arthropods, initial encounter; Y92.9 Unspecified place or not applicable
CPT/HCPCS: 99212; A9270-GY; G0463

== ENCOUNTER 2018-03-03 17:10 | Emergency (ER) | payer BC ==
[2018-03-03 17:56] VITALS: BP 133/82
[2018-03-03] MEDS ORDERED: Tetan/Diph/Pertus SYR(Tdap)* 0.5 ML SYR(BOOSTRIX) use SYR IM ONE (18:02)
--- NOTE | 2018-03-03 18:15 | UC ---
Laceration HPI - HPI Summary HPI Summary: 37 year old female presents with superficial laceration to palmar aspect of left hand. Occurred couple hours ago at work while moving a metal book case. Bleeding controlled at time of exam. Last tetanus 11/2011. Right hand dominant. - History Of Current Complaint Chief Complaint: Raoul Stated Complaint: LEFT HAND LACERATION Time Seen by Provider: 03/03/18 17:58 Hx Obtained From: Patient Hx Last Menstrual Period: 02/18/18 Laceration Location: Hand Mechanism Of Injury: Sharp Trauma Severity: Mild Pain Intensity: 4 Aggravating Factors: Nothing Hands: 1 - 1 cm superficial laceration Related History: Occupational Injury - Allergies/Home Medications Allergies/Adverse Reactions: Allergies Allergy/AdvReac Type Severity Reaction Status Date / Time seasonal, cats Allergy Congestion Uncoded 03/03/18 17:56 PMH/Surg Hx/FS Hx/Imm Hx Previously Healthy: Yes Endocrine History: Hypothyroidism Cardiovascular History: Hypertension Respiratory History: Asthma GI/ History: Gastroesophageal Reflux - Surgical History Surgical History: None - Family History Known Family History: Positive: Cardiac Disease - Father had MO at 40 y/o Negative: Hypertension, Diabetes - Social History Occupation: Employed Full-time Lives: With Family Alcohol Use: Occasionally Substance Use Type: None Smoking Status (MU): Never Smoked Tobacco Have You Smoked in the Last Year: No - Immunization History Most Recent Influenza Vaccination: 2016 Most Recent Tetanus Shot: Within past 5 years Most Recent Pneumonia Vaccination: Never Review of Systems Constitutional: Negative Skin: Other - See HPI Motor: Negative Neurovascular: Negative Musculoskeletal: Negative Is Patient Immunocompromised?: No All Other Systems Reviewed And Are Negative: Yes Physical Exam Triage Information Reviewed: Yes Appearance: Well-Appearing, No Pain Distress, Well-Nourished Vital Signs: Initial Vital Signs Temp 98.7 F 03/03/18 17:50 Pulse 85 03/03/18 17:50 Resp 16 03/03/18 17:50 BP 133/82 03/03/18 17:50 Pulse Ox 100 03/03/18 17:50 Vital Signs Reviewed: Yes Respiratory: Positive: No respiratory distress Cardiovascular: Positive: Pulses Normal, Brisk Capillary Refill Musculoskeletal Exam: Normal Neurological: Positive: Alert, Other: - Sensation intact distally Skin: Positive: Other - 1 cm superficial laceration to palmar aspect of left hand at base of index finger (see diagram) Laceration Repair - Laceration Repair 1 Description: Linear Laceration Size After Repair: Length (cm) - 1 Cleansing Completed Via Routine Prep: Yes Closure Material: Skin Adhesive, SteriStrips - (2) 1/4 inch strips Laceration Course/Dx - Differential Dx - Laceration/Wound Provider Diagnoses: superficial laceration palmar left hand Discharge - Sign-Out/Discharge Documenting (check all that apply): Patient Departure All imaging exams completed and their final reports reviewed: No Studies - Discharge Plan Condition: Stable Disposition: HOME Patient Education Materials: Laceration (ED), Skin Adhesive Care (ED) Referrals: Dianne Garcia MD [Primary Care Provider] - If Needed Additional Instructions: Your laceration was repaired today using Steri-Strips and a skin adhesive. Do not get the skin adhesive wet for 24 hours. Keep a clean dressing over wound until healed but do NOT apply any ointments or lotions as this may dissolve the adhesive. The Steri-Strips will slowly begin to peel off from the ends. You may trim loose ends but do not pull or peel off the Steri-Strips as this may cause the wound or reopen. The skin adhesive will slowly wear off over next several days. You may use an over the counter pain medication such as acetaminophen (Tylenol) or ibuprofen (Advil, Motrin) according to directions as needed. Watch for signs of infection including increased pain that is not managed with pain medication, redness that spreads, swelling, or pus draining from the wound. Seek immediate medical attention if any of these occur. - Billing Disposition and Condition Condition: STABLE Disposition: Home
== END 2018-03-03 18:39 | disposition home or self-care (01) ==
LOC: UCCORT 17:10
DX: S61.412A Laceration without foreign body of left hand, initial encounter (principal); W22.8XXA Striking against or struck by other objects, initial encounter; Y93.89 Activity, other specified; Y92.9 Unspecified place or not applicable; Z23 Encounter for immunization
CPT/HCPCS: 12001; 90471; 90715; 99211; G0463

== ENCOUNTER 2018-03-23 16:29 | Emergency (ER) | payer BC ==
[2018-03-23 17:40] VITALS: BP 142/92
[2018-03-23] MEDS ORDERED: Sulfamethox/Trimethoprim DS 800/160* TAB PO ONE (17:59)
--- NOTE | 2018-03-23 17:59 | UC ---
Skin Complaint HPI - HPI Summary HPI Summary: Pt worried about infected insect bite on RIGHT calf since night. Initially noticed "couple bumps" on RIGHT calf which has progressively gotten bigger/painful/red and warm to touch. Denies fever/chills. Noticed clear drainage from bump on R calf. No hx MRSA. Patient states this is the third time that she has been bitten by insects and has received antibiotics for cellulitis. Site is still very itchy. - History of Current Complaint Chief Complaint: UCLowerExtremity Time Seen by Provider: 03/23/18 17:39 Stated Complaint: INFLAMMATION LOWER LEFT LEG Hx Obtained From: Patient Hx Last Menstrual Period: started 03/11/18 ?: No Onset/Duration: Sudden Onset, Lasting Days Skin Exposure Onset/Duration: Days Ago Onset Severity: Mild Current Severity: Moderate Pain Intensity: 4 Location: Discrete Aggravating Factor(s): Touch Alleviating Factor(s): Nothing Associated Signs & Symptoms: Positive: Negative Related History: Insect Bite/Sting - Allergy/Home Medications Allergies/Adverse Reactions: Allergies Allergy/AdvReac Type Severity Reaction Status Date / Time seasonal, cats Allergy Congestion Uncoded 03/23/18 17:31 Review of Systems Constitutional: Negative Skin: Rash All Other Systems Reviewed And Are Negative: Yes PMH/Surg Hx/FS Hx/Imm Hx Endocrine History: Hypothyroidism Cardiovascular History: Hypertension Respiratory History: Asthma GI/ History: Gastroesophageal Reflux - Surgical History Surgical History: None - Family History Known Family History: Positive: Cardiac Disease - Father had MT at 40 y/o, Hypertension, Other - hypothyroidism Negative: Diabetes - Social History Alcohol Use: Occasionally Substance Use Type: None Smoking Status (MU): Never Smoked Tobacco Have You Smoked in the Last Year: No - Immunization History Most Recent Influenza Vaccination: 2016 Most Recent Tetanus Shot: 03/03/18 Most Recent Pneumonia Vaccination: Never Physical Exam Triage Information Reviewed: Yes Appearance: Well-Appearing, No Pain Distress, Well-Nourished Vital Signs: Initial Vital Signs Temp 97.2 F 03/23/18 17:33 Pulse 98 03/23/18 17:33 Resp 16 03/23/18 17:33 BP 142/92 03/23/18 17:33 Pulse Ox 98 03/23/18 17:33 Vital Signs Reviewed: Yes Eyes: Positive: Conjunctiva Clear ENT: Positive: Hearing grossly normal Neck: Positive: Supple Respiratory: Positive: Chest non-tender Cardiovascular: Positive: Pulses Normal, Brisk Capillary Refill Musculoskeletal: Positive: Strength Intact Skin Exam: Other Skin: Positive: Other - erythematous induration approximately 4cm in diameter on posterior aspect of right calf surrounding central unroofed vesicle with serous discharge. Course/Dx - Course Course Of Treatment: patient presents with cellulitis of right calf after insect bite. Start bactrim bid for 5 days as prescribed and bactroban ointment. F/u with PCP in one week - Diagnoses Provider Diagnoses: Cellulitis. Insect bite allergic reaction. HTN Discharge - Sign-Out/Discharge Documenting (check all that apply): Patient Departure All imaging exams completed and their final reports reviewed: No Studies - Discharge Plan Condition: Stable Disposition: HOME Prescriptions: Sulfamethox/Trimethoprim DS* [Bactrim DS 800/160 TAB*] 1 tab PO BID 5 Days #10 tab Patient Education Materials: Sulfamethoxazole/Trimethoprim (By mouth), Mupirocin (On the skin), Insect Bite or Sting (ED) Referrals: Dianne Garcia MD [Primary Care Provider] - - Billing Disposition and Condition Condition: STABLE Disposition: Home
[2018-03-23] MEDS ORDERED: Mupirocin 2% OINT* TUBE TOPICAL ONE (18:03)
[2018-03-23] MEDS ORDERED: Mupirocin 2% OINT* TUBE TOPICAL SCH (21:00)
== END 2018-03-23 18:14 | disposition home or self-care (01) ==
LOC: UCCORT 16:29
CPT/HCPCS: 99213; A9270-GY; G0463

== ENCOUNTER 2019-01-28 18:45 | Emergency (ER) | payer BC ==
[2019-01-28 19:08] VITALS: BP 135/79
--- NOTE | 2019-01-28 19:17 | UC ---
Respiratory Complaint HPI - HPI Summary HPI Summary: Pt presents with c/o cough, nasal congestion, fatigue, and "chest tightness" X 3 -4 days. Pt denies fever, chills, ST, nausea or vomiting. Pt states that she has asthma but recently reduced her use of asthma medication per provider instructions as her asthma has been "good" - History of Current Complaint Chief Complaint: UCGeneralIllness Stated Complaint: TIRED,CHEST CONGESTION Time Seen by Provider: 01/28/19 19:09 Hx Obtained From: Patient Hx Last Menstrual Period: 01/20/19 ?: No Onset/Duration: Gradual Onset, Lasting Days, Still Present Timing: Constant Severity Initially: Mild Severity Currently: Mild Pain Intensity: 2 Character: Cough: Productive Aggravating Factors: Deep Breaths, Recumbent Position Alleviating Factors: Spontaneous Resolution Associated Signs And Symptoms: Positive: URI, Nasal Congestion Related History: Seasonal Allergies - Risk Factors Pulmonary Embolism Risk Factors: Negative Cardiac Risk Factors: Negative Pseudomonas Risk Factors: Chronic Lung Disease Tuberculosis Risk Factors: Negative - Allergies/Home Medications Allergies/Adverse Reactions: Allergies Allergy/AdvReac Type Severity Reaction Status Date / Time seasonal, cats Allergy Congestion Uncoded 01/28/19 19:09 PMH/Surg Hx/FS Hx/Imm Hx Previously Healthy: Yes - Surgical History Surgical History: None - Family History Known Family History: Positive: Cardiac Disease - Father had AR at 40 y/o, Hypertension, Other - hypothyroidism Negative: Diabetes - Social History Occupation: Employed Full-time Lives: With Family Alcohol Use: Weekly Substance Use Type: None Smoking Status (MU): Never Smoked Tobacco Have You Smoked in the Last Year: No - Immunization History Most Recent Influenza Vaccination: 2016 Most Recent Tetanus Shot: 03/03/18 Most Recent Pneumonia Vaccination: Never Vaccination Up to Date: Yes Review of Systems All Other Systems Reviewed And Are Negative: Yes Constitutional: Positive: Fatigue Skin: Positive: Negative Eyes: Positive: Negative ENT: Positive: Sinus Congestion Respiratory: Positive: Cough Cardiovascular: Positive: Negative Gastrointestinal: Positive: Negative Genitourinary: Positive: Negative Motor: Positive: Negative Neurovascular: Positive: Negative Musculoskeletal: Positive: Myalgia Neurological: Positive: Negative Psychological: Positive: Negative Is Patient Immunocompromised?: No Physical Exam Triage Information Reviewed: Yes Appearance: Well-Appearing Vital Signs: Initial Vital Signs Temp 98.5 F 01/28/19 19:01 Pulse 82 07/24/19 19:01 Resp 16 01/28/19 19:01 BP 135/79 01/28/19 19:01 Pulse Ox 100 01/28/19 19:01 Vital Signs Reviewed: Yes Eye Exam: Normal ENT: Positive: Nasal congestion Dental Exam: Normal Neck exam: Normal Respiratory Exam: Normal Respiratory: Positive: Lungs clear, Normal breath sounds Cardiovascular Exam: Normal Musculoskeletal Exam: Normal Neurological Exam: Normal Psychological Exam: Normal Skin Exam: Normal Respiratory Course/Dx - Differential Dx/Diagnosis Differential Diagnosis/HQI/PQRI: Bronchitis, Exacerbation Of COPD Provider Diagnosis: Viral respiratory illness, Cough Discharge - Sign-Out/Discharge Documenting (check all that apply): Patient Departure All imaging exams completed and their final reports reviewed: No Studies - Discharge Plan Condition: Stable Disposition: HOME Prescriptions: predniSONE TAB* [Deltasone 20 MG TAB*] 20 mg PO DAILY #4 tab Patient Education Materials: Viral Syndrome (ED), Acute Cough (ED) Referrals: Dianne Garcia MD [Primary Care Provider] - If Needed Additional Instructions: Please follow up with your PCP as needed. - Billing Disposition and Condition Condition: STABLE Disposition: Home
== END 2019-01-28 19:26 | disposition home or self-care (01) ==
LOC: UCCORT 18:45
DX: J06.9 Acute upper respiratory infection, unspecified (principal)
CPT/HCPCS: 99212; G0463

== ENCOUNTER 2019-08-28 12:33 | Emergency (ER) | payer BC ==
[2019-08-28 12:56] VITALS: BP 137/85
--- NOTE | 2019-08-28 13:00 | UC ---
Respiratory Complaint HPI - HPI Summary HPI Summary: 38-year-old female who has had cough and cold symptoms for approximately 4 days. She does have asthma, she is a nonsmoker and she did get a flu shot in fall. She states she has had clear sputum until today when she started having a productive cough of green sputum. - History of Current Complaint Chief Complaint: UCRespiratory Stated Complaint: COUGH Time Seen by Provider: 08/28/19 12:46 Hx Obtained From: Patient Hx Last Menstrual Period: 08/27/2019 ?: No Onset/Duration: Gradual Onset Timing: Intermittent Episodes Severity Initially: Mild Severity Currently: Mild Pain Intensity: 0 Character: Cough: Productive - Productive cough of clear sputum for 3 days but green sputum starting today Aggravating Factors: Deep Breaths Alleviating Factors: Nothing Associated Signs And Symptoms: Positive: Wheezing, URI, Nasal Congestion, Sinus Discomfort - Allergies/Home Medications Allergies/Adverse Reactions: Allergies Allergy/AdvReac Type Severity Reaction Status Date / Time seasonal, cats Allergy Congestion Uncoded 08/28/19 12:50 Home Medications: Home Medications Levothyroxine TAB* [Synthroid 25 MCG TAB*] 25 mcg PO QAM 07/18/13 [History Confirmed 08/28/19] Albuterol HFA INHALER* [Ventolin HFA Inhaler*] 1 - 2 puff INH Q4H PRN 12/18/16 [ History Confirmed 08/28/19] Omeprazole CAP (NF) [Prilosec CAP* 20 MG] 40 mg PO DAILY 12/18/16 [History Confirmed 08/28/19] Hydrochlorothiazide TAB* [Hydrodiuril TAB*] 25 mg PO DAILY 06/05/17 [History Confirmed 08/28/19] Multivitamin [Multivitamins] 1 cap PO DAILY 09/18/17 [History Confirmed 08/28/19 ] FLUoxetine CAP* [Prozac CAP*] 40 mg PO DAILY 07/04/18 [History Confirmed ] Mometasone/Formoter 100/5 MDI* [Dulera 100/5 MDI*] 2 puff INH BID 10/07/18 [ History Confirmed 08/28/19] Albuterol 2.5MG/3ML (0.083%)* [Ventolin 2.5 MG/3 ML NEB.KRISH*] 2.5 mg INH Q4H PRN #30 units 08/28/19 [Rx] Azithromyxin BENY (NF) [Z-Beny (Zithromax) 250 mg tabs #6] 2 tab PO .TODAY, THEN 1 DAILY #6 tab 08/28/19 [Rx] Desloratadine [Desloratadine Odt] 2.5 mg PO DAILY 08/28/19 [History Confirmed ] predniSONE 10 mg TAB [Deltasone 10 MG TAB*] 10 mg PO DAILY 12 Days #30 tab 08/28 [Rx] PMH/Surg Hx/FS Hx/Imm Hx Previously Healthy: Yes Endocrine History: Thyroid Disease Respiratory History: Asthma Psychological History: Anxiety - Surgical History Surgical History: None - Family History Known Family History: Positive: Cardiac Disease - Father had TN at 40 y/o, Hypertension, Other - hypothyroidism Negative: Diabetes - Social History Alcohol Use: Occasionally Substance Use Type: None Smoking Status (MU): Never Smoked Tobacco Have You Smoked in the Last Year: No - Immunization History Most Recent Influenza Vaccination: 2016 Most Recent Tetanus Shot: 03/03/18 Most Recent Pneumonia Vaccination: Never Vaccination Up to Date: Yes Review of Systems All Other Systems Reviewed And Are Negative: Yes ENT: Positive: Nasal Discharge, Sinus Congestion, Sinus Pain/Tenderness Respiratory: Positive: Cough - Productive cough of clear sputum until today and today has started having green sputum and wheezing. Is Patient Immunocompromised?: No Physical Exam Triage Information Reviewed: Yes Appearance: Well-Appearing, No Pain Distress, Well-Nourished Vital Signs: Initial Vital Signs Temp 98.1 F 08/28/19 12:49 Pulse 81 08/28/19 12:49 Resp 16 08/28/19 12:49 BP 137/85 08/28/19 12:49 Pulse Ox 99 08/28/19 12:49 Vital Signs Reviewed: Yes Eyes: Positive: Conjunctiva Clear ENT: Positive: Pharynx normal, Nasal congestion, Nasal drainage - Clear nasal coryza, TMs normal, Sinus tenderness - Mild tenderness over the maxillary sinuses bilaterally., Uvula midline Neck: Positive: Supple, Nontender, No Lymphadenopathy Respiratory: Positive: No respiratory distress, No accessory muscle use, Rhonchi , Wheezing - Scattered rhonchi and wheezing throughout all lung [place], no distress. Cardiovascular: Positive: RRR, No Murmur, Pulses Normal, Brisk Capillary Refill Musculoskeletal Exam: Normal Neurological Exam: Normal Psychological Exam: Normal Skin Exam: Normal Respiratory Course/Dx - Course Course Of Treatment: DuoNeb treatment: Patient felt much better following the breathing treatment with increased aeration and decreased wheezing. Lungs are almost clear to auscultation. A prescription for albuterol nebulizer solution was given and I'm going to treat her bronchitis with a Z-Beny and tapering prednisone. She is to follow-up with her primary care provider on Saturday if no improvement. - Differential Dx/Diagnosis Provider Diagnosis: Bronchitis Discharge ED - Sign-Out/Discharge Documenting (check all that apply): Patient Departure All imaging exams completed and their final reports reviewed: No Studies - Discharge Plan Condition: Good Disposition: HOME Prescriptions: Albuterol 2.5MG/3ML (0.083%)* [Ventolin 2.5 MG/3 ML NEB.KRISH*] 2.5 mg INH Q4H PRN #30 units PRN Reason: Wheezing Azithromyxin BENY (NF) [Z-Beny (Zithromax) 250 mg tabs #6] 2 tab PO .TODAY, THEN 1 DAILY #6 tab predniSONE 10 mg TAB [Deltasone 10 MG TAB*] 10 mg PO DAILY 12 Days #30 tab Patient Education Materials: Acute Bronchitis (ED) Referrals: Dianne Garcia MD [Primary Care Provider] - Additional Instructions: Increase fluids, use her albuterol nebulizer every 4-6 hours as needed for wheezing. Take the prednisone with food. Definite follow-up with your primary care provider on Saturday or Saturday if no improvement. - Billing Disposition and Condition Condition: GOOD Disposition: Home
[2019-08-28] MEDS ORDERED: Albuterol/Ipratropium NEB.SOL* Albuterol 2.5 MG/Ipratropium 0.5 MG 3 ML INH ONE (13:04)
== END 2019-08-28 13:48 | disposition home or self-care (01) ==
LOC: UCCORT 12:33
DX: J45.909 Unspecified asthma, uncomplicated (principal); E07.9 Disorder of thyroid, unspecified; F41.9 Anxiety disorder, unspecified; R09.89 Other specified symptoms and signs involving the circulatory and respiratory systems; R09.81 Nasal congestion; Z79.899 Other long term (current) drug therapy; Z91.09 Other allergy status, other than to drugs and biological substances
CPT/HCPCS: 99212; A9270-GY; G0463